=== PATIENT | male | born 1995 | race Caucasian/White ===

== ENCOUNTER 2017-07-15 09:49 | Emergency (ER) | payer SELFPAY ==
[~2017-07-15 09:49] MED LIST: CEPH500C3 PO; LORTA5 PO
[2017-07-15 09:50] VITALS: BP 166/80; PULSE 74; RESP 12; TEMP 98.6; O2SAT 100
== END 2017-07-15 11:48 | disposition left against medical advice (07) ==
LOC: NED 09:49
DX: Z00.8 Encounter for other general examination (principal); Z53.21 Procedure and treatment not carried out due to patient leaving prior to being seen by health care provider
CPT/HCPCS: 99281

== ENCOUNTER 2017-08-05 13:22 | Emergency (ER) | payer BC ==
[~2017-08-05] VITALS: Ht 177.8 cm; Wt 62.0 kg
[2017-08-05 13:24] VITALS: BP 132/89; PULSE 108; RESP 24; TEMP 98.4; O2SAT 97
[2017-08-05] MEDS ORDERED: ARIP2 PO (13:31)
[2017-08-05] MEDS ORDERED: SODIUM CHLORIDE 0.9% FLUSH 10 ML FLUSH IV FLUSH PRN (14:00)
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
--- NOTE | 2017-08-05 14:31 | RADRPT ---
EXAM DATE/TIME: 08/05/2017 14:09 [place] COMPARISON: No previous studies available for comparison. INDICATIONS : Shaking since yesterday. RADIATION DOSE: 34.88 CTDIvol (mGy) MEDICAL HISTORY : None SURGICAL HISTORY : None. ENCOUNTER: Initial ACUITY: 2 days PAIN SCALE: 0/10 LOCATION: Bilateral cranial TECHNIQUE: Multiple contiguous axial images were obtained of the head. Using automated exposure control and adj ustment of the mA and/or kV according to patient size, radiation dose was kept as low as reasonably a chievable to obtain optimal diagnostic quality images. DICOM format image data is available electro nically for review and comparison. FINDINGS: CEREBRUM: The ventricles are normal for age. No evidence of midline shift, mass lesion, hemorrhage or acute in farction. No extra-axial fluid collections are seen. POSTERIOR FOSSA: The cerebellum and brainstem are intact. The 4th ventricle is midline. The cerebellopontine angle i s unremarkable. EXTRACRANIAL: The visualized portion of the orbits is intact. SKULL: The calvaria is intact. No evidence of skull fracture. CONCLUSION: 1. No acute intracranial abnormality identified. Jah Centeno MD on August 05, 2017 at 14:29 Board Certified Radiologist. This report was verified electronically.
[2017-08-05 14:49] LABS: ALBUMIN 4.6 GM/DL (3.4-5.0); ALT (GPT) 30 U/L (9-52); AST (GOT) 22 U/L (15-39); AUTOMATED NEUTROPHIL # 10.1 TH/MM3 (1.8-7.7); BASOPHIL # 0.1 TH/MM3 (0-0.2); BASOPHIL % 0.5 % (0.0-2.0); BICARBONATE 28.6 MEQ/L (21.0-32.0); BLOOD UREA NITROGEN 14 MG/DL (7-18); CALCIUM 8.8 MG/DL (8.5-10.1); CHLORIDE 105 MEQ/L (98-107); CREATININE 1.11 MG/DL (0.60-1.30); EOSINOPHIL % 0.3 % (0.0-4.0); GLOMERULAR FILTRATION RATE 84 ML/MIN (>89); GLUCOSE,RANDOM 84 MG/DL (74-106); HEMATOCRIT 47.4 % (39.0-51.0); HEMOGLOBIN 16.3 GM/DL (13.0-17.0); LYMPH % 13.4 % (9.0-44.0); LYMPHOCYTE # 1.7 TH/MM3 (1.0-4.8); MEAN CORPUSCULAR HEMOGLOBIN 31.6 PG (27.0-34.0); MEAN CORPUSCULAR HGB CONC 34.4 % (32.0-36.0); MONO % 4.6 % (0.0-8.0); MONOCYTE # 0.6 TH/MM3 (0-0.9); NEUT % 81.2 % (16.0-70.0); PLATELET COUNT 205 TH/MM3 (150-450); RED BLOOD COUNT 5.16 MIL/MM3 (4.50-5.90); RED CELL DISTRIBUTION WIDTH 13.2 % (11.6-17.2); SODIUM (NA) 139 MEQ/L (136-145); WHITE BLOOD COUNT 12.4 TH/MM3 (4.0-11.0)
[2017-08-05 14:57] LABS: ALKALINE PHOSPHATASE 95 U/L (45-117); TOTAL BILIRUBIN ADULT 0.3 MG/DL (0.2-1.0); TOTAL PROTEIN 8.1 GM/DL (6.4-8.2)
[2017-08-05 15:53] LABS: BILIRUBIN, URINE NEG (NEG); BLOOD, URINE NEG (NEG); GLUCOSE,URINE NEG (NEG); KETONE, URINE NEG (NEG); MUCUS URINE FEW /lpf (OCC); NITRITE,URINE NEG (NEG); PH, URINE 6.5 (5.0-8.5); URINE COLOR YELLOW (YELLW/STRAW); URINE LEUKOCYTE ESTERASE NEG (NEG)
== END 2017-08-05 16:27 | disposition home or self-care (01) ==
LOC: NEPE 13:22
DX: R25.1 Tremor, unspecified (principal); R46.89 Other symptoms and signs involving appearance and behavior; F20.9 Schizophrenia, unspecified; F31.9 Bipolar disorder, unspecified; F90.9 Attention-deficit hyperactivity disorder, unspecified type; M41.9 Scoliosis, unspecified; Z72.0 Tobacco use; Z79.899 Other long term (current) drug therapy
CPT/HCPCS: 70450; 80053; 80307; 81001; 82550; 84443; 85025

== ENCOUNTER 2017-08-07 22:59 | Inpatient (IN) | payer BC, OTHER ==
[~2017-08-07] VITALS: Ht 172.7 cm; Wt 65.3 kg
[~2017-08-07 22:59] MED LIST changes: +ARIP2 PO; -CEPH500C3 PO; -LORTA5 PO
[2017-08-07 23:15] VITALS: BP 128/83; PULSE 83; RESP 18; TEMP 98.1; O2SAT 98
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
[2017-08-07 23:50] LABS: AUTOMATED NEUTROPHIL # 7.5 TH/MM3 (1.8-7.7); BASOPHIL # 0.1 TH/MM3 (0-0.2); BASOPHIL % 0.6 % (0.0-2.0); EOSINOPHIL # 0.1 TH/MM3 (0-0.4); EOSINOPHIL % 0.6 % (0.0-4.0); HEMATOCRIT 43.1 % (39.0-51.0); HEMOGLOBIN 14.7 GM/DL (13.0-17.0); LYMPH % 19.1 % (9.0-44.0); MEAN CELL VOLUME 90.3 FL (80.0-100.0); MEAN CORPUSCULAR HEMOGLOBIN 30.9 PG (27.0-34.0); MEAN CORPUSCULAR HGB CONC 34.2 % (32.0-36.0); MEAN PLATELET VOLUME 8.3 FL (7.0-11.0); MONO % 6.4 % (0.0-8.0); MONOCYTE # 0.7 TH/MM3 (0-0.9); NEUT % 73.3 % (16.0-70.0); PLATELET COUNT 186 TH/MM3 (150-450); RED BLOOD COUNT 4.77 MIL/MM3 (4.50-5.90); RED CELL DISTRIBUTION WIDTH 13.4 % (11.6-17.2); WHITE BLOOD COUNT 10.2 TH/MM3 (4.0-11.0)
[2017-08-08 00:01] LABS: BILIRUBIN, URINE NEG (NEG); BLOOD, URINE NEG (NEG); GLUCOSE,URINE NEG (NEG); HYALINE CAST, URINE 4 /lpf (RARE); KETONE, URINE NEG (NEG); MUCUS URINE FEW /lpf (OCC); NITRITE,URINE NEG (NEG); SQUAMOUS EPITHELIAL CELL URINE <1 /hpf (0-5); URINE COLOR YELLOW (YELLW/STRAW); URINE LEUKOCYTE ESTERASE NEG (NEG)
[2017-08-08 00:08] LABS: ALBUMIN 4.3 GM/DL (3.4-5.0); ALT (GPT) 23 U/L (9-52); AST (GOT) 21 U/L (15-39); BICARBONATE 26.8 MEQ/L (21.0-32.0); BLOOD UREA NITROGEN 12 MG/DL (7-18); CALCIUM 8.7 MG/DL (8.5-10.1); CHLORIDE 108 MEQ/L (98-107); CREATININE 0.99 MG/DL (0.60-1.30); GLOMERULAR FILTRATION RATE 96 ML/MIN (>89); GLUCOSE,RANDOM 91 MG/DL (74-106); SODIUM (NA) 142 MEQ/L (136-145)
[2017-08-08 00:10] LABS: ALKALINE PHOSPHATASE 91 U/L (45-117); TOTAL BILIRUBIN ADULT 0.2 MG/DL (0.2-1.0); TOTAL PROTEIN 7.3 GM/DL (6.4-8.2)
[2017-08-08 00:20] VITALS: BP 139/87; PULSE 75; RESP 18; TEMP 98; O2SAT 98
[2017-08-08 06:34] VITALS: BP 143/86; PULSE 69; RESP 18; TEMP 98.1; O2SAT 99
[2017-08-08] MEDS ORDERED: diphenhydrAMINE HCL 50 MG/ML VIAL IM PRN (09:30)
[2017-08-08] MEDS ORDERED: MAGNESIUM HYDROXIDE SUSP 30 ML CUP PO PRN (09:30)
[2017-08-08] MEDS ORDERED: diphenhydrAMINE HCL 50 MG CAP PO PRN (09:30)
[2017-08-08] MEDS ORDERED: ALUMINUM/MAGNESIUM/SIMETH 30 ML CUP PO PRN (09:30)
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
[2017-08-08 11:06] VITALS: BP 132/75; PULSE 75; RESP 18; O2SAT 98
[2017-08-08] MEDS ORDERED: diphenhydrAMINE HCL 50 MG/ML VIAL IM ONE (12:15)
[2017-08-08] MEDS ORDERED: LORazepam 2 MG/ML VIAL IM ONE (12:15)
[2017-08-08] MEDS ORDERED: HALOPERIDOL LACTATE 5 MG/ML AMP IM ONE (12:15)
[2017-08-08 13:08] VITALS: BP 100/62; PULSE 62; RESP 16; TEMP 98.4; O2SAT 98
[2017-08-08 15:50] VITALS: BP 121/61; PULSE 71; RESP 20; TEMP 99
[2017-08-08 17:22] VITALS: BP 121/61; PULSE 71; RESP 18; TEMP 98.2; O2SAT 99
[2017-08-09 05:39] VITALS: BP 111/54; PULSE 78; RESP 16; TEMP 97.7; O2SAT 98
[2017-08-09 08:58] LABS: AUTOMATED NEUTROPHIL # 7.1 TH/MM3 (1.8-7.7); BASOPHIL # 0.1 TH/MM3 (0-0.2); BASOPHIL % 0.7 % (0.0-2.0); EOSINOPHIL # 0.1 TH/MM3 (0-0.4); EOSINOPHIL % 0.8 % (0.0-4.0); HEMATOCRIT 46.5 % (39.0-51.0); HEMOGLOBIN 16.3 GM/DL (13.0-17.0); LYMPH % 18.7 % (9.0-44.0); LYMPHOCYTE # 1.8 TH/MM3 (1.0-4.8); MEAN CELL VOLUME 90.1 FL (80.0-100.0); MEAN CORPUSCULAR HEMOGLOBIN 31.7 PG (27.0-34.0); MEAN CORPUSCULAR HGB CONC 35.1 % (32.0-36.0); MEAN PLATELET VOLUME 8.1 FL (7.0-11.0); MONO % 5.3 % (0.0-8.0); MONOCYTE # 0.5 TH/MM3 (0-0.9); NEUT % 74.5 % (16.0-70.0); PLATELET COUNT 213 TH/MM3 (150-450); RED BLOOD COUNT 5.16 MIL/MM3 (4.50-5.90); RED CELL DISTRIBUTION WIDTH 13.6 % (11.6-17.2); WHITE BLOOD COUNT 9.5 TH/MM3 (4.0-11.0)
--- NOTE | 2017-08-09 09:12 | PD.TTN ---
Patient Problems 1. Discharge planning 2. Medication compliance 3. Knowledge deficit 4. Lack of coping skills Progress Toward Goals Provider Present: Dr. Carlin Caldwell Provider Input: 08/09/2017; Patient is being assess for medical needs and medication adjustment will be made Nurse(s) Present: JOSE Nunezradial router operator Counselors Present: DAINA Anthony Psych Therapist Input: 08/09/2017: patient will be assess for discharge needs, placement, services and treatment Group Spec/RT/OT/FELIZ Present: Praneeth Jasmine OT, TRAY Lafleur Group Spec/RT/OT/FELIZ Input: 08/09/2017; patient will be given inpatient treatment information Documentation Scribe: DAINA Anthony Sandra LMHC Aug 09, 2017 09:12
[2017-08-09 09:31] LABS: ALBUMIN 4.6 GM/DL (3.4-5.0); AST (GOT) 59 U/L (15-39); BICARBONATE 27.4 MEQ/L (21.0-32.0); BLOOD UREA NITROGEN 16 MG/DL (7-18); CALCIUM 9.2 MG/DL (8.5-10.1); CHLORIDE 109 MEQ/L (98-107); CHOLESTEROL 128 MG/DL (120-200); CREATININE 1.07 MG/DL (0.60-1.30); GLOMERULAR FILTRATION RATE 88 ML/MIN (>89); GLUCOSE,RANDOM 79 MG/DL (74-106); SODIUM (NA) 143 MEQ/L (136-145)
[2017-08-09 09:59] LABS: ALKALINE PHOSPHATASE 90 U/L (45-117); ALT (GPT) 28 U/L (9-52); CHOLESTEROL/ HDL RATIO 2.89 RATIO; HDL CHOLESTEROL 44.2 MG/DL (40.0-60.0); LDL CHOLESTEROL 66 MG/DL (0-99); TOTAL BILIRUBIN ADULT 0.7 MG/DL (0.2-1.0); TOTAL PROTEIN 7.8 GM/DL (6.4-8.2); TRIGLYCERIDES 89 MG/DL (42-150)
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
[2017-08-09] MEDS ORDERED: BENZTROPINE MESYLATE 2 MG/2 ML VIAL IM PRN (10:45)
[2017-08-09] MEDS: LORazepam 1 MG TAB PO PRN (12:17)
[2017-08-09 17:17] LABS: HEMOGLOBIN A1C 5.4 % (4.3-6.0)
[2017-08-09 17:47] VITALS: BP 117/71; PULSE 76; RESP 17; TEMP 99.1; O2SAT 99
[2017-08-09] MEDS ORDERED: HALOPERIDOL LACTATE 5 MG/ML AMP ONE (18:46)
[2017-08-09] MEDS ORDERED: diphenhydrAMINE HCL 50 MG/ML VIAL ONE (18:48)
[2017-08-09] MEDS ORDERED: HALOPERIDOL LACTATE 5 MG/ML AMP IM ONE (19:15)
[2017-08-09] MEDS ORDERED: diphenhydrAMINE HCL 50 MG/ML VIAL IM ONE (19:15)
[2017-08-09] MEDS ORDERED: LORazepam 2 MG/ML VIAL IM ONE (19:15)
[2017-08-09] MEDS ORDERED: OLANZapine ODT 10 MG TAB PO SCH (21:00)
[2017-08-10] MEDS: CHOLECALCIFEROL (VIT D3) 1000 UNIT TAB PO SCH (08:22)
[2017-08-10] MEDS: BENZTROPINE MESYLATE 1 MG TAB PO PRN (08:23)
--- NOTE | 2017-08-10 08:48 | HHI.PYPN ---
Subjective Chief Complaint: Psychosis Remarks Patient seen and examined with nurse. Chart reviewed. No records from [facility] on paper chart but these have been requested. Case discussed with nursing staff. Patient continues to respond to internal stimuli per nursing staff. On my examination today, the patient is quite intrusive and anxious. He was agitated overnight and required Haldol, Ativan and Benadryl ETO. Patient is quite distractible and somewhat disorganized. He remains delusional on themes as detailed yesterday. He is quite intrusive and follows me around the unit as I am rounding on other patients. He is somewhat tremulous with cog-wheeling, but it is unclear if this is from the Haldol or the Zyprexa. I have instructed the nurse to provide patient with his Cogentin p.r.n.. No other medication side effects. No physical complaints. Lengthy telephone conversation with patient's parents. We discuss patient's progress on the unit and treatment plan going forward. We discuss differential diagnosis and possible prognoses. We discuss discharge and aftercare planning. I have referred them to the APA and IVAN websites for more information. All of parent's questions answered. I spent about 18 minutes in telephone consultation. Review of Systems ROS Limitations: Psychotic, Poor Historian Except as stated in HPI: all other systems reviewed are Neg Mental Status Examination Appearance: Disheveled Consciousness: Alert Orientation: Person, Place Motor Activity: Normal gait, Other (mild resting hand tremor and cogwheeling. No other signs of EPS. No dystonias or dyskinesias noted.) Speech: Rapid Language: Other (rambling) Fund of Knowledge: Adequate Attention and Concentration: Easily Distracted Memory: Impaired (psychosis interferes) Mood: Anxious Affect: Anxious Thought Process & Associations: Tangential (disorganized at times) Thought Content: Bizarre thinking, Delusional Hallucination Type: Other (remains internally stimulated) Delusion Type: Bizarre, Paranoid, Other (grandiose) Suicidal Ideation: No (unreliable to contract for safety) Suicidal Plan: No Suicidal Intention: No Homicidal Ideation: No (unreliable to contract for safety) Homicidal Plan: No Homicidal Intention: No Insight: Poor Judgment: Poor Results Labs Labs reviewed. EKG normal sinus rhythm with a QTC of 384 ms, not prolonged. 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 I will titrate the patient's Zyprexa to 15 mg at bedtime to target psychotic symptoms but will hold off on adding a scheduled anticholinergic as I am unsure if the patient's EPS this morning is due to Zyprexa or to the Haldol he received ETO overnight. I will continue to monitor the patient on the inpatient psychiatric unit. Continue other medications and care as ordered. Justification for Cont. Inpt. Impairment in reality construction. Medication changes. High risk for decompensation in less restrictive environment. Discharge Planning Pending psychiatric stabilization. Request HC Surrog/Guard Advoc?: Yes Walt Caldwell MD Aug 10, 2017 08:48
[2017-08-10] MEDS: LORazepam 1 MG TAB PO PRN (12:25)
[2017-08-10 15:16] VITALS: BP 128/72; PULSE 72; RESP 18; TEMP 99.3; O2SAT 99
--- NOTE | 2017-08-10 16:04 | EKG ---
Date Performed: 08/09/2017 Time Performed: 11:52:49 PTAGE: 22 years EKG: Sinus rhythm NORMAL ECG NO PREVIOUS TRACING DOCTOR: Dennis Enriquez Interpretating Date/Time 08/10/2017 16:02:26
[2017-08-10] MEDS: NICOTINE 7 MG/24 HR PATCH T-DERMAL PRN (18:27)
[2017-08-10] MEDS ORDERED: OLANZapine ODT 15 MG TAB PO SCH (21:00)
[2017-08-11 06:09] VITALS: BP 115/72; PULSE 62; RESP 16; TEMP 97.8
[2017-08-11] MEDS: ACETAMINOPHEN 325 MG TAB PO PRN (06:20)
[2017-08-11] MEDS: CHOLECALCIFEROL (VIT D3) 1000 UNIT TAB PO SCH (08:11)
[2017-08-11] MEDS ORDERED: diphenhydrAMINE HCL 50 MG/ML VIAL IM STA (10:06)
[2017-08-11] MEDS ORDERED: ZIPRASIDONE MESYLATE 20 MG VIAL IM STA (10:06)
--- NOTE | 2017-08-11 10:13 | HHI.PYPN ---
Subjective Chief Complaint: Psychosis Remarks Patient seen and examined with nurse. Chart reviewed. Case discussed with nursing staff. On my examination today, patient is exceedingly intrusive. He remains disorganized, and nursing staff notes that he was bouncing up and down in the hallway and pounding on the door. He remains delusional. He is irritable. His case was presented to [place] [facility]; mother was in attendance. After he was returned to the unit, patient became increasingly agitated. He was placed in the short wade where he began pounding on the nursing station glass and kicking at the door. His level of agitation increased , and it was feared that he might seriously damage himself. I ordered the patient placed in restraints for safety and have ordered him medicated with Geodon and Benadryl ETO. I was present for agro-xi-qxti assessment at the initiation of restraints. I also returned a short time later to assess for pain complaints related to his striking/kicking. He denied pain to me but later reported L ankle and R hand pain to RN. I have ordered x-rays of these areas. Spoke with patient's mother and GA this afternoon. We discuss patient's progress on the unit. Mother notes that patient is perhaps slightly clearer with Zyprexa, although he remains severely decompensated in general in her estimation. We discuss need for restraints this morning. Mother notes that patient's maternal grandmother has a diagnosis of bipolar disorder, and she will endeavor to identify what medication grandmother has been stabilized on. She thanks me for the call. Review of Systems ROS Limitations: Psychotic, Poor Historian Except as stated in HPI: all other systems reviewed are Neg Mental Status Examination Appearance: Disheveled Consciousness: Alert, Vigilant Orientation: Person, Place (at least) Motor Activity: Normal gait, Other (no motor abnormalities noted. In particular no signs of EPS.) Speech: Rapid Language: Other (remains rambling) Fund of Knowledge: Adequate Attention and Concentration: Easily Distracted Memory: Impaired (psychosis interferes) Mood: Anxious, Irritable Affect: Irritable, Anxious Thought Process & Associations: Tangential (perhaps a little bit more organized today but considerably thought disordered overall) Thought Content: Bizarre thinking, Delusional Hallucination Type: Other (remains internally stimulated) Delusion Type: Bizarre, Paranoid Suicidal Ideation: No (unreliable to contract for safety) Suicidal Plan: No Suicidal Intention: No Homicidal Ideation: No (unreliable to contract for safety) Homicidal Plan: No Homicidal Intention: No Insight: Poor Judgment: Poor Results Labs Labs reviewed. 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 Follow-up x-rays of ankle and hand. Discontinue restraints when safe to do so. I will request an occupational therapy consultation. Continue to monitor on the high acuity unit. Continue other medications and care as ordered. Justification for Cont. Inpt. Medication changes. Impairment in reality construction. High risk for decompensation in less restrictive environment. Discharge Planning Pending psychiatric stabilization. Request HC Surrog/Guard Advoc?: Yes Walt Caldwell MD Aug 11, 2017 10:13
--- NOTE | 2017-08-11 14:29 | RADRPT ---
EXAM DATE/TIME: 08/11/2017 13:30 [facility] COMPARISON: No previous studies available for comparison. INDICATIONS : Right hand pain at 3rd-4th MCPJ after punching wall. MEDICAL HISTORY : None. SURGICAL HISTORY : None. ENCOUNTER: Initial ACUITY: 1 day PAIN SCORE: 4/10 LOCATION: Right hand FINDINGS: Two view examination of the right hand demonstrates no soft tissue swelling, dislocation, or fracture . The joint spaces are maintained. Bony mineralization is normal. CONCLUSION: Negative examination. No fracture seen. Feng Del Castillo MD on August 11, 2017 at 14:27 Board Certified Radiologist. This report was verified electronically.
--- NOTE | 2017-08-11 14:30 | RADRPT ---
EXAM DATE/TIME: 08/11/2017 13:37 [facility] COMPARISON: No previous studies available for comparison. INDICATIONS : Left ankle pain. Patient poor historian. MEDICAL HISTORY : None. SURGICAL HISTORY : None. ENCOUNTER: Initial ACUITY: 1 day PAIN SCORE: 3/10 LOCATION: Left ankle FINDINGS: Two view exam was performed of the left ankle. The bony structures are in normal alignment. No evid ence of fracture, dislocation, or soft tissue swelling. No radiopaque foreign bodies are seen. Bony mineralization is normal. CONCLUSION: Negative examination. Feng Del Castillo MD on August 11, 2017 at 14:28 Board Certified Radiologist. This report was verified electronically.
--- NOTE | 2017-08-11 14:43 | RADRPT ---
EXAM DATE/TIME: 08/11/2017 13:40 [facility] COMPARISON: No previous studies available for comparison. INDICATIONS : Right ankle pain. Patient poor historian. MEDICAL HISTORY : None. SURGICAL HISTORY : None. ENCOUNTER: Initial ACUITY: 1 day PAIN SCORE: 3/10 LOCATION: Right ankle FINDINGS: Two view examination was performed of the right ankle. The bony structures are in normal alignment. No evidence of fracture, dislocation, or soft tissue swelling. Unfused tip of the ulnar styloid pro cess. No radiopaque foreign bodies are seen. Bony mineralization is normal. CONCLUSION: No evidence of recent bony injury. Feng Del Castillo MD on August 11, 2017 at 14:40 Board Certified Radiologist. This report was verified electronically.
[2017-08-11] MEDS: NICOTINE 7 MG/24 HR PATCH T-DERMAL PRN (14:47)
[2017-08-11 16:38] VITALS: BP 133/56; PULSE 80; RESP 17; TEMP 98.5; O2SAT 99
[2017-08-11] MEDS: LORazepam 1 MG TAB PO PRN (20:30)
[2017-08-11] MEDS ORDERED: OLANZapine ODT 20 MG TAB PO SCH (21:00)
[2017-08-12 06:12] VITALS: BP 120/66; PULSE 58; RESP 16; TEMP 96.5; O2SAT 99
[2017-08-12] MEDS: CHOLECALCIFEROL (VIT D3) 1000 UNIT TAB PO SCH (08:14)
--- NOTE | 2017-08-12 08:54 | HHI.PYPN ---
Subjective Chief Complaint: Psychosis Remarks Patient seen and examined with nurse. Chart reviewed. No outside hospital records have been received on paper chart. Case discussed with nursing staff. On my examination today, the patient is oppositional. He is trying to bargain regarding length of stay. He has disinhibited, impulsive and intrusive. He remains internally preoccupied. He is easily irritated and has poor frustration tolerance. Denies side effects from medications. Review of Systems ROS Limitations: Psychotic, Poor Historian Except as stated in HPI: all other systems reviewed are Neg Mental Status Examination Appearance: Disheveled Consciousness: Alert, Vigilant Orientation: Person, Place Motor Activity: Normal gait, Other (no abnormal motor movements noted) Speech: Unremarkable Language: Other (remains rambling) Fund of Knowledge: Adequate Attention and Concentration: Easily Distracted Memory: Impaired (psychosis interferes) Mood: Oppositional, Anxious, Irritable Affect: Irritable, Anxious Thought Process & Associations: Other (perhaps a little bit more organized today) Thought Content: Bizarre thinking, Delusional Hallucination Type: Other (internally preoccupied) Delusion Type: Bizarre, Paranoid Suicidal Ideation: No (unreliable to contract for safety) Suicidal Plan: No Suicidal Intention: No Homicidal Ideation: No (unreliable to contract for safety) Homicidal Plan: No Homicidal Intention: No Insight: Poor Judgment: Poor Results Labs Labs reviewed Vitals/IOs Vital Signs Date Time Temp Pulse Resp B/P (MAP) Pulse Ox O2 Delivery O2 Flow Rate FiO2 08/12/17 06:12 96.5 58 16 120/66 (84) 99 Assessment & Plan Problem List: (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 To consider addition of a mood stabilizer as there does seem to be somewhat of an affective component. Continue to monitor on the high acuity unit, although I would like to transfer the patient to the lower acuity unit once his behavior allows. Continue other medications and care as ordered. Justification for Cont. Inpt. Med changes. Impairment in reality construction. High risk for decompensation in less restrictive environment. Discharge Planning Pending psychiatric stabilization Request HC Surrog/Guard Advoc?: Yes Walt Caldwell MD Aug 12, 2017 08:54
--- NOTE | 2017-08-12 10:48 | PD.TTN ---
Patient Problems 1. Discharge planning 2. Medication compliance 3. Knowledge deficit 4. Lack of coping skills Progress Toward Goals Provider Present: Dr. Carlin Caldwell Provider Input: 08/12/17 - Patient continues to meet criteria. Dr. Caldwell is titrating patient's Zyprexa. 08/09/2017; Patient is being assess for medical needs and medication adjustment will be made Nurse(s) Present: JOSE Nunezseamless tube drawer Counselors Present: Tan Chun Jr., [facility], Damaris Resendez, [facility] , Savita Falcon [facility] Psych Therapist Input: 08/12/17 - Patient required an ETO and restraints yesterday. He remains internally stimulated and impulsive. 08/09/2017: patient will be assess for discharge needs, placement, services and treatment Group Spec/RT/OT/FELIZ Present: Susana Lino, GPS, Praneeth Jasmine, OT, Antoni Osman, FELIZ Group Spec/RT/OT/FELIZ Input: 08/12/17 - Patient required frequent redirection. 08/09/2017; patient will be given inpatient treatment information Discharge Plan [facility] 08/12/17 - Patient will be discharged home when deemed appropriate by Dr. Caldwell. Documentation Scribe: DAVID Lagos Date Resolved: Aug 12, 2017 Savita Falcon Aug 12, 2017 10:48
[2017-08-12] MEDS ORDERED: diphenhydrAMINE HCL 50 MG/ML VIAL ONE (16:23)
[2017-08-12] MEDS ORDERED: ZIPRASIDONE MESYLATE 20 MG VIAL IM ONE ×2 (16:23→16:30)
[2017-08-12] MEDS ORDERED: diphenhydrAMINE HCL 50 MG/ML VIAL IM ONE (16:30)
[2017-08-12 18:10] VITALS: BP 130/62; PULSE 91; RESP 18; TEMP 99; O2SAT 98
[2017-08-12] MEDS ORDERED: OLANZapine ODT 5 MG TAB PO ONE (21:00)
[2017-08-12] MEDS ORDERED: OLANZapine ODT 20 MG TAB PO SCH (21:00)
--- NOTE | 2017-08-12 23:06 | EKG ---
Date Performed: 08/12/2017 Time Performed: 18:10:49 PTAGE: 22 years EKG: Sinus rhythm BORDERLINE RIGHT AXIS DEVIATION POSSIBLE RIGHT VENTRICULAR CONDUCTION DELAY ST ELEVATION, PROBABLY E KAYLEY REPOLARIZATION BORDERLINE ECG PREVIOUS TRACING : 08/09/2017 11.52 No significant change from previous tracing noted. DOCTOR: Phong Weller Interpretating Date/Time 08/12/2017 23:04:43
[2017-08-13 06:03] VITALS: BP 125/61; PULSE 66; RESP 18; TEMP 97.3; O2SAT 98
[2017-08-13] MEDS: CHOLECALCIFEROL (VIT D3) 1000 UNIT TAB PO SCH (07:58)
--- NOTE | 2017-08-13 14:12 | HHI.PYPN ---
Subjective Chief Complaint: Psychosis Remarks Pt seen and discussed with staff. Yesterday he was agitated and received thorazine 50mg IM X 1 and later Geodon 20 IM and Benadryl 50 IM due to extreme agitation. today he has been calm and cooperative. He has been participating in unit activities. thought process remains loose and disorganized. Mental Status Examination Appearance: Disheveled Consciousness: Alert, Vigilant Orientation: Person, Place Motor Activity: Normal gait, Other (no abnormal motor movements) Speech: Rapid Language: Other (remains rambling) Fund of Knowledge: Adequate Attention and Concentration: Easily Distracted Memory: Impaired (fair) Mood: Manic Affect: Labile Thought Process & Associations: Loose associations, Disorganized Thought Content: Bizarre thinking, Delusional Hallucination Type: Other (internally preoccupied) Delusion Type: Bizarre, Paranoid Suicidal Ideation: No (unreliable to contract for safety) Suicidal Plan: No Suicidal Intention: No Homicidal Ideation: No (unreliable to contract for safety) Homicidal Plan: No Homicidal Intention: No Insight: Poor Judgment: Poor Results Vitals/IOs Vital Signs Date Time Temp Pulse Resp B/P (MAP) Pulse Ox O2 Delivery O2 Flow Rate FiO2 08/13/17 06:03 97.3 66 18 125/61 (82) 98 Assessment & Plan Problem List: (1) 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 Estimated LOS: days Justification for Cont. Inpt. psychosis Request HC Surrog/Guard Advoc?: Yes Mabel Hayes MD Aug 13, 2017 14:12
[2017-08-13 18:00] VITALS: BP 132/82; PULSE 92; RESP 18; TEMP 99.3
[2017-08-13] MEDS: OLANZapine ODT 15 MG TAB PO SCH (20:45)
[2017-08-13] MEDS: ACETAMINOPHEN 325 MG TAB PO PRN (22:08)
[2017-08-13] MEDS: LORazepam 1 MG TAB PO PRN (22:08)
[2017-08-14 06:12] VITALS: BP 132/90; PULSE 63; RESP 19; TEMP 97.3; O2SAT 98
[2017-08-14] MEDS: CHOLECALCIFEROL (VIT D3) 1000 UNIT TAB PO SCH (08:23)
[2017-08-14] MEDS: NICOTINE 7 MG/24 HR PATCH T-DERMAL PRN (08:25)
--- NOTE | 2017-08-14 10:46 | HHI.PYPN ---
Subjective Chief Complaint: Psychosis Remarks Pt seen and discussed with staff. He has been childlike with poor insight into illness, but has been cooperative with care and medications. He remains delusional and intrusive with poor social boundaries.No SI/HI Mental Status Examination Appearance: Disheveled Consciousness: Alert, Vigilant Orientation: Person, Place Motor Activity: Normal gait, Other (no abnormal motor movements) Speech: Rapid Language: Other (remains rambling) Fund of Knowledge: Adequate Attention and Concentration: Easily Distracted Memory: Impaired (fair) Mood: Manic Affect: Labile Thought Process & Associations: Loose associations, Disorganized Thought Content: Bizarre thinking, Delusional Hallucination Type: Other (internally preoccupied) Delusion Type: Bizarre, Paranoid Suicidal Ideation: No (unreliable to contract for safety) Suicidal Plan: No Suicidal Intention: No Homicidal Ideation: No (unreliable to contract for safety) Homicidal Plan: No Homicidal Intention: No Insight: Poor Judgment: Poor Results Vitals/IOs Vital Signs Date Time Temp Pulse Resp B/P (MAP) Pulse Ox O2 Delivery O2 Flow Rate FiO2 08/14/17 06:12 97.3 63 19 132/90 (104) 98 Assessment & Plan Problem List: (1) 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 Estimated LOS: days Justification for Cont. Inpt. impairments in social functioning and reality testing Request HC Surrog/Guard Advoc?: Yes Mabel Hayes MD Aug 14, 2017 10:46
[2017-08-14 16:30] VITALS: BP 126/56; PULSE 67; RESP 18; TEMP 97.9; O2SAT 98
[2017-08-14] MEDS: OLANZapine ODT 15 MG TAB PO SCH (20:27)
[2017-08-14] MEDS: LORazepam 1 MG TAB PO PRN (20:27)
[2017-08-15 06:18] VITALS: BP 103/57; PULSE 76; RESP 18; TEMP 97.2; O2SAT 98
[2017-08-15] MEDS: LORazepam 1 MG TAB PO PRN (10:29)
[2017-08-15] MEDS: CHOLECALCIFEROL (VIT D3) 1000 UNIT TAB PO SCH (10:29)
--- NOTE | 2017-08-15 13:45 | HHI.PYPN ---
Subjective Chief Complaint: Psychosis Remarks Patient seen and examined with nurse. Chart reviewed. Case discussed with nursing staff who notes that the patient has begun mimicking the behaviors of a disruptive manic patient on the unit. He remains fairly psychotic. He told the nurse that he wanted to be called Zach because this is his favorite brand of candelaria. On my examination today, the patient is quite discharge focused. He remains internally stimulated, and when I ask him about hallucinations he says that he is experiencing "just my imagination." He gives irrelevant responses to questions at times. He denies any SI or HI but seems unreliable to contract for safety. He says that his visit with his parents went "wonderful" and that the medication "works great" and in general the patient seems to be trying to ' play good' to facilitate rapid discharge. No physical complaints besides some mild back pain. Spoke with the patient's mother over the phone. She has seen modest improvement with the Zyprexa but believes the patient remains fairly psychotic. We discuss possibly switching the patient's antipsychotic since he is receiving a maximal dose of Zyprexa and in particular discuss other options including Risperdal, Geodon, Invega, Haldol or Prolixin. We will continue the Zyprexa 1 or 2 more nights to see if additional benefit can be derived, but if there is not an them we will plan to make a switch. I spent about 15 minutes and telephone consultation with patient's mother. Review of Systems ROS Limitations: Psychotic, Poor Historian Except as stated in HPI: all other systems reviewed are Neg Mental Status Examination Appearance: Other (grooming is improving) Consciousness: Alert Orientation: Person, Place (at least) Motor Activity: Normal gait, Other (no motor abnormalities noted) Speech: Unremarkable Language: Other (less rambling) Fund of Knowledge: Adequate Attention and Concentration: Easily Distracted Memory: Impaired (fair) Mood: Anxious Affect: Blunt Thought Process & Associations: Tangential Thought Content: Bizarre thinking, Hallucinations Hallucination Type: Other (internally preoccupied) Delusion Type: None Suicidal Ideation: No (unreliable to contract for safety) Suicidal Plan: No Suicidal Intention: No Homicidal Ideation: No (unreliable to contract for safety) Homicidal Plan: No Homicidal Intention: No Insight: Poor Judgment: Poor Results Labs Labs reviewed. No new labs. 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 To consider changing to a different antipsychotic. Continue to monitor on the high acuity unit. Continue other medications and care as ordered. Justification for Cont. Inpt. Impairment in reality construction. High risk for decompensation in less restrictive environment. Discharge Planning Pending psychiatric stabilization. Request HC Surrog/Guard Advoc?: Yes Walt Caldwell MD Aug 15, 2017 13:45
[2017-08-15 17:45] VITALS: BP 119/62; PULSE 62; RESP 18; TEMP 99.8; O2SAT 98
[2017-08-15] MEDS: OLANZapine ODT 15 MG TAB PO SCH (20:42)
[2017-08-16 06:10] VITALS: BP 107/56; PULSE 64; RESP 18; TEMP 97.9; O2SAT 99
--- NOTE | 2017-08-16 09:34 | HHI.PYPN ---
Subjective Chief Complaint: Psychosis Remarks Patient seen and examined with nurse. Chart reviewed. Case discussed with nursing staff. Case discussed in treatment team. On my examination today, the patient remains a little bit internally preoccupied. Some bizarre ideation noted. No SI or HI. He denies side effects from medications. No physical complaints. Discussed case with patient's GA/mother over the phone. She notes patient has had some improvement in cognition on Zyprexa but remains fairly delusional. He reportedly blames mother for hospitalization and told her "you're doomed" which mother interpreted as somewhat threatening. We discuss adjusting pharmacotherapy for patient's psychosis. After a discussion of R/B/A, we settle on cross-taper from Zyprexa to Risperdal. Side effects of Risperdal reviewed with mother including metabolic side effects, movement disorder side effects, and potential risk for gynecomastia from hyperprolactinemia. Review of Systems ROS Limitations: Psychotic, Poor Historian Except as stated in HPI: all other systems reviewed are Neg Mental Status Examination Appearance: Other (fair grooming) Consciousness: Alert Orientation: Person, Place (at least) Motor Activity: Normal gait, Other (no hand tremor, no cogwheeling, no dystonia , no dyskinesia.) Speech: Unremarkable Language: Other (a little more organized today) Fund of Knowledge: Adequate Attention and Concentration: Easily Distracted Memory: Impaired (fair) Mood: Other (calm) Affect: Blunt Thought Process & Associations: Tangential Thought Content: Bizarre thinking, Hallucinations Hallucination Type: Other (remains a little internally stimulated) Delusion Type: None Suicidal Ideation: No Suicidal Plan: No Suicidal Intention: No Homicidal Ideation: No Homicidal Plan: No Homicidal Intention: No Insight: Poor Judgment: Poor Results Labs Labs reviewed. 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 Zyprexa Zydis 20mg starting tonight and Risperdal M-Tabs 1mg BID starting this evening as well. Plan to continue cross taper throughout the rest of the week. To consider long-acting injectable Risperdal or Invega Sustenna if Risperdal seems more efficacious than the Zyprexa. Transfer to lower acuity unit as patient has not been aggressive or assaultive on the high acuity unit and seems generally more appropriate for the lower acuity unit at this point. Continue other medications and care as ordered. Justification for Cont. Inpt. Medication changes. Impairment in reality construction. High risk for decompensation in less restrictive environment. Discharge Planning Pending psychiatric stabilization Request HC Surrog/Guard Advoc?: Yes Walt Caldwell MD Aug 16, 2017 09:34
[2017-08-16] MEDS: CHOLECALCIFEROL (VIT D3) 1000 UNIT TAB PO SCH (10:23)
[2017-08-16] MEDS ORDERED: ZIPRASIDONE MESYLATE 20 MG VIAL IM STA (14:09)
[2017-08-16] MEDS: LORazepam 2 MG/ML VIAL IM PRN (14:15)
--- NOTE | 2017-08-16 14:50 | PD.TTN ---
Patient Problems 1. Discharge planning 2. Medication compliance 3. Knowledge deficit 4. Lack of coping skills Progress Toward Goals Provider Present: Dr. Carlin Caldwell Provider Input: 08/16/2018; patient is responding slowing with medication, requires ongoing treatment 08/12/17 - Patient continues to meet criteria. Dr. Caldwell is titrating patient's Zyprexa. 08/09/2017; Patient is being assess for medical needs and medication adjustment will be made Nurse(s) Present: JOSE Richey Nurse(s) Input: 08/16/2017; patient required a recent ETO, noncompliant with treatment requires redirection; verbally aggressive and violient behavior Psychiatric Counselors Present: Tan Chun Jr., [facility], Damaris Resendez [facility] , Savita Falcon [facility] Psych Therapist Input: 08/16/2017; Encourage with meals, medication and behavior 08/12/17 - Patient required an ETO and restraints yesterday. He remains internally stimulated and impulsive. 08/09/2017: patient will be assess for discharge needs, placement, services and treatment Group Spec/RT/OT/FELIZ Present: Susana Lino, GPS, Praneeth Jasmine, OT, Antoni Osman, FELIZ Group Spec/RT/OT/FELIZ Input: 08/16/2017; patient is discharged focus, unable to attend groups due to his behavior 08/12/17 - Patient required frequent redirection. 08/09/2017; patient will be given inpatient treatment information Discharge Plan [facility] 08/12/17 - Patient will be discharged home when deemed appropriate by Dr. Caldwell. Documentation Scribe: DAINA Anthony Date Resolved: Aug 12, 2017 Damaris Resendez Aug 16, 2017 14:50
--- NOTE | 2017-08-16 16:11 | RADRPT ---
EXAM DATE/TIME: 08/16/2017 15:28 [facility] COMPARISON: No previous studies available for comparison. INDICATIONS : Pain in right hand, swelling to posterior hand. MEDICAL HISTORY : None. SURGICAL HISTORY : None. ENCOUNTER: Subsequent ACUITY: 4 - 6 days PAIN SCORE: 5/10 LOCATION: Right hand FINDINGS: Three view examination of the right hand demonstrates no acute fracture or malalignment. There is mil d soft tissue swelling over the dorsum of the hand. The carpal bones appear intact. The interphalang eal and metacarpophalangeal joints are intact. Bony mineralization is normal. CONCLUSION: Mild soft tissue swelling with no acute fracture or malalignment. Eddy Faustin MD on August 16, 2017 at 16:09 Board Certified Radiologist. This report was verified electronically.
[2017-08-16 18:48] VITALS: BP 148/93; PULSE 100; RESP 17; TEMP 98.6; O2SAT 97
[2017-08-16] MEDS: NICOTINE 7 MG/24 HR PATCH T-DERMAL PRN (20:01)
[2017-08-16] MEDS: risperiDONE ODT 1 MG TAB PO SCH (21:00)
[2017-08-16] MEDS: OLANZapine ODT 20 MG TAB PO SCH (21:00)
[2017-08-17 06:05] VITALS: BP 114/62; PULSE 18; RESP 18; TEMP 97.6; O2SAT 97
[2017-08-17] MEDS: risperiDONE ODT 1 MG TAB PO SCH ×2 (09:00→20:24)
[2017-08-17] MEDS: CHOLECALCIFEROL (VIT D3) 1000 UNIT TAB PO SCH (09:00)
--- NOTE | 2017-08-17 09:15 | HHI.PYPN ---
Subjective Chief Complaint: Psychosis Remarks Patient seen and examined. Chart reviewed. Case discussed with nursing staff. On my examination today, we process patient's agitated outburst yesterday. Patient tells me "everyone has a breaking point. Everybody wants to go home, be normal, take vitamins." Thought process circumstantial, but perseveration on discharge remains. He makes bizarre statements at times. Slept better overnight by his report. Denies SI/HI. Denies AVH but remains internally stimulated. Denies side effects from medications. No physical complaints. Received a call from the nurse in the afternoon that the patient was growing agitated again, pushing chairs, pounding on the table. I have ordered him medicated with Geodon 10 mg IM ETO and his available Ativan p.r.n.. Review of Systems ROS Limitations: Psychotic, Poor Historian Except as stated in HPI: all other systems reviewed are Neg Mental Status Examination Appearance: Other (fair grooming) Consciousness: Alert Orientation: Person, Place (at least) Motor Activity: Normal gait, Other (no hand tremor, no cogwheeling, no hypomimia noted.) Speech: Unremarkable Language: Other (a little more organized today) Fund of Knowledge: Adequate Attention and Concentration: Easily Distracted Memory: Impaired (fair) Mood: Other (calm) Affect: Blunt Thought Process & Associations: Circumstantial Thought Content: Bizarre thinking, Hallucinations Hallucination Type: Other (internally preoccupied) Delusion Type: None Suicidal Ideation: No Suicidal Plan: No Suicidal Intention: No Homicidal Ideation: No Homicidal Plan: No Homicidal Intention: No Insight: Poor Judgment: Poor Results Labs Labs reviewed. No new labs. Vitals/IOs Vital Signs Date Time Temp Pulse Resp B/P (MAP) Pulse Ox O2 Delivery O2 Flow Rate FiO2 08/17/17 06:05 97.6 18 -1-8-In error. Actually 75/min. 114/62 (07) 97 Assessment & Plan Problem List: (1) Schizophreniform disorder ICD Codes: F20.81 - Schizophreniform disorder Assessment & Plan Continue cross taper from Zyprexa to Risperdal. In light of agitation today, I will go ahead and titrate the Risperdal to 2 mg twice daily while leaving the Zyprexa 20 mg as ordered. In subsequent days we will plan to taper the Zyprexa and continue to titrate the Risperdal to effect. I would like to transfer the patient to the lower acuity unit for some increased socialization, but ongoing behavioral disturbance makes this impossible presently. Continue to monitor on the high acuity unit. Continue other medications and care as ordered. Justification for Cont. Inpt. Impairment in reality construction. Medication changes. High risk for decompensation and less restrictive environment. Discharge Planning Pending psychiatric stabilization Request HC Surrog/Guard Advoc?: Yes Walt Caldwell MD Aug 17, 2017 09:15
[2017-08-17] MEDS: LORazepam 2 MG/ML VIAL IM PRN ×2 (09:27→15:46)
[2017-08-17] MEDS ORDERED: ZIPRASIDONE MESYLATE 20 MG VIAL IM ONE (15:23)
[2017-08-17] MEDS: OLANZapine ODT 20 MG TAB PO SCH (20:24)
[2017-08-17] MEDS: ACETAMINOPHEN 325 MG TAB PO PRN (21:15)
[2017-08-17] MEDS: LORazepam 1 MG TAB PO PRN (21:15)
[2017-08-18] MEDS: CHOLECALCIFEROL (VIT D3) 1000 UNIT TAB PO SCH (09:01)
[2017-08-18] MEDS: risperiDONE ODT 1 MG TAB PO SCH ×2 (09:02→20:36)
--- NOTE | 2017-08-18 10:39 | HHI.PYPN ---
Subjective Chief Complaint: Psychosis Remarks Patient seen and examined. Chart reviewed. Case discussed with nursing staff. No further behavioral outbursts since yesterday afternoon. On my examination today, patient is superficial and making a concerted effort to 'play good.' He remains internally preoccupied, but his thought process is perhaps a little more linear today and he is somewhat more relevant in conversation. He remains quite discharge focused and tries to pin me down on a discharge date. He denies side effects from medications and says that the Risperdal "makes me feel younger." No physical complaints. I did try to reach patient's mother/HCS. Left generic voicemail requesting call back. Review of Systems ROS Limitations: Psychotic, Poor Historian Except as stated in HPI: all other systems reviewed are Neg Mental Status Examination Appearance: Other (fair grooming) Consciousness: Alert Orientation: Person, Place Motor Activity: Normal gait, Other (No motor abnormalities noted.) Speech: Unremarkable Language: Other (perhaps a little more organized today) Fund of Knowledge: Adequate Attention and Concentration: Easily Distracted Memory: Impaired (fair) Mood: Other (calm) Affect: Other (a little more reactive. Oddly related.) Thought Process & Associations: Circumstantial Thought Content: Bizarre thinking Hallucination Type: Other (remains internally stimulated) Delusion Type: None Suicidal Ideation: No Suicidal Plan: No Suicidal Intention: No Homicidal Ideation: No Homicidal Plan: No Homicidal Intention: No Insight: Poor Judgment: Poor Results Labs Labs reviewed. No new labs. Vitals/IOs Vital Signs Date Time Temp Pulse Resp B/P (MAP) Pulse Ox O2 Delivery O2 Flow Rate FiO2 08/17/17 06:05 97.6 18 114/62 (79) 97 Assessment & Plan Problem List: (1) Schizophreniform disorder ICD Codes: F20.81 - Schizophreniform disorder Assessment & Plan Continue cross-taper from Zyprexa to Risperdal. Target dose of Risperdal is 3mg BID but could consider 4mg BID if needed. To consider long-acting injectable Sustenna or Consta if oral Risperdal proves efficacious for patient' s psychosis. Continue to monitor on the high acuity unit for now, although if the patient can remain in good behavioral control for an extended period, I would like to try to transfer him to the lower acuity unit. Continue other medications and care as ordered. Justification for Cont. Inpt. Medication changes. Impairment in reality construction. High risk for decompensation in less restrictive environment. Discharge Planning Pending psychiatric stabilization. Request HC Surrog/Guard Advoc?: Yes Walt Caldwell MD Aug 18, 2017 10:39
[2017-08-18 18:17] VITALS: BP 138/75; PULSE 106; RESP 18; TEMP 99.8; O2SAT 98
[2017-08-18] MEDS: OLANZapine ODT 5 MG TAB PO SCH (20:35)
[2017-08-18] MEDS: LORazepam 2 MG/ML VIAL IM PRN (20:36)
[2017-08-19 06:24] VITALS: BP 127/63; PULSE 62; RESP 16; TEMP 98.5; O2SAT 98
[2017-08-19] MEDS: CHOLECALCIFEROL (VIT D3) 1000 UNIT TAB PO SCH (09:00)
[2017-08-19] MEDS: risperiDONE ODT 1 MG TAB PO SCH ×2 (09:00→20:55)
[2017-08-19] MEDS ORDERED: HALOPERIDOL LACTATE 5 MG/ML AMP ONE (14:05)
[2017-08-19] MEDS ORDERED: diphenhydrAMINE HCL 50 MG/ML VIAL ONE (14:06)
[2017-08-19] MEDS ORDERED: HALOPERIDOL LACTATE 5 MG/ML AMP IM STA (14:21)
[2017-08-19] MEDS ORDERED: diphenhydrAMINE HCL 50 MG/ML VIAL IM STA (14:22)
[2017-08-19] MEDS ORDERED: LORazepam 2 MG/ML VIAL IM STA (14:22)
--- NOTE | 2017-08-19 16:06 | HHI.PYPN ---
Subjective Chief Complaint: Psychosis Remarks Reviewed electronic medical record, labs, and discussed case with staff. Follow -up conducted in patient's room with nurse present. Nursing staff reports yesterday while on visitation, patient got outside and climbed the back of the basketball net and refused to come down for a period of time. Patient denied visitation today due to his behaviors of yesterday. At this point he claims that he had "amnesia probably from my medicine". His amnesia appears to be selective as he has not forgotten that he is not allowed to have visitation today, and remembers that an incident did occur yesterday. Patient continues to appear internally stimulated. Mental Status Examination Appearance: Appropriate, Other (fair grooming) Consciousness: Alert Orientation: Person, Place Motor Activity: Normal gait, Other (No motor abnormalities noted.) Speech: Unremarkable Language: Other (perhaps a little more organized today) Fund of Knowledge: Adequate Attention and Concentration: Easily Distracted Memory: Impaired (fair) Mood: Anxious Affect: Anxious (Relative to his loss of visitation) Thought Process & Associations: Circumstantial Thought Content: Bizarre thinking Hallucination Type: Other (remains internally stimulated) Delusion Type: None Suicidal Ideation: No Suicidal Plan: No Suicidal Intention: No Homicidal Ideation: No Homicidal Plan: No Homicidal Intention: No Insight: Poor Judgment: Poor Results Vitals/IOs Vital Signs Date Time Temp Pulse Resp B/P (MAP) Pulse Ox O2 Delivery O2 Flow Rate FiO2 08/19/17 06:24 98.5 62 16 127/63 (84) 98 Assessment & Plan Problem List: (1) Schizophreniform disorder ICD Codes: F20.81 - Schizophreniform disorder Assessment & Plan Estimated LOS: Continue with treatment plan until psychiatrically stabilized. Justification for Cont. Inpt. Removing this patient to a lower level of care at this time would likely result in decompensation. Request HC Surrog/Guard Advoc?: Yes Talisha Baum Aug 19, 2017 16:06
[2017-08-19 17:07] VITALS: BP 138/70; PULSE 94; RESP 18; TEMP 97.8; O2SAT 98
[2017-08-19] MEDS: OLANZapine ODT 5 MG TAB PO SCH (20:53)
[2017-08-20 06:00] VITALS: BP 108/52; PULSE 89; RESP 16; TEMP 98.1; O2SAT 99
[2017-08-20] MEDS: CHOLECALCIFEROL (VIT D3) 1000 UNIT TAB PO SCH (08:02)
[2017-08-20] MEDS: risperiDONE ODT 1 MG TAB PO SCH ×2 (08:03→20:26)
[2017-08-20] MEDS: LORazepam 1 MG TAB PO PRN ×2 (08:03→20:26)
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
--- NOTE | 2017-08-20 16:09 | HHI.PYPN ---
Subjective Chief Complaint: Psychosis Remarks Patient was seen and case discussed with nursing. Patient had an aggressive episode yesterday where he threw a chair and hurt his hand. X-rays negative. Today he has not had any aggressive or agitated behavior. Had a productive with his his mom. There appears to be some thought blocking and has word finding difficulty. Denies auditory visual hallucinations. Denies suicidal or homicidal ideation intent or plan. Mental Status Examination Appearance: Appropriate, Other (fair grooming) Consciousness: Alert Orientation: Person, Place Motor Activity: Normal gait, Other (No motor abnormalities noted.) Speech: Unremarkable Language: Other (perhaps a little more organized today) Fund of Knowledge: Adequate Attention and Concentration: Easily Distracted Memory: Impaired (fair) Mood: Anxious Affect: Anxious (Relative to his loss of visitation) Thought Process & Associations: Circumstantial Thought Content: Bizarre thinking Hallucination Type: Other (remains internally stimulated) Delusion Type: None Suicidal Ideation: No Suicidal Plan: No Suicidal Intention: No Homicidal Ideation: No Homicidal Plan: No Homicidal Intention: No Insight: Poor Judgment: Poor Results Vitals/IOs Vital Signs Date Time Temp Pulse Resp B/P (MAP) Pulse Ox O2 Delivery O2 Flow Rate FiO2 08/20/17 06:00 98.1 89 16 108/52 (70) 99 Assessment & Plan Problem List: (1) Schizophreniform disorder ICD Codes: F20.81 - Schizophreniform disorder Assessment & Plan Continue current treatment plan Justification for Cont. Inpt. Patient will decompensate in a less restrictive setting Request HC Surrog/Guard Advoc?: Yes Bunny Bellamy DO Aug 20, 2017 16:09
[2017-08-20 18:42] VITALS: BP 144/78; PULSE 104; RESP 18; TEMP 98.2; O2SAT 98
[2017-08-20] MEDS: OLANZapine ODT 5 MG TAB PO SCH (20:26)
[2017-08-20 22:40] VITALS: BP 123/55; PULSE 92; RESP 17; TEMP 100; O2SAT 96
[2017-08-21 06:21] VITALS: BP 109/61; PULSE 75; RESP 17; TEMP 98.1; O2SAT 97
[2017-08-21] MEDS: risperiDONE ODT 1 MG TAB PO SCH ×2 (08:56→20:07)
[2017-08-21] MEDS: CHOLECALCIFEROL (VIT D3) 1000 UNIT TAB PO SCH (08:56)
[2017-08-21] MEDS: LORazepam 1 MG TAB PO PRN ×2 (08:59→15:32)
--- NOTE | 2017-08-21 13:26 | HHI.PYPN ---
Subjective Chief Complaint: Psychosis Remarks Patient was seen and case discussed with nursing. Patient tried to hide a cigarette earlier today. Remains fixated on discharge. Thought process is logical and organized. No delusions were elicited. His compliant with his medications and tolerating it well. Social with others on the unit Mental Status Examination Appearance: Appropriate, Other (fair grooming) Consciousness: Alert Orientation: Person, Place Motor Activity: Normal gait, Other (No motor abnormalities noted.) Speech: Unremarkable Language: Other (perhaps a little more organized today) Fund of Knowledge: Adequate Attention and Concentration: Easily Distracted Memory: Impaired (fair) Mood: Anxious Affect: Anxious (Relative to his loss of visitation) Thought Process & Associations: Circumstantial Thought Content: Appropriate Hallucination Type: Other (remains internally stimulated) Delusion Type: None Suicidal Ideation: No Suicidal Plan: No Suicidal Intention: No Homicidal Ideation: No Homicidal Plan: No Homicidal Intention: No Insight: Poor Judgment: Poor Results Vitals/IOs Vital Signs Date Time Temp Pulse Resp B/P (MAP) Pulse Ox O2 Delivery O2 Flow Rate FiO2 08/21/17 06:21 98.1 75 17 109/61 (77) 97 Assessment & Plan Problem List: (1) Schizophreniform disorder ICD Codes: F20.81 - Schizophreniform disorder Assessment & Plan Continue current treatment plan Justification for Cont. Inpt. Patient would decompensate in a less restrictive setting Request HC Surrog/Guard Advoc?: Yes Bunny Bellamy DO Aug 21, 2017 13:26
[2017-08-21] MEDS: NICOTINE 7 MG/24 HR PATCH T-DERMAL PRN (17:17)
[2017-08-21 18:27] VITALS: BP 147/68; PULSE 107; RESP 17; TEMP 98.7; O2SAT 97
[2017-08-22 06:36] VITALS: BP 101/56; PULSE 79; RESP 18; TEMP 99.1; O2SAT 98
[2017-08-22] MEDS: risperiDONE ODT 1 MG TAB PO SCH ×2 (09:00→21:00)
[2017-08-22] MEDS: CHOLECALCIFEROL (VIT D3) 1000 UNIT TAB PO SCH (09:22)
--- NOTE | 2017-08-22 11:58 | HHI.PYPN ---
Subjective Chief Complaint: Psychosis Remarks Patient seen and examined with nurse. Chart reviewed. Case discussed with nursing staff. Case discussed with counselor. On my examination today, the patient is more relevant in conversation versus before the weekend although he does make odd statements at times. He says that he is only "taking vitamins" in the hospital and needs to be on psychiatric medications as prescribed to him by his psychiatrist on an outpatient basis. He has been accepting his Risperdal. Patient remains quite discharge focused and says "I discharged myself on Tuesday at 2 PM, it should go through today." Denies any SI or HI. Denies AVH. Denies side effects from medications besides feeling "antsy." No physical complaints. Spoke with patient's mother over the phone. She feels that the patient is a lot clearer with the Risperdal. She notes that he has been making some suicidal statements to her over the phone, but she suspects these are manipulative in an attempt to get her to insist upon his discharge. She does not verbalize any concern that the patient is genuinely suicidal. We discussed treatment plan going forward. She remains in agreement with the plan. Review of Systems ROS Limitations: Psychotic, Poor Historian Except as stated in HPI: all other systems reviewed are Neg Mental Status Examination Appearance: Appropriate, Other (fair grooming) Consciousness: Alert Orientation: Person, Place (at least) Motor Activity: Normal gait, Other (some mild cogwheeling more prominent in the left. No other motor abnormalities noted. No objective restlessness or akathisia.) Speech: Unremarkable Language: Adequate Fund of Knowledge: Adequate Attention and Concentration: Easily Distracted Memory: Unremarkable Mood: Anxious Affect: Anxious Thought Process & Associations: Circumstantial Thought Content: Other (discharge focused) Hallucination Type: None (denies AVH) Delusion Type: None Suicidal Ideation: No Suicidal Plan: No Suicidal Intention: No Homicidal Ideation: No Homicidal Plan: No Homicidal Intention: No Insight: Poor Judgment: Poor Results Labs Labs reviewed. Vitals/IOs Vital Signs Date Time Temp Pulse Resp B/P (MAP) Pulse Ox O2 Delivery O2 Flow Rate FiO2 08/22/17 06:36 99.1 79 18 101/56 (72) 98 Assessment & Plan Problem List: (1) Schizophreniform disorder ICD Codes: F20.81 - Schizophreniform disorder Assessment & Plan Continue Risperdal as ordered. We might consider titrating to 4 mg twice a day or augmenting with a different antipsychotic or replacing the Risperdal with a different antipsychotic depending on response to current dose. I will add Cogentin for management of possible EPS. Continue to monitor on the inpatient unit. Continue other medications include care as ordered. Justification for Cont. Inpt. Med changes. Impairment in reality construction. Risk for decompensation and less restrictive environment. Discharge Planning Pending psychiatric stabilization. Request HC Surrog/Guard Advoc?: Yes Walt Caldwell MD Aug 22, 2017 11:58
[2017-08-22] MEDS: BENZTROPINE MESYLATE 1 MG TAB PO SCH ×2 (13:13→21:00)
[2017-08-22 17:03] VITALS: BP 143/70; PULSE 91; RESP 18; TEMP 97.3; O2SAT 100
[2017-08-23 06:28] VITALS: BP 116/56; PULSE 64; RESP 18; TEMP 97.7; O2SAT 99
[2017-08-23] MEDS: CHOLECALCIFEROL (VIT D3) 1000 UNIT TAB PO SCH ×2 (08:21→09:00)
[2017-08-23] MEDS: LORazepam 2 MG/ML VIAL IM PRN ×2 (08:23→09:00)
[2017-08-23] MEDS: ACETAMINOPHEN 325 MG TAB PO PRN (08:31)
[2017-08-23] MEDS: BENZTROPINE MESYLATE 1 MG TAB PO SCH ×2 (09:00→20:33)
[2017-08-23] MEDS: risperiDONE ODT 1 MG TAB PO SCH (09:00)
[2017-08-23] MEDS ORDERED: diphenhydrAMINE HCL 50 MG/ML VIAL IM STA (09:57)
[2017-08-23] MEDS ORDERED: ZIPRASIDONE MESYLATE 20 MG VIAL IM STA (09:57)
--- NOTE | 2017-08-23 10:30 | HHI.PYPN ---
Subjective Chief Complaint: Psychosis Remarks Patient seen and examined with nurse. Chart reviewed. Case discussed with nursing staff. Case discussed in treatment team. On my examination today, the patient remains delusional. He is responding to internal stimuli. He is perseverative today on his chronic back pain. He insists that he "faked schizophrenia to get my back pain treated." When I inquire about the patient's reported suicidal statements to mother, he says "I just want to pass away because of the back pain." Multiple lines of inquiry lead back to the patient' s complaints of back pain, and this does seem to have a psychotic basis, although he does have underlying chronic back pain issues. No side effects from medications. No physical complaints. Following examination, the patient is noted to be on the telephone when he begins banging his head hard on the wall over the phone. Staff redirect him, although he remains quite agitated. I ordered patient medicated with Geodon and Benadryl ETO. I have ordered Head CT once calm although there is no overt evidence of trauma. Discussed case with mother/GA over the phone. Given ongoing psychotic symptoms despite multiple atypical antipsychotic trials, we discuss trial of a typical versus clozapine. We settle on a trial of Prolixin. Review of Systems ROS Limitations: Psychotic, Poor Historian Except as stated in HPI: all other systems reviewed are Neg Mental Status Examination Appearance: Appropriate Consciousness: Alert Orientation: Person, Place (at least) Motor Activity: Normal gait, Other (no motor abnormalities noted.) Speech: Unremarkable Language: Adequate Fund of Knowledge: Adequate Attention and Concentration: Easily Distracted Memory: Unremarkable Mood: Anxious Affect: Anxious Thought Process & Associations: Circumstantial (at times tangential) Thought Content: Other (remains perseverative on discharge) Hallucination Type: Other (internally stimulated) Delusion Type: Bizarre Suicidal Ideation: No Suicidal Plan: No Suicidal Intention: No Homicidal Ideation: No Homicidal Plan: No Homicidal Intention: No Insight: Poor Judgment: Poor Results Labs Labs reviewed. Vitals/IOs Vital Signs Date Time Temp Pulse Resp B/P (MAP) Pulse Ox O2 Delivery O2 Flow Rate FiO2 08/23/17 06:28 97.7 64 18 116/56 (11) 99 Assessment & Plan Problem List: (1) Schizophreniform disorder ICD Codes: F20.81 - Schizophreniform disorder Assessment & Plan Discontinue Risperdal and initiate Prolixin 5 mg twice daily with plans to titrate to effect. To consider Prolixin Decanoate. Follow-up head CT results. Lidoderm patch for back pain. Consult hospitalist for back pain. Continue to monitor on high acuity unit. A low threshold for one-to-one if behavioral disturbance persists. Continue other medications and care as ordered. Justification for Cont. Inpt. Impairment and safety. Impairment in reality construction. High risk for decompensation in less restrictive environment. Discharge Planning Pending psychiatric stabilization. Request HC Surrog/Guard Advoc?: Yes Walt Caldwell MD Aug 23, 2017 10:30
[2017-08-23] MEDS: LIDOCAINE HCL 5% PATCH T-DERMAL SCH (13:45)
--- NOTE | 2017-08-23 14:20 | PD.CONS ---
HPI Service [facility] Hospitalists Consult Requested By Psychiatry Reason for Consult No back pain Primary Care Physician Unknown Diagnoses: History of Present Illness Mr. Keys is a 22-year-old male with no significant medical history who was admitted to the psychiatric unit under a Guerrier act from [facility]. He was brought to [facility] apparently after he was found wandering in traffic. Patient has a history of schizophrenia and apparently he is noncompliant with medications. Hospitalist service was consulted on 08/23/2017 due to patient's complaints of back pain. At the time of this interview, patient is ambulating well without any difficulty. He has significant disorganized thoughts. He reports that he came to the hospital to use the hospital bed which helps him with his back pain. When asked to be specific, he reports back pain from neck to waist all over. He also reports a generalized feeling of irritation all over his body. He compares this feeling to wearing a back shard that irritates his skin. He has no chest pain, shortness of breath, cough, abdominal pain, fever or chills. Review of Systems ROS Limitations: Clinical Condition, Altered Mental Status, Psychotic Except as stated in HPI: all other systems reviewed are Neg Past Family Social History Allergies: Coded Allergies: No Known Allergies (Unverified Adverse Reaction, Unknown, 08/07/17) Past Medical History No medical history Past Surgical History No surgeries in the past Reported Medications Current Medications Medications (Trade) Dose Ordered Sig/Areli Route Start Time Stop Time Status Last Admin (Ativan) 1 mg Q6H PRN PO 08/08/17 09:30 08/23/17 16:20 (Ativan Inj) 1 mg Q6H PRN IM 08/08/17 09:30 08/23/17 09:00 (Tylenol) 650 mg Q4H PRN PO 08/08/17 09:30 08/23/17 08:31 (Milk Of Magnesia Liq) 30 ml DAILY PRN PO 08/08/17 09:30 (Mag-Al Plus Susp Liq) 30 ml Q6H PRN PO 08/08/17 09:30 (Cogentin) 1 mg Q12HR PRN PO 08/09/17 10:45 08/10/17 08:23 (Cogentin Inj) 1 mg Q12HR PRN IM 08/09/17 10:45 (Vitamin D3) 1,000 units DAILY PO 08/10/17 09:00 08/23/17 09:00 (Habitrol 7 Mg Patch.24 Hr) 1 patch DAILY PRN T-DERMAL 08/10/17 16:00 08/21/17 17:17 (Cogentin) 1 mg Q12HR PO 08/22/17 12:00 08/23/17 09:00 (Lidoderm 5% Patch.12 Hr) 1 patch DAILY T-DERMAL 08/23/17 13:45 08/23/17 13:45 Miscellaneous Information 1 Q24H T-DERMAL 08/23/17 21:00 (Prolixin) 5 mg Q12HR PO 08/23/17 21:00 Family History No family history of any medical conditions. Social History Patient smokes about 1 pack a day. Denies using alcohol or illicit drugs. Physical Exam Vital Signs Vital Signs Date Time Temp Pulse Resp B/P (MAP) Pulse Ox O2 Delivery O2 Flow Rate FiO2 08/23/17 06:28 97.7 64 18 116/56 (76) 99 08/22/17 17:03 97.3 91 18 143/70 (94) 100 Physical Exam GENERAL: This is a well-nourished, well-developed patient, in no apparent distress. SKIN: No rashes, ecchymoses or lesions. Warm and dry. HEAD: Atraumatic. Normocephalic. No temporal or scalp tenderness. EYES: Pupils equal round and reactive. No injection or drainage. ENT: Nose without bleeding, purulent drainage or septal hematoma. Airway patent. NECK: Trachea midline. No lymphadenopathy. Supple, nontender, no meningeal signs. CARDIOVASCULAR: Regular rate and rhythm without murmurs, gallops, or rubs. No JVD. RESPIRATORY: Clear to auscultation. Breath sounds equal bilaterally. No wheezes , rales, or rhonchi. GASTROINTESTINAL: Abdomen soft, non-tender, nondistended. No guarding. MUSCULOSKELETAL: Extremities without clubbing, cyanosis, or edema. Good range of motion. No tenderness on palpation over his lower back. NEUROLOGICAL: Awake and alert. Cranial nerves II through XII intact. No focal neurological deficits. Normal speech. Imaging Last Impressions Head CT 08/23/17 0000 Signed Impressions: Service Date/Time: Wednesday, August 23, 2017 14:31 - CONCLUSION: Normal examination for a patient of this age. No significant change has occurred. Tay Salcido MD Hand X-Ray 08/19/17 0000 Signed Impressions: Service Date/Time: Sunday, August 20, 2017 09:19 - CONCLUSION: Unremarkable limited examination of the right hand. Dennis Alva MD Ankle X-Ray 08/11/17 0000 Signed Impressions: Service Date/Time: July 13:40 - CONCLUSION: No evidence of recent bony injury. Feng Del Castillo MD Assessment and Plan Problem List: (1) Schizophreniform disorder ICD Code: F20.81 - Schizophreniform disorder Assessment and Plan Mr. Keys is a 22-year-old male with no significant medical history and with a history of schizophrenia who was admitted to the hospital under Guerrier act after he was found wandering around in traffic. Hospitalist service was consulted for low back pain. -Schizophrenia -management per psychiatry. -Back pain -Patient is ambulating normally. No limitation on range of motion. -His complaints are very nonspecific. He mentions back pain from neck to waist. Then he also emphasizes on whole-body irritation. -At this point, I would not recommend any imaging studies to evaluate back pain. -As needed naproxen 375 mg every 8 hours for back pain would be reasonable. -Reviewed CT head. Unremarkable findings. Full code. Ambulation. Thank you for the consult. We will sign off. Please contact us with any questions. Belia Clemente DO Aug 23, 2017 14:20
--- NOTE | 2017-08-23 14:45 | RADRPT ---
EXAM DATE/TIME: 08/23/2017 14:31 [place] COMPARISON: CT BRAIN W/O CONTRAST, August 05, 2017, 14:09. INDICATIONS : Trauma to head RADIATION DOSE: 35.71 CTDIvol (mGy) MEDICAL HISTORY : None SURGICAL HISTORY : None. ENCOUNTER: Initial ACUITY: 1 day PAIN SCALE: 3/10 LOCATION: cranial TECHNIQUE: Multiple contiguous axial images were obtained of the head. Using automated exposure control and adj ustment of the mA and/or kV according to patient size, radiation dose was kept as low as reasonably a chievable to obtain optimal diagnostic quality images. DICOM format image data is available electro nically for review and comparison. FINDINGS: CEREBRUM: The ventricles are normal for age. No evidence of midline shift, mass lesion, hemorrhage or acute in farction. No extra-axial fluid collections are seen. POSTERIOR FOSSA: The cerebellum and brainstem are intact. The 4th ventricle is midline. The cerebellopontine angle i s unremarkable. EXTRACRANIAL: The visualized portion of the orbits is intact. SKULL: The calvaria is intact. No evidence of skull fracture. CONCLUSION: Normal examination for a patient of this age. No significant change has occurred. Tay Salcido MD on August 23, 2017 at 14:42 Board Certified Radiologist. This report was verified electronically.
[2017-08-23] MEDS: LORazepam 1 MG TAB PO PRN (16:20)
[2017-08-23 18:13] VITALS: BP 110/60; PULSE 72; RESP 19; TEMP 97.9; O2SAT 98
[2017-08-23] MEDS: REMOVE OLD LIDOCAINE PATCH T-DERMAL SCH (21:00)
[2017-08-24 05:41] VITALS: BP 101/46; PULSE 62; RESP 18; TEMP 97.8
[2017-08-24] MEDS: LORazepam 1 MG TAB PO PRN ×2 (08:10→14:12)
[2017-08-24] MEDS: CHOLECALCIFEROL (VIT D3) 1000 UNIT TAB PO SCH (08:11)
[2017-08-24] MEDS: BENZTROPINE MESYLATE 1 MG TAB PO PRN (08:11)
[2017-08-24] MEDS: LIDOCAINE HCL 5% PATCH T-DERMAL SCH ×2 (09:00→14:36)
[2017-08-24] MEDS: BENZTROPINE MESYLATE 1 MG TAB PO SCH ×2 (09:00→21:21)
--- NOTE | 2017-08-24 10:18 | HHI.PYPN ---
Subjective Chief Complaint: Psychosis Remarks Patient seen and examined with nurse. Chart reviewed. Case discussed with nursing staff. Patient reportedly slept overnight and has been no behavioral problem. He is reportedly cooperative this morning. On my examination today, the patient tells me "I'm feeling perfect. This is the first day I'm feeling perfect." He says that the Prolixin is making him feel "clear minded, my thoughts aren't scrumped up (sic)." He continues in a somewhat dramatic fashion to endorse suicidal ideation noting "I feel like I should if I have to stay here." He remains quite discharge focused. I have reminded the patient of his right to file a writ of Simple[employer] corpus, should he feel this is warranted. He is internally stimulated. No side effects from medications. No physical complaints. Review of Systems ROS Limitations: Psychotic, Poor Historian Except as stated in HPI: all other systems reviewed are Neg Mental Status Examination Appearance: Appropriate Consciousness: Alert Orientation: Person, Place (at least) Motor Activity: Normal gait, Other (no hand tremor, no cogwheeling, no dystonia , no dyskinesia) Speech: Unremarkable Language: Adequate Fund of Knowledge: Adequate Attention and Concentration: Easily Distracted Memory: Unremarkable Mood: Other (calm) Affect: Blunt Thought Process & Associations: Circumstantial Thought Content: Other (perseverative on discharge) Hallucination Type: Other (internally preoccupied) Delusion Type: Bizarre Suicidal Ideation: Yes Suicidal Plan: No Suicidal Intention: No (no reported urge to hurt himself on the inpatient unit) Homicidal Ideation: No Homicidal Plan: No Homicidal Intention: No Insight: Poor Judgment: Poor Results Labs Labs reviewed. No new labs. 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 To consider long-acting injectable Prolixin Decanoate. Continue to monitor on high acuity unit. Hospitalist input noted and appreciated. Continue other medications and care as ordered. Justification for Cont. Inpt. Med changes. Impairment in reality construction. High risk for decompensation and less restrictive environment. Discharge Planning Pending psychiatric stabilization Request HC Surrog/Guard Advoc?: Yes Walt Caldwell MD Aug 24, 2017 10:18
[2017-08-24] MEDS: ACETAMINOPHEN 325 MG TAB PO PRN ×2 (10:39→15:06)
[2017-08-24 17:10] VITALS: BP 130/60; PULSE 71; RESP 18; TEMP 97.8; O2SAT 100
[2017-08-24] MEDS: REMOVE OLD LIDOCAINE PATCH T-DERMAL SCH (21:00)
[2017-08-25] MEDS: NAPROXEN 375 MG TAB PO PRN (03:08)
[2017-08-25 06:09] VITALS: BP 102/58; PULSE 68; RESP 17; TEMP 97.8; O2SAT 98
[2017-08-25] MEDS: LORazepam 1 MG TAB PO PRN ×2 (08:35→15:16)
[2017-08-25] MEDS: BENZTROPINE MESYLATE 1 MG TAB PO SCH ×2 (08:35→20:54)
[2017-08-25] MEDS: CHOLECALCIFEROL (VIT D3) 1000 UNIT TAB PO SCH (08:35)
[2017-08-25] MEDS: LIDOCAINE HCL 5% PATCH T-DERMAL SCH (09:00)
[2017-08-25] MEDS: ACETAMINOPHEN 325 MG TAB PO PRN ×3 (10:30→17:14)
--- NOTE | 2017-08-25 11:32 | HHI.PYPN ---
Subjective Chief Complaint: Psychosis Remarks Patient seen and examined. Chart reviewed. Case discussed with nurse. Case discussed with counselor. No behavioral issues noted overnight. On my examination today, the patient is calm and cooperative. He is tolerating the free rec period well and interacting with peers and nursing students in a fairly appropriate fashion. Thought process more linear today. He continues to insist that he was discharged from the hospital last , but in context this seems more kaylee to wishful thinking than delusion. He remains a little internally preoccupied. Remains a little intrusive. We discuss transfer to lower acuity unit, and he is in agreement. No side effects from medications besides some subjective cognitive dulling that I cannot objectively appreciate in our interaction. If anything, he seems clearer thinking today. No physical complaints. Review of Systems ROS Limitations: Psychotic, Poor Historian Except as stated in HPI: all other systems reviewed are Neg Mental Status Examination Appearance: Appropriate Consciousness: Alert Orientation: Person, Place, Date/Time (approximate) Motor Activity: Normal gait, Other (no abnormal motor movements noted) Speech: Unremarkable Language: Adequate Fund of Knowledge: Adequate Attention and Concentration: Easily Distracted (attention seems to be improving ) Memory: Unremarkable Mood: Appropriate Affect: Blunt Thought Process & Associations: Circumstantial Thought Content: Other (more linear today) Hallucination Type: Other (less internally preoccupied) Delusion Type: None Suicidal Ideation: No Suicidal Plan: No Suicidal Intention: No (no reported urge to hurt himself on the inpatient unit) Homicidal Ideation: No Homicidal Plan: No Homicidal Intention: No Insight: Poor Judgment: Poor Results Labs Labs reviewed. 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 To consider further titration of this agent. To consider Prolixin Dec. Patient is now in better behavioral control; transfer to lower acuity unit. Continue other medications and care as ordered. Justification for Cont. Inpt. Resolving impairments in reality construction. High risk for decompensation in less restrictive environment. Discharge Planning Pending psychiatric stabilization Request HC Surrog/Guard Advoc?: Yes Walt Caldwell MD Aug 25, 2017 11:32
[2017-08-25 17:46] VITALS: BP 123/65; PULSE 70; RESP 16; TEMP 97.8; O2SAT 99
[2017-08-25] MEDS: REMOVE OLD LIDOCAINE PATCH T-DERMAL SCH (20:54)
[2017-08-26 05:17] VITALS: BP 105/56; PULSE 72; RESP 16; TEMP 97.7; O2SAT 96
[2017-08-26] MEDS: LORazepam 1 MG TAB PO PRN ×3 (05:52→21:10)
[2017-08-26] MEDS: ACETAMINOPHEN 325 MG TAB PO PRN ×3 (05:56→16:38)
[2017-08-26] MEDS: BENZTROPINE MESYLATE 1 MG TAB PO SCH (09:00)
[2017-08-26] MEDS: CHOLECALCIFEROL (VIT D3) 1000 UNIT TAB PO SCH (09:14)
[2017-08-26] MEDS: LIDOCAINE HCL 5% PATCH T-DERMAL SCH (09:15)
--- NOTE | 2017-08-26 09:59 | PD.TTN ---
Patient Problems 1. Discharge planning 2. Medication compliance 3. Knowledge deficit 4. Lack of coping skills Progress Toward Goals Provider Present: Dr. Carlin Caldwell Provider Input: 08/16/2018; patient is responding slowing with medication, requires ongoing treatment 08/12/17 - Patient continues to meet criteria. Dr. Caldwell is titrating patient's Zyprexa. 08/09/2017; Patient is being assess for medical needs and medication adjustment will be made Nurse(s) Present: JOSE Richey Nurse(s) Input: 08/16/2017; patient required a recent ETO, noncompliant with treatment requires redirection; verbally aggressive and violient behavior Psychiatric Counselors Present: Tan Chun Jr., [facility], Damaris Resendez, [facility] , Savita Falcon, [facility] Psych Therapist Input: 08/16/2017; Encourage with meals, medication and behavior 08/12/17 - Patient required an ETO and restraints yesterday. He remains internally stimulated and impulsive. 08/09/2017: patient will be assess for discharge needs, placement, services and treatment Group Spec/RT/OT/FELIZ Present: MILENA Wyman, Praneeth Jasmine, OT, Antoni Osman, FELIZ Group Spec/RT/OT/FELIZ Input: 08/26/2017: Patient has been attending the sheduled group activities. Pt's mood appears calmer. Social with select peers. 08/16/2017; patient is discharged focus, unable to attend groups due to his behavior 08/12/17 - Patient required frequent redirection. 08/09/2017; patient will be given inpatient treatment information Discharge Plan [facility], Other 08/26/2017: Discharge in planning stages by Patients Counselor. 08/12/17 - Patient will be discharged home when deemed appropriate by Dr. Caldwell. Documentation Scribe: Susana Lino [facility] Date Resolved: Aug 12, 2017 Susana Lino Aug 26, 2017 09:59
--- NOTE | 2017-08-26 10:21 | HHI.PYPN ---
Subjective Chief Complaint: Psychosis Remarks Patient seen and examined. Chart reviewed. Case discussed with nursing staff. Patient has been able to maintain behavioral control on the lower acuity unit. Case discussed in treatment team. Recreation therapist notes that the patient is calmer and more redirectable in groups. On my examination today, the patient says that he is feeling "perfect" and says that the medications are "wonderful." He continues to insist that he "faked schizophrenia" to get help with his chronic back pain. His insight into his illness and need for treatment remain quite poor. I do attempt to provide psychoeducation in this regard, but patient remains insistent that he is "faking" his symptoms. He remains internally stimulated. No SI/HI. No side effects from medications. The patient has no physical complaints at the time of my evaluation, but shortly thereafter he complains to RN of sharp chest pain. It is worth noting that the patient does not appear to be in any physical distress and seems to forget about this complaint a short time later. I have nonetheless ordered EKG and CE x 1. Review of Systems ROS Limitations: Psychotic, Poor Historian Except as stated in HPI: all other systems reviewed are Neg Mental Status Examination Appearance: Appropriate Consciousness: Alert Orientation: Person, Place (at least) Motor Activity: Normal gait, Other (mild cogwheeling. No other motor abnormalities noted.) Speech: Unremarkable Language: Adequate Fund of Knowledge: Adequate Attention and Concentration: Easily Distracted (attention seems to be improving ) Memory: Unremarkable Mood: Appropriate Affect: Blunt Thought Process & Associations: Circumstantial Thought Content: Other (fairly linear) Hallucination Type: Other (somewhat int stim) Delusion Type: None Suicidal Ideation: No Suicidal Plan: No Suicidal Intention: No Homicidal Ideation: No Homicidal Plan: No Homicidal Intention: No Insight: Poor Judgment: Poor Results Labs Labs reviewed. CE negative. EKG reveals sinus rhythm. ST elevation likely direct customer service representative of early repolarization. QTc 382ms, not prolonged. 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 Plan remains for Prolixin Dec. Titrate Cogentin to 2mg BID for EPS. Consult the hospitalist for patient's complaints of chest pain. Continue to monitor on inpatient unit. Continue other meds and care as ordered. Justification for Cont. Inpt. Medication changes. Risk for decompensation in less restrictive environment. Discharge Planning Patient is improving overall. Possible discharge sometime next week. Request HC Surrog/Guard Advoc?: Yes Walt Caldwell MD Aug 26, 2017 10:21
[2017-08-26 12:14] LABS: TROPONIN I LESS THAN 0.02 NG/ML (0.02-0.05)
--- NOTE | 2017-08-26 17:28 | HHI.PR ---
Subjective Remarks We were re-consulted because patient complains of chest pain. He appears to be more alert and coherent today. He reports sharp point tenderness on his left chest. It feels as if a straw is pressing or knife is pressing but piercing through. No radiation of the pain. No nausea, vomiting, diaphoresis. No cough, fever, chills. Objective Vitals Vital Signs Date Time Temp Pulse Resp B/P (MAP) Pulse Ox O2 Delivery O2 Flow Rate FiO2 08/26/17 05:17 97.7 72 16 105/56 (72) 96 08/25/17 17:46 97.8 70 16 123/65 (84) 99 I/O 08/25/17 08/25/17 08/25/17 08/26/17 08/26/17 08/26/17 07:00 15:00 23:00 07:00 15:00 23:00 Intake Total 840 ml Balance 840 ml Intake Oral 840 ml Imaging Last Impressions Head CT 08/23/17 0000 Signed Impressions: Service Date/Time: Wednesday, August 23, 2017 14:31 - CONCLUSION: Normal examination for a patient of this age. No significant change has occurred. Tay Salcido MD Hand X-Ray 08/19/17 0000 Signed Impressions: Service Date/Time: Sunday, August 20, 2017 09:19 - CONCLUSION: Unremarkable limited examination of the right hand. Dennis Alva MD Ankle X-Ray 08/11/17 0000 Signed Impressions: Service Date/Time: July 13:40 - CONCLUSION: No evidence of recent bony injury. Feng Del Castillo MD Objective Remarks GENERAL: Alert, NAD. SKIN: Warm and dry. HEAD: Normocephalic. EYES: No scleral icterus. No injection or drainage. NECK: Supple, trachea midline. No JVD or lymphadenopathy. CARDIOVASCULAR: Regular rate and rhythm without murmurs, gallops, or rubs. RESPIRATORY: Breath sounds equal bilaterally. No accessory muscle use. GASTROINTESTINAL: Abdomen soft, non-tender, nondistended. MUSCULOSKELETAL: No cyanosis, or edema. Complains of point tenderness on palpation over his left upper chest. BACK: Nontender without obvious deformity. No CVA tenderness. A/P Problem List: (1) Schizophreniform disorder ICD Code: F20.81 - Schizophreniform disorder Assessment and Plan Mr. Keys is a 22-year-old male with no significant medical history and with a history of schizophrenia who was admitted to the hospital under [place] act after he was found wandering around in traffic. Hospitalist service was consulted for low back pain. -Schizophrenia -management per psychiatry. -Back pain -Patient is ambulating normally. No limitation on range of motion. -His complaints are very nonspecific. He mentions back pain from neck to waist. Then he also emphasizes on whole-body irritation. -At this point, I would not recommend any imaging studies to evaluate back pain. -As needed naproxen 375 mg every 8 hours. -Chest pain - Troponin is negative. Clinically very atypical. Likely musculoskeletal. I would recommend continue to use Naproxen PRN. -Reviewed CT head. Unremarkable findings. Full code. Ambulation. We will sign off. Patient can be discharged from medical standpoint. Thank you. Belia Clemente DO Aug 26, 2017 17:28
[2017-08-26 18:47] VITALS: BP 114/57; PULSE 72; RESP 18; TEMP 98.1; O2SAT 98
[2017-08-26] MEDS: REMOVE OLD LIDOCAINE PATCH T-DERMAL SCH (21:00)
[2017-08-26] MEDS: BENZTROPINE MESYLATE 2 MG TAB PO SCH (21:09)
[2017-08-27 06:00] VITALS: BP 106/53; PULSE 58; RESP 17; TEMP 97.9; O2SAT 99
[2017-08-27] MEDS: LIDOCAINE HCL 5% PATCH T-DERMAL SCH (07:53)
[2017-08-27] MEDS: CHOLECALCIFEROL (VIT D3) 1000 UNIT TAB PO SCH (07:54)
[2017-08-27] MEDS: LORazepam 1 MG TAB PO PRN ×3 (07:54→21:02)
[2017-08-27] MEDS: BENZTROPINE MESYLATE 2 MG TAB PO SCH ×2 (07:54→21:02)
[2017-08-27] MEDS: ACETAMINOPHEN 325 MG TAB PO PRN ×2 (07:55→14:50)
[2017-08-27] MEDS: NAPROXEN 375 MG TAB PO PRN (11:16)
--- NOTE | 2017-08-27 16:10 | HHI.PYPN ---
Subjective Chief Complaint: Psychosis Remarks Pt seen and discussed with staff. He remains disorganized and engages in odd behaviors but has improved per staff. He denies SI/HI. NO medication side effects. Mental Status Examination Appearance: Appropriate Consciousness: Alert Orientation: Person, Place Motor Activity: Normal gait, Other Speech: Unremarkable Language: Adequate Fund of Knowledge: Adequate Attention and Concentration: Easily Distracted (attention seems to be improving ) Memory: Unremarkable Mood: Other (elevated) Affect: Other (expansive) Thought Process & Associations: Circumstantial Thought Content: Bizarre thinking Hallucination Type: None, Other Delusion Type: Bizarre Suicidal Ideation: No Suicidal Plan: No Suicidal Intention: No Homicidal Ideation: No Homicidal Plan: No Homicidal Intention: No Insight: Poor Judgment: Poor Results Vitals/IOs Vital Signs Date Time Temp Pulse Resp B/P (MAP) Pulse Ox O2 Delivery O2 Flow Rate FiO2 08/27/17 06:00 97.9 58 17 106/53 (70) 99 Assessment & Plan Problem List: (1) 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 Estimated LOS: days Justification for Cont. Inpt. impairments in reality testing Request HC Surrog/Guard Advoc?: Yes Mabel Hayes MD Aug 27, 2017 16:10
[2017-08-27 18:08] VITALS: BP 113/66; PULSE 57; RESP 18; TEMP 97.5; O2SAT 100
[2017-08-27] MEDS: REMOVE OLD LIDOCAINE PATCH T-DERMAL SCH (21:00)
--- NOTE | 2017-08-27 23:26 | EKG ---
Date Performed: 08/26/2017 Time Performed: 10:38:45 PTAGE: 22 years EKG: Sinus rhythm ST ELEVATION, PROBABLY EARLY REPOLARIZATION TALL T-WAVES, SUGGESTS HYPERKALEMIA ABNORMAL ECG INTERPR ETATION BASED ON A DEFAULT AGE OF 40 YEARS PREVIOUS TRACING : 08/12/2017 18.10 Since the prior tracing, there has been no significan t change DOCTOR: Ricardo Lucero Interpretating Date/Time 08/27/2017 23:24:59
[2017-08-28 08:15] VITALS: BP 126/57; PULSE 74; RESP 16; TEMP 98; O2SAT 99
[2017-08-28] MEDS: CHOLECALCIFEROL (VIT D3) 1000 UNIT TAB PO SCH (08:17)
[2017-08-28] MEDS: BENZTROPINE MESYLATE 2 MG TAB PO SCH ×2 (08:17→21:05)
[2017-08-28] MEDS: NICOTINE 7 MG/24 HR PATCH T-DERMAL PRN (08:18)
[2017-08-28] MEDS: LIDOCAINE HCL 5% PATCH T-DERMAL SCH (08:19)
[2017-08-28] MEDS: ACETAMINOPHEN 325 MG TAB PO PRN ×2 (08:40→16:49)
[2017-08-28] MEDS: NAPROXEN 375 MG TAB PO PRN ×2 (11:50→21:05)
--- NOTE | 2017-08-28 15:28 | HHI.PYPN ---
Subjective Chief Complaint: Psychosis Remarks Pt seen and discussed with staff. He continues to engage in odd and disorganized behaviors. He has been showering compulsively per staff. He is compliant with medications. No SI/HI. Mental Status Examination Appearance: Appropriate Consciousness: Alert Orientation: Person, Place Motor Activity: Normal gait, Other Speech: Unremarkable Language: Adequate Fund of Knowledge: Adequate Attention and Concentration: Easily Distracted (attention seems to be improving ) Memory: Unremarkable Mood: Other (elevated) Affect: Other (expansive) Thought Process & Associations: Circumstantial Thought Content: Bizarre thinking Hallucination Type: None, Other Delusion Type: Bizarre Suicidal Ideation: No Suicidal Plan: No Suicidal Intention: No Homicidal Ideation: No Homicidal Plan: No Homicidal Intention: No Insight: Poor Judgment: Poor Results Vitals/IOs Vital Signs Date Time Temp Pulse Resp B/P (MAP) Pulse Ox O2 Delivery O2 Flow Rate FiO2 08/28/17 08:15 98.0 74 16 126/57 (80) 99 Assessment & Plan Problem List: (1) 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 Estimated LOS: days Justification for Cont. Inpt. impairments in reality testing Request HC Surrog/Guard Advoc?: Yes Mabel Hayes MD Aug 28, 2017 15:28
[2017-08-28] MEDS: LORazepam 1 MG TAB PO PRN ×2 (16:00→21:05)
[2017-08-28 17:03] VITALS: BP 126/61; PULSE 75; RESP 18; TEMP 98.2; O2SAT 99
[2017-08-28] MEDS: REMOVE OLD LIDOCAINE PATCH T-DERMAL SCH (21:00)
[2017-08-29 05:53] VITALS: BP 101/55; PULSE 53; RESP 18; TEMP 96.3; O2SAT 97
[2017-08-29] MEDS: LIDOCAINE HCL 5% PATCH T-DERMAL SCH (09:04)
[2017-08-29] MEDS: NICOTINE 7 MG/24 HR PATCH T-DERMAL PRN (09:04)
[2017-08-29] MEDS: CHOLECALCIFEROL (VIT D3) 1000 UNIT TAB PO SCH (09:04)
[2017-08-29] MEDS: BENZTROPINE MESYLATE 2 MG TAB PO SCH ×2 (09:04→20:40)
[2017-08-29] MEDS: LORazepam 1 MG TAB PO PRN ×2 (09:04→15:14)
[2017-08-29] MEDS: NAPROXEN 375 MG TAB PO PRN (09:05)
[2017-08-29] MEDS: ACETAMINOPHEN 325 MG TAB PO PRN (10:20)
--- NOTE | 2017-08-29 11:51 | HHI.PYPN ---
Subjective Chief Complaint: Psychosis Remarks Patient seen and examined with nurse. Chart reviewed. Case discussed with nursing staff. No behavioral issues overnight. Case discussed with recreation therapist who reports patient is more appropriate in their interactions. Case discussed with counselor. On my exam, patient is more lucid and relevant in conversation. He denies any SI/HI or AVH. He continues to exhibit poor insight regarding his psychotic illness that is resistant to my efforts at psychoeducation. He flat out insists at one point "I am not schizophrenic." He does accept that he needs medications, however, and feels that these are helping him, although he struggles to say how. Denies side effects from medications besides some mild dry mouth; we discuss need for ample hydration, use of Biotene p.r.n. and use of sugar-free hard candies. No physical complaints otherwise. Spoke with patient's mother/GA. She notes patient is improved with Prolixin and provides consent for Prolixin Dec. We discuss ongoing difficulties with lack of insight. We discuss discharge planning, and mother is agreeable to a discharge home within the next few days. Review of Systems Except as stated in HPI: all other systems reviewed are Neg Mental Status Examination Appearance: Appropriate Consciousness: Alert Orientation: Person, Place, Date/Time Motor Activity: Normal gait, Other (No hand tremor, no dystonia, no dyskinesia. ) Speech: Unremarkable Language: Adequate Fund of Knowledge: Adequate Attention and Concentration: Adequate Memory: Unremarkable Mood: Appropriate Affect: Appropriate Thought Process & Associations: Circumstantial Thought Content: Bizarre thinking (at times) Hallucination Type: None, Other Delusion Type: None Suicidal Ideation: No Suicidal Plan: No Suicidal Intention: No Homicidal Ideation: No Homicidal Plan: No Homicidal Intention: No Insight: Poor Judgment: Poor Results Labs Labs reviewed. 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 Continue oral Prolixin supplementation. Continue Cogentin. Continue to monitor on an inpatient unit. Continue other medications and care as ordered. Justification for Cont. Inpt. Medication changes. Discharge Planning Patient's overall course is improving, and I suspect we are approaching maximal benefit from the hospital stay. Anticipate discharge by the middle of the week. Request HC Surrog/Guard Advoc?: Yes Walt Caldwell MD Aug 29, 2017 11:51
[2017-08-29 15:30] VITALS: BP 141/65; PULSE 75; RESP 18; TEMP 98.3; O2SAT 75
[2017-08-29] MEDS: REMOVE OLD LIDOCAINE PATCH T-DERMAL SCH (21:00)
[2017-08-30 06:29] VITALS: BP 108/67; PULSE 70; RESP 16; TEMP 98.4; O2SAT 99
[2017-08-30] MEDS: CHOLECALCIFEROL (VIT D3) 1000 UNIT TAB PO SCH (08:25)
[2017-08-30] MEDS: BENZTROPINE MESYLATE 2 MG TAB PO SCH ×2 (08:25→21:07)
[2017-08-30] MEDS: LORazepam 1 MG TAB PO PRN ×2 (08:25→14:37)
[2017-08-30] MEDS: LIDOCAINE HCL 5% PATCH T-DERMAL SCH (08:26)
[2017-08-30] MEDS: NICOTINE 7 MG/24 HR PATCH T-DERMAL PRN (08:59)
--- NOTE | 2017-08-30 09:55 | PD.TTN ---
Patient Problems 1. Discharge planning 2. Medication compliance 3. Knowledge deficit 4. Lack of coping skills Progress Toward Goals Provider Present: Dr. Carlin Caldwell Provider Input: 08/30/17 - Patient has been started on Prolixin Dec. and appears to be improving. Possible discharge home tomorrow. 08/16/2018; patient is responding slowing with medication, requires ongoing treatment 08/12/17 - Patient continues to meet criteria. Dr. Caldwell is titrating patient's Zyprexa. 08/09/2017; Patient is being assess for medical needs and medication adjustment will be made Nurse(s) Present: JOSE Richey Nurse(s) Input: 08/16/2017; patient required a recent ETO, noncompliant with treatment requires redirection; verbally aggressive and violient behavior Psychiatric Counselors Present: Tan Chun Jr., [facility], Damaris Resendez, [facility] , [facility] Psych Therapist Input: 08/30/17 - Patient has been transferred to the 2600 unit and is adjusting well. He is discharge focused and continues to lack insight into his mental illness. Patient remains compliant with medications and without behavioral disturbance. 08/16/2017; Encourage with meals, medication and behavior 08/12/17 - Patient required an ETO and restraints yesterday. He remains internally stimulated and impulsive. 08/09/2017: patient will be assess for discharge needs, placement, services and treatment Group Spec/RT/OT/FELIZ Present: Susana Lino, [employer], Praneeth Jasmine, OT, Antoni Osman, FELIZ Group Spec/RT/OT/FELIZ Input: 08/30/17 - Patient attends groups and is easily redirected. 08/26/2017: Patient has been attending the sheduled group activities. Pt's mood appears calmer. Social with select peers. 08/16/2017; patient is discharged focus, unable to attend groups due to his behavior 08/12/17 - Patient required frequent redirection. 08/09/2017; patient will be given inpatient treatment information Discharge Plan [facility], Other 08/26/2017: Discharge in planning stages by Patients Counselor. 08/12/17 - Patient will be discharged home when deemed appropriate by Dr. Caldwell. Documentation Scribe: Savita Falcon [facility] Date Resolved: Aug 30, 2017 Savita Falcon [facility] Aug 30, 2017 09:55
[2017-08-30] MEDS: NAPROXEN 375 MG TAB PO PRN (10:17)
--- NOTE | 2017-08-30 10:35 | HHI.PYPN ---
Subjective Chief Complaint: Psychosis Remarks Patient seen and examined. Chart reviewed. Case discussed with nursing staff. No behavioral issues noted overnight. Case discussed in treatment team. Counselor notes that following my interview with the patient yesterday he did articulate some improved insight to the counselor. Recreation therapist notes that the patient is much improved versus admission. On my examination today, the patient is fairly relevant in conversation. Thought process organized. No SI or HI. No AVH. Denies side effects from medications. Reports back pain is improved and has no other physical complaints. Review of Systems Except as stated in HPI: all other systems reviewed are Neg Mental Status Examination Appearance: Appropriate Consciousness: Alert Orientation: Person, Place (at least) Motor Activity: Normal gait, Other (no motor abnormalities noted) Speech: Unremarkable Language: Adequate Fund of Knowledge: Adequate Attention and Concentration: Adequate Memory: Unremarkable Mood: Appropriate Affect: Appropriate Thought Process & Associations: Intact Thought Content: Other (remains a little perseverative on discharge) Hallucination Type: None Delusion Type: None Suicidal Ideation: No Suicidal Plan: No Suicidal Intention: No Homicidal Ideation: No Homicidal Plan: No Homicidal Intention: No Insight: Poor (perhaps improving somewhat) Judgment: Poor Results Labs Labs reviewed. Vitals/IOs Vital Signs Date Time Temp Pulse Resp B/P (MAP) Pulse Ox O2 Delivery O2 Flow Rate FiO2 08/30/17 06:29 98.4 70 16 108/67 (81) 99 Assessment & Plan Problem List: (1) Schizophreniform disorder ICD Codes: F20.81 - Schizophreniform disorder Assessment & Plan Continue oral Prolixin supplementing Prolixin Decanoate. Continue to monitor on the inpatient unit. Continue other medications and care as ordered. Justification for Cont. Inpt. Risk for decompensation Discharge Planning Possible discharge home tomorrow. Request HC Surrog/Guard Advoc?: Yes Walt Caldwell MD Aug 30, 2017 10:35
[2017-08-30] MEDS: ACETAMINOPHEN 325 MG TAB PO PRN (16:47)
[2017-08-30 18:27] VITALS: BP 110/57; PULSE 79; RESP 18; TEMP 98.8; O2SAT 98
[2017-08-30] MEDS: REMOVE OLD LIDOCAINE PATCH T-DERMAL SCH (21:00)
[2017-08-31 05:56] VITALS: BP 93/47; PULSE 57; RESP 20; TEMP 98.5; O2SAT 98
[2017-08-31] MEDS: LIDOCAINE HCL 5% PATCH T-DERMAL SCH (08:33)
[2017-08-31] MEDS: BENZTROPINE MESYLATE 2 MG TAB PO SCH (08:33)
[2017-08-31] MEDS: CHOLECALCIFEROL (VIT D3) 1000 UNIT TAB PO SCH (08:33)
[2017-08-31] MEDS: LORazepam 1 MG TAB PO PRN (09:41)
[2017-08-31] MEDS ORDERED: FLUP5TAB PO (11:25)
[2017-08-31] MEDS ORDERED: CHOL1000 PO (11:25)
[2017-08-31] MEDS ORDERED: Benztropine PO (11:25)
[2017-08-31] MEDS ORDERED: FLUP1INJ IM (11:26)
[2017-08-31] MEDS ORDERED: LORA-392 PO (11:26)
--- NOTE | 2017-08-31 11:27 | HHI.DS ---
Psychiatry Discharge Summary Inpatient Psychiatric care?: Yes Advance Directive: Yes Mental Health AdvanceDirective: No Health Care Proxy: No Admission Admission Date Aug 08, 2017 at 09:26 Admission Diagnosis: (1) Schizophrenia, paranoid type ICD Code: F20.0 - Paranoid schizophrenia Brief History 22-year-old male with reported history of schizophrenia, admitted under a Guerrier act after he was found walking in traffic. Patient is a poor historian with marked looseness of association, confusion, disjointed and irrelevant comments, etc. Apparently he was also violent in the emergency department, with law- enforcement and emergency ophthalmic medical assistant. He required being tased according to nurse Ursula. The Guerrier act indicates he was found in the street , walking in traffic. The patient is unable to explain this but made the comment that he was "doing great" and fixing his back by his actions. He was also reporting a history of shaking, which he attributes to his Abilify, which he acknowledges he stopped on his own. Additionally, when he was brought to this emergency department, he attempted to "race" out of here. He does admit to paranoid delusions but states he fixed this somehow using "the nursing beds" . Finally, he reports living in [place] with his parents, but does not consider them family. Tobacco Use In Past 30 Days: Refused To Answer Alcohol Use: Never Hospital Course Patient was admitted to a locked, inpatient unit. A general medical consultation was obtained. Appropriate precautions were in place throughout patient's hospital stay. Patient was seen and examined on the unit by psychiatry and also visited by counselor. Psychotropic medications were adjusted. Patient had inadequate response to Zyprexa and Risperdal but had a robust, positive response to Prolixin and was started on Prolixin Decanoate. Patient's behavior improved with the benefit of pharmacologic treatment, and he was able to be transferred from the higher acuity unit to the lower acuity unit and tolerated the milieu on the lower acuity unit well. Although he engaged in some self-injurious behavior early in the hospital stay, there was no evidence of any self-injurious behavior or violent behavior in the several days prior to discharge when he was on the lower acuity unit. Collateral information was obtained from the patient's mother. On the day of discharge: Patient seen and examined with nurse. Chart reviewed. Case discussed with nursing staff. No behavioral issues noted overnight. On my examination today, the patient is requesting discharge from the inpatient psychiatric unit today. He denies any suicidal or homicidal ideation, intent or plan on direct questioning and contracts for safety. Mood is presently stable and I can elicit no depressive or hypomanic/manic symptoms in this patient at this time. He denies any audiovisual hallucinations. I can elicit no delusional material. He says that he feels that his thoughts are "clear." He denies any side effects from medications. He is able to say that he needs to take medications on an outpatient basis and follow up with outpatient provider. Education provided regarding the patient's discharge medication regimen. He has no acute physical complaints. Collateral information obtained from the patient's mother on the day of discharge. She is comfortable with having the patient discharged home today, and I have reviewed the patient's discharge medication regimen with her as well. Suicide and violence risk assessment on day of discharge both suggest lower imminent risk, and the patient's level of function is adequate for outpatient care. The patient no longer meets criteria for involuntary psychiatric hospitalization. He has maximized benefit from this inpatient psychiatric hospital stay and will be discharged today with psychiatric follow- up as arranged by counselor. Patient is also to follow-up with primary care. I have counseled the patient to abstain from substances of abuse. I have counseled the patient regarding warning signs for need to return to the psychiatric emergency room as part of a general safety plan. Results Blood Pressure 93 / 47 Vital Signs Date Time Temp Pulse Resp B/P (MAP) Pulse Ox O2 Delivery O2 Flow Rate FiO2 08/31/17 05:56 98.5 57 20 93/47 (62) 98 Laboratory Results Test 08/09/17 07:00 Cholesterol Level 128 MG/DL (120-200) HDL Cholesterol 44.2 MG/DL (40.0-60.0) Hemoglobin A1c 5.4 % (4.3-6.0) LDL Cholesterol 66 MG/DL (0-99) Triglycerides Level 89 MG/DL (42-150) Summary of Procedures None done Imaging Last Impressions Head CT 08/23/17 0000 Signed Impressions: Service Date/Time: Wednesday, August 23, 2017 14:31 - CONCLUSION: Normal examination for a patient of this age. No significant change has occurred. Tay Salcido MD Hand X-Ray 08/19/17 0000 Signed Impressions: Service Date/Time: Sunday, August 20, 2017 09:19 - CONCLUSION: Unremarkable limited examination of the right hand. Dennis Alva MD Ankle X-Ray 08/11/17 0000 Signed Impressions: Service Date/Time: July 13:40 - CONCLUSION: No evidence of recent bony injury. Feng Del Castillo MD Pending results at discharge: No Medications # of Antipsychotic meds at D/C: 1 Approp Antipsych med options 1 - Minimum of three failed multiple trials of monotherapy. 2 - Documented plan to taper to monotherapy due to previous use of multiple meds OR cross-taper in progress at D/C. 3 - Documentation of augmentation of Clozapine. 4 - Justification other than those listed in allowable values 1-3, document here : Discharge Discharge Date: Aug 31, 2017 Discharge Diagnosis: (1) Schizophreniform disorder Diagnosis: Principal (stabilized) ICD Code: F20.81 - Schizophreniform disorder Pt Condition on Discharge: Stable Discharge Disposition: Discharge Home Discharge Instructions Diet Instructions: As Tolerated, No Restrictions Activities you can perform: Weight Bearing as Jordan Scheduled Appointment: as per counselor's notes New Orders: VITAMIN D,25-HYDROXY - 2 Months New Medications: Fluphenazine Decanoate Inj (Fluphenazine Decanoate Inj) 125 Mg/5 Ml Inj 25 MG IM Q21D for Mental Health, #1 VIAL 0 Refills This dose of Prolixin Decanoate is due on 09/19/2017. Lorazepam (Ativan) 0.5 Mg Tab 0.5 MG PO Q6H PRN for ANXIETY AND/OR AGITATION, #15 TAB 1 Refill Cholecalciferol (Gnp Vitamin D3 Extra Stre) 1,000 Unit Tab 1000 UNITS PO DAILY for Nutritional Supplement for 15 Days, TAB 1 Refill Fluphenazine (Fluphenazine) 5 Mg Tab 5 MG PO QID for Mental Health for 15 Days, TAB 1 Refill Continue taking oral Prolixin at least until your next Prolixin Decanoate injection or as instructed by your outpatient provider. [Benztropine] () 2 MG TAB 2 MG PO Q12HR for Side effect management for 15 Days, 1 Refill Discontinued Medications: Aripiprazole (Abilify) Unknown Strength Tab Unknown Dose PO DAILY, #30 TAB 0 Refills Discharge Time > 30 minutes Mental Status Examination Appearance: Appropriate Consciousness: Alert Orientation: x4 Motor Activity: Normal gait, Other (no hand tremor, no cogwheeling, no dystonias, no dyskinesias, no other motor abnormalities noted.) Speech: Unremarkable Language: Adequate Fund of Knowledge: Adequate Attention and Concentration: Adequate Memory: Unremarkable Mood: Appropriate Affect: Appropriate Thought Process & Associations: Intact, Logical, Linear Thought Content: Appropriate Hallucination Type: None Delusion Type: None Suicidal Ideation: No Suicidal Plan: No Suicidal Intention: No Homicidal Ideation: No Homicidal Plan: No Homicidal Intention: No Mental Status Exam Remarks Insight and judgment are fair to poor Discharge/Advance Care Plan Health Problems: (1) Schizophreniform disorder Goals to promote your health * To prevent worsening of your condition and complications * To maintain your health at the optimal level Directions to meet your goals Take your medications as prescribed Follow your dietary instruction Follow activity as directed Keep your appointments as scheduled Take your immunizations and boosters as scheduled If your symptoms worsen call your PCP, if no PCP go to Urgent Care Center or Emergency Room For 10/01 questions related to your inpatient stay or results of tests pending at discharge, please contact Dr. Walt Caldwell at Smoking is Dangerous to Your Health. Avoid second hand smoking Walt Caldwell MD Aug 31, 2017 11:27
== END 2017-08-31 15:50 | disposition home or self-care (01) | DRG 885 ==
LOC: NEPE 22:59 → NEDA 08-08 09:26 → H270 08-08 15:39 → H260 08-25 13:00
PROVIDERS: ADMIT Psychiatry & Neurology Psychiatry; ATTEND Psychiatry & Neurology Psychiatry
DX: F20.81 Schizophreniform disorder (principal); Z78.1 Physical restraint status; Z91.14 Patient's other noncompliance with medication regimen; F31.9 Bipolar disorder, unspecified; F90.9 Attention-deficit hyperactivity disorder, unspecified type; F17.210 Nicotine dependence, cigarettes, uncomplicated; G89.29 Other chronic pain; M54.5 Low back pain; M79.641 Pain in right hand; M25.572 Pain in left ankle and joints of left foot; R68.2 Dry mouth, unspecified; R07.9 Chest pain, unspecified
CPT/HCPCS: 70450; 73120; 73130; 73600; 80053; 80061; 80307; 81001; 82306; 82550; 82552; 82607; 83036; 84443; 84484; 85025; 93005; 99285; J1200; J1630; J2060; J2680; J3230; J3486

== ENCOUNTER 2018-02-12 02:00 | Inpatient (IN) ==
--- NOTE | 2018-02-12 02:46 | ED ---
HPI General Chief complaint: Psychiatric Symptoms Stated complaint: Psych Eval Time Seen by Provider: 02/12/18 02:36 History of Present Illness HPI narrative: This is a 23-year-old male with reported history of schizophrenia who is a transfer from [facility] where he was medically cleared. He was sent here for psychiatric evaluation. He is under a Guerrier act initiated by [place] police. According to his paperwork he refused medical treatment after cutting his right wrist with glass and a broken window. He was also physically resisting police officers because he has a history of mental illness was felt that he should be placed under Guerrier act. The patient reports that he punched a window at his house in order to get in. He sustained a laceration to his right wrist. He allowed the physician at [facility] to repaired with Steri-Strips but declined sutures or Dermabond. He was then medically cleared and transferred here. He has no medical complaints at this time. He denies any numbness or tingling or weakness in the right hand. He denies any suicidal or homicidal ideation, auditory or visual hallucination, drug or alcohol use. Related Data Home Medications Medication Instructions Recorded Confirmed fluphenazine HCl 30 mg PO DAILY 02/12/18 02/12/18 Allergies Allergy/AdvReac Type Severity Reaction Status Date / Time No Known Allergies Allergy Unverified 02/12/18 02:20 Review of Systems ROS: all other systems reviewed are negative [facility] Medical History Medical History Schizophrenia (Acute) Surgical History Surgical History No history of previous surgery (Acute) Social History Social History Substance History: No History of Abuse Smoking Status: Current every day smoker Tobacco Type: Cigarettes How Often Do You Have a Drink Containing Alcohol: Never Recent Travel in [facility] within the Last 8 Weeks: No Recent Out of Country Travel within the Last 8 Weeks: No Immunization History Tetanus Immunization: <5 Years Hx Influenza Vaccine This Season: Yes Exam Narrative Exam Narrative: GENERAL: Well-developed well-nourished male in no acute distress SKIN: Warm and dry. Bandages are noted to the right wrist. HEAD: Atraumatic. Normocephalic. EYES: Pupils equal and round. No scleral icterus. No injection or drainage. ENT: No nasal bleeding or discharge. Mucous membranes pink and moist. NECK: Trachea midline. No JVD. CARDIOVASCULAR: Regular rate and rhythm. No murmur appreciated. RESPIRATORY: No accessory muscle use. Clear to auscultation. Breath sounds equal bilaterally. GASTROINTESTINAL: Abdomen soft, non-tender, nondistended. Hepatic and splenic margins not palpable. MUSCULOSKELETAL: No obvious deformities. Patient maintains full range of motion of the right hand and wrist. Distal sensation is preserved in the median radial and ulnar nerve distributions. Distal strength is intact in the median radial and ulnar nerve distributions. Capillary refill less than 2 seconds in all digits of the right hand. NEUROLOGICAL: Awake and alert. No obvious cranial nerve deficits. Motor grossly within normal limits. Normal speech. PSYCHIATRIC: Appropriate mood and affect; insight and judgment normal. Course Initial Documented Vital Signs Temperature 98.0 F 02/12/18 02:23 Pulse Rate 76 02/12/18 02:23 Respiratory Rate 18 02/12/18 02:23 Blood Pressure 128/68 02/12/18 02:23 Pulse Oximetry 99 02/12/18 02:23 Last Documented Vital Signs Temperature 98.0 F 02/12/18 02:23 Pulse Rate 76 02/12/18 02:23 Respiratory Rate 18 02/12/18 02:23 Blood Pressure 128/68 02/12/18 02:23 Pulse Oximetry 99 02/12/18 02:23 Medical Decision Making MDM Narrative Medical decision making narrative: Mental health screening discussed with the patient. Psychiatric screen ordered. The patient remains medically cleared. Medical Screen Exam Complete: Yes Emergency Medical Condition: Yes Differential Diagnosis Differential Diagnosis: Adjustment reaction, acute psychosis, major depressive disorder, substance-induced mood disorder Discharge Plan Discharge Disposition Patient Disposition: 30 Still Patient Discharge Condition Condition: Stable Discharge Details Diagnosis: Encounter for medical clearance for patient hold Physicians Team ED Provider: Dennis Martínez ED Midlevel Provider: Ilan Antony Rxs /Orders / Referrals /Forms Prescriptions: No Action fluphenazine HCl 5 mg Tablet 30 mg PO DAILY RF: 0 Status ED Status: With Doctor
--- NOTE | 2018-02-12 12:27 | ED ---
HPI - Psych - General Source: patient Mode of arrival: EMS Limitations: no limitations - History of Present Illness MD complaint: other (internally stimulated, auditory hallucinations) Duration: constant Relieving factors: none Exacerbating factors: none - General Chief Complaint: Psychiatric Symptoms Stated Complaint: Psych Eval Time Seen by Provider: 02/12/18 02:36 - History of Present Illness HPI Narrative: Patient is a 23-year-old male, single, no children, unemployed, who was transferred from [facility]. He was placed under a Guerrier act by the [employer] police. Guerrier act states," brain he refused medical treatment after cutting his right wrist with glass and a broken window. Jose could not give offices or medical staff a reason for the broken window. Enrique refuses all help from doctors and police. Jose also physically resisted officers. Jose has a history of mental illness and being aggressive. Father states brain has been sad and crying a lot lately." Patient was last admitted to [facility] on August 08, 2017 and was discharged on August 31, 2017. At the time of this admission he was walking into traffic and that officers had to taze him to stop him. He was at that time admitting to paranoid delusions and he was diagnosed by the psychiatrist with schizophrenia. He was placed on Zyprexa and Risperdal with an adequate response. He was then changed to Prolixin p.o. and started on Prolixin decanoate. Collateral: Father [place] , . Father states that patient has been talking to himself on a regular basis. He believes that his son has been using marijuana to get rid of the voices but all this is done is escalate his anger frustration and irritability. He has a girlfriend but she has not been coming over for the past week so the father called the girlfriend. Girlfriend states that he has been crying and will not tell her what is wrong and talking to himself. Father states that during his last admission that the Risperdal caused him to have elevated prolactin levels so this medication was discontinued. Father feels that he was having efficacy with the Prolixin but his son refuses to take it. Patient states that he is taking Prolixin 30 mg daily. It appears that he did not get to the point where he transition to the Prolixin deconate a regular basis. Patient states that he broke the window to get in the house. Father states that the broken glass was found in the bathroom behind the toilet. Father states it would be no reason to break the window because they were at home. Father has removed the knives from the home in fear that his son would do farther heart harm to himself. Chart reviewed and discussed with nursing staff. Patient is in room D 42 of the emergency department. [facility] is in [facility]. He is clean but is disheveled. He avoids eye contact. He is alert to self, date of the week, and place. Motor and gait is normal. Speech is normal rate and rhythm. Affect is blunted and flat with a depressed mood. Patient is a poor historian and will not engage in lengthy conversation. He appears to be internally stimulated with auditory hallucinations. His attention concentration is mildly impaired. Insight is fair judgment is mildly impaired. He denies any suicidal homicidal ideations, but will not acknowledge that the cut to his risk is anything but accidental. Patient is at moderate risk for decompensation. I have discussed admission with his father he agrees with this plan is in the best interest of his son. Will admit patient to inpatient psychiatric unit for further assessment and treatment. I have been unable to review current labs as they were completed at [facility]. Will order basic labs with this admission. (Kandi Avery) - Related Data Home Medications Medication Instructions Recorded Confirmed fluphenazine HCl 30 mg PO DAILY 02/12/18 02/12/18 Allergies Allergy/AdvReac Type Severity Reaction Status Date / Time No Known Allergies Allergy Unverified 02/12/18 02:20 Review of Systems All other systems reviewed negative except as stated in HPI PMFSH - History History Provided By: Patient - Medical History Medical History: Medical History (Last Updated 02/12/18 @ 02:25 by Elvin Rosales) Schizophrenia - Surgical History Surgical History: Surgical History (Last Updated 02/12/18 @ 02:25 by Elvin Rosales) No history of previous surgery - Tobacco History Tobacco Use In Past 30 Days: Yes Smoking Status: Current every day smoker Tobacco Type: Cigarettes - Alcohol History How Often Do You Have a Drink Containing Alcohol: Never - Substance Use History Substance History: No History of Abuse - Travel History Recent Travel in the [facility] Within the Last 8 Weeks: No Recent Travel Out of the Country Within the Last 8 Weeks: No - Immunization History Tetanus Immunization: <5 Years Hx Influenza Vaccine This Season: Yes Psychiatric History - Psychiatric History Patient was diagnosed with schizophrenia in July 2017. He is currently prescribed Prolixin p.o. 30 mg daily. (Kandi Avery) Physical Exam - General Limitations: no limitations General appearance: alert - Head Head exam: atraumatic - Eye Eye exam: Present: normal appearance - ENT ENT exam: Present: normal exam - Neck Neck exam: Present: normal inspection Mental Status Examination Appearance: Appropriate, Disheveled, Other (clean) Consciousness: Alert Orientation: Person, Place, Situation Motor Activity: Normal gait Speech: Unremarkable Language: Adequate Fund of Knowledge: Adequate Attention and Concentration: Easily distracted Memory: Immediate (intact) Mood: Sad Affect: Flat, Blunt Thought Process & Associations: Disorganized Thought Content: Hallucinations Hallucination Type: Auditory Delusion Type: Paranoid Suicidal Ideation: No Suicidal Plan: No Suicidal Intention: No Homicidal Ideation: No Homicidal Plan: No Homicidal Intention: No Insight: Fair Judgment: Poor Initial Documented Vital Signs Temperature 98.0 F 02/12/18 02:23 Pulse Rate 76 02/12/18 02:23 Respiratory Rate 18 02/12/18 02:23 Blood Pressure 128/68 02/12/18 02:23 Pulse Oximetry 99 02/12/18 02:23 Last Documented Vital Signs Temperature 98.0 F 02/12/18 02:23 Pulse Rate 63 02/12/18 06:10 Respiratory Rate 14 02/12/18 06:10 Blood Pressure 109/58 L 02/12/18 06:10 Pulse Oximetry 100 02/12/18 06:10 [facility] - Psych - Diagnosis (1) Schizophrenia Status: Acute - Medical Records Attestation: I reviewed the patient's medical records. - [facility] Narrative Medical decision making narrative: Patient is a 23-year-old male who has recently been diagnosed with schizophrenia. He failed Zyprexa and Risperdal. He was started on Prolixin 30 mg daily. He has been noncompliant with his medications. He took a piece of broken glass and tried to cut his wrist. According to his father he has been increasingly feeling irritable, agitated, and talking to himself. He has been withdrawn and has not seen his girlfriend for 1 week. Patient refuses to have his resutured and so his cut was closed with Steri-Strips. Patient is at moderate risk for decompensation. Will admit patient for further assessment and treatment. (Kandi Avery)
[2018-02-12] MEDS ORDERED: Aluminum/Magnesium/Simethacone Susp 30 ML UDC PO PRN (12:33)
[2018-02-12 13:21] LABS: Amphetamine Screen,Urine Neg (Neg); Barbiturate Screen,Urine Neg (Neg); Cannabinoid Screen,Urine Pos (Neg); Cocaine Screen,Urine Neg (Neg); Opiate Screen,Urine Neg (Neg)
[2018-02-12] MEDS: Senna/Docusate Sodium 8.6/50 MG Tablet PO SCH (21:11)
[2018-02-13] MEDS: Senna/Docusate Sodium 8.6/50 MG Tablet PO SCH ×2 (08:54→23:42)
--- NOTE | 2018-02-13 11:19 | P.HPPSY ---
Provisional Diagnosis Admission Date: February 12, 2018 12:32 [place] I.: 1. Schizophrenia, undifferentiated type Rule out schizoaffective disorder 2. Cannabis abuse [place] II.: Deferred Competence Certification of Person's Competence To Provide Express and Informed Consent I have personally examined Jose Keys, a person being served at [facility] on, February 13, 2018 1119. Express and informed consent means consent voluntarily given in writing, by a competent person, after sufficient explanation and disclosure of the subject matter involved to enable the person to make a knowing and willful decision without any element of force, fraud, deceit, duress, or other form of constraint or coercion. This person is 18 years of age or older, is not now known to be incompetent to consent to treatment with a guardian advocate, and does not have a health care surrogate or proxy currently making medical treatment decisions. I have found this person to be one of the following: [] Competent to provide express and informed consent, as defined above, for voluntary admission to this facility and is competent to provide express and informed consent for treatment. He/she has the consistent capacity to make well reasoned, willful, and knowing decisions concerning his or her medical or mental health treatment. The person fully and consistently understands the purpose of the admission for examination/placement and is fully capable of personally exercising all rights assured [place] [X] Incompetent to provide express and informed consent to voluntary admission, and this is incompetent to provide express and informed consent to treatment. The person must be transferred to involuntary status and a petition for a guardian advocate filed with the Circuit Court. [] Refusing to provide express and informed consent to voluntary admission but is competent to provide express and informed consent for treatment. The person must be discharged or transferred to involuntary status. Form shall be completed within 24 hours of a person's arrival at the receiving facility and filed in the clinical record of each person: 1. Admitted on a voluntary basis 2. Permitted to provide express and informed consent to his/her own treatment 3. Allowed to transfer from involuntary to voluntary status 4. Prior to permitting a person to consent to his or her own treatment after having been previously found incompetent to consent to treatment. History of Present Illness Capacity: Lacks capacity Chief Complaint: Guerrier act History of Present Illness: Mr. Keys is a 23-year-old male with a history of schizophreniform disorder who presents in transfer from [facility] under a Guerrier act by law enforcement. Documentation from outside hospital reviewed. Patient was brought into the hospital with cut to right forearm. According to collateral obtained by ED provider from patient's father, patient seemed depressed. When the parents went out for dinner, patient reportedly came to the restaurant with his arms covered, found to have laceration. Patient refused suture repair of laceration in the ED. reviewing our electronic medical record, I note that the patient was admitted under my care in July of this year. Patient seen and examined with counselor. Chart reviewed. Case discussed with nursing staff. On my examination today, the patient presents as disheveled. He insists that the laceration to the right hand was sustained trying to get inside his house, saying that he tripped into a window. He denies any suicidal or homicidal ideation, intent or plan saying "of course not." He denies audiovisual hallucinations, but only after a pause. He does appears somewhat internally preoccupied. I can elicit no paranoia or ideas of reference. He is evasive when I ask about feelings of thought manipulation. Mood is described as "tired, anxious to go home." Affect is dysphoric, and the patient does become tearful at points in the interview. Remainder of the psychiatric ROS is negative. No acute physical complaints. Past psychiatric history: The patient has a history of schizophreniform disorder. He reports that he follows with an outpatient provider name My in [place] but takes no psychotropic medications. Patient says "I do not need medications." He cannot say when he last took any psychotropic medications. He is somewhat evasive when I ask about interval psychiatric admissions between current admission and most recent admission at [place]. He denies a history of suicide attempts. Family history: The patient denies any family history of mental illness. Chemical dependency history: The patient reports use of cannabis saying it helps him sleep. Social history: The patient lives with his parents. He does not work. He is not presently in school. He has a girlfriend. He has no children. He denies any access to guns or firearms. Given the patient's degree of psychiatric impairment, I did endeavor to obtain collateral from the patient's mother Karen at [phone] as well as stepfather Ac Keys at [phone]. I have left generic voicemails for both requesting a call back. - Inpatient Certification I certify that the inpatient services were ordered in accordance with Medicare regulations governing the order. This includes certification that hospital inpatient services are reasonable and necessary and in the case of services not specified as inpatient-only under 42 CFR 419.22(n), that they are appropriately provided as inpatient services in accordance to with the 2-midnight benchmark under 43 CFR 412.3(e) I certify that inpatient psychiatric hospital services are medically necessary. Evaluation and treatment and/or diagnostic testing are expected to improve the patient's condition. The patient needs on a daily basis, active treatment furnished directly by or requiring the supervision of inpatient psychiatric facility personnel. Estimated Total Length of Stay (Days): 9 (7-9) Plans for Post Hospital Care: Not yet determined Review of Systems All other systems reviewed negative except as stated in [facility] - History History Provided By: Patient - Medical History Medical History: Medical History (Last Updated 02/12/18 @ 02:25 by Elvin Rosales) Schizophrenia - Surgical History Surgical History: Surgical History (Last Updated 02/12/18 @ 02:25 by Elvin Rosales) No history of previous surgery - Tobacco History Second Hand Smoke Exposure: Yes Tobacco Use In Past 30 Days: Yes Smoking Status: Heavy tobacco smoker Tobacco Type: Cigarettes - Alcohol History How Often Do You Have a Drink Containing Alcohol: Never - Substance Use History Substance History: Active Abuse - Travel History Recent Travel in the [place] Within the Last 8 Weeks: No Recent Travel Out of the Country Within the Last 8 Weeks: No - Immunization History Tetanus Immunization: <5 Years Hx Influenza Vaccine This Season: Yes Quality Measures - Psychiatric History Psychological trauma history: No reported trauma history to me - Patient Strengths Patient's strengths (minimum of 2): In a monitored setting. Verbally fluent. Medications and Allergies Active Medications: Active Medications Al Hydrox/Mg Hydrox/Simethicone (Mag-Al Plus Susp Liq) 30 ml PO Q6H PRN PRN Reason: DYSPEPSIA Senna/Docusate Sodium (Symone-Colace) 1 tab PO BID FRANKLIN Last Admin: 02/13/18 08:54 Dose: Not Given Allergies Allergy/AdvReac Type Severity Reaction Status Date / Time No Known Allergies Allergy Unverified 02/12/18 02:20 Home Medications Medication Instructions Recorded Confirmed Type fluphenazine HCl 30 mg PO DAILY 02/12/18 02/12/18 History Results - Labs Labs: Laboratory Results - last 24 hr 02/12/18 13:00 Urine Opiates Screen Neg Ur Barbiturates Screen Neg Ur Amphetamines Screen Neg U Benzodiazepines Scrn Neg Urine Cocaine Screen Neg U Cannabinoids Screen Pos H Labs from outside hospital reviewed: CBC reveals leukocytosis with WBC 18.3 CMP reveals elevated anion gap at 18 and mild hyperglycemia in a nonfasting sample at 124. Tylenol and salicylate level undetectable. Alcohol level undetectable. Urine toxicology positive for cannabinoids. Urinalysis reveals 2 + ketones and trace blood and protein as well as 1+ urobilinogen but no leukocyte esterase or nitrites or pyuria. Exam Vital signs: Vital Signs 02/12/18 12:42 02/12/18 14:10 02/13/18 06:32 Temperature 98.3 F Pulse Rate 70 72 75 Respiratory Rate 18 18 Blood Pressure 117/67 137/77 114/57 L Pulse Oximetry 100 98 Intake & Output 02/12/18 02/13/18 02/13/18 18:59 06:59 18:59 Weight 68.9 kg 68.9 kg Other: Weight On Admission 68.9 kg Narrative: Physical exam completed by ED provider at outside hospital. On my examination today, the patient appears to be in no acute physical distress. No motor abnormalities noted. He does have a transverse laceration ~4cm in length on the anterior aspect of the wrist and a series of superficial scratches more proximal to this. (i.e. in the form: \\ /// with thumb at the top). Labs and vital signs reviewed. Mental Status Examination Appearance: Disheveled Consciousness: Alert Orientation: Person, Place (At least) Motor Activity: Normal gait Speech: Unremarkable Language: Adequate Fund of Knowledge: Adequate Attention and Concentration: Easily distracted Memory: Unremarkable Mood: Other (Dysphoric) Affect: Other (Restricted, tearful at times) Thought Process & Associations: Circumstantial Thought Content: Hallucinations Hallucination Type: Other (Appears internally stimulated) Delusion Type: Other (Possible feelings of thought manipulation) Suicidal Ideation: No (Unreliable to contract for safety) Suicidal Plan: No Suicidal Intention: No Homicidal Ideation: No Homicidal Plan: No Homicidal Intention: No Insight: Poor Judgment: Poor Assessment and Plan - Assessment (1) Schizophrenia Code(s): F20.9 - Schizophrenia, unspecified Status: Acute (2) Cannabis abuse Code(s): F12.10 - Cannabis abuse, uncomplicated Status: Acute - Plan Plan: 23-year-old male with psychiatric history as detailed above who presents in transfer from outside hospital under a Guerrier act. On my examination today, the patient insists that laceration to forearm was accidental and the result of tripping into a window, although this seems unlikely. I am concerned that the patient made a suicide attempt by cutting and may be experiencing psychotic symptoms as part of his underlying primary psychotic illness. Patient has reportedly been nonadherent with psychotropic medications. He has several risk factors for ongoing self-harm and requires psychiatric hospitalization at this time for safety, observation and stabilization. Admit inpatient. Involuntary status. I have completed first opinion. Consult for second opinion. Request healthcare surrogate and guardian advocate. Psychotropic medications remain on hold pending consent from healthcare surrogate. Patient was previously stabilized on Prolixin at this facility. Check CBC to follow up leukocytosis. Follow-up BMP, hemoglobin A1c and lipid panel ordered by the nurse practitioner. Hospitalist consultation and wound care consultation for forearm laceration. Vitals every shift. Counselor to see. Collateral information. Disposition planning. Estimated length of stay: 7-9 .days Justification for Continued Inpatient Stay: Monitoring for impairment in safety. Concern for impairment in reality construction. High risk for decompensation in less restrictive environment. Discharge Planning: Pending psychiatric stabilization. Request Healthcare Surrogate/Guardian Advocate?: Yes (1) Schizophrenia Qualifiers: Schizophrenia type: undifferentiated schizophrenia Qualified Code(s): F20.3 - Undifferentiated schizophrenia
[2018-02-13] MEDS ORDERED: Acetaminophen 325 MG Tablet PO PRN (11:25)
--- NOTE | 2018-02-13 17:16 | P.CON ---
History of Present Illness Service: [facility] Consult date: 02/13/18 Requesting Physician: Walt Caldwell Reason for Consult: right FA laceration Primary Care Provider: No Primary Care Physician Review of Systems unobtainable due to mental condition (limited, pt. crying, distressed ) PMF - History History Provided By: Patient - Medical History Medical History: Medical History (Last Reviewed 02/13/18 @ 17:16 by DINA Patel) Schizophrenia - Surgical History Surgical History: Surgical History (Last Reviewed 02/13/18 @ 17:16 by DINA Patel) No history of previous surgery - Tobacco History Second Hand Smoke Exposure: Yes Tobacco Use In Past 30 Days: Yes Smoking Status: Heavy tobacco smoker Tobacco Type: Cigarettes - Alcohol History How Often Do You Have a Drink Containing Alcohol: Never - Substance Use History Substance History: Active Abuse - Travel History Recent Travel in the [facility] Within the Last 8 Weeks: No Recent Travel Out of the Country Within the Last 8 Weeks: No - Immunization History Tetanus Immunization: <5 Years Hx Influenza Vaccine This Season: Yes Medications and Allergies Active Medications: Active Medications Acetaminophen (Tylenol) 650 mg PO Q4H PRN PRN Reason: PAIN 1-10 AND/OR FEVER >101F Al Hydrox/Mg Hydrox/Simethicone (Mag-Al Plus Susp Liq) 30 ml PO Q6H PRN PRN Reason: DYSPEPSIA Senna/Docusate Sodium (Symone-Colace) 1 tab PO BID FRANKLIN Last Admin: 02/13/18 08:54 Dose: Not Given Allergies Allergy/AdvReac Type Severity Reaction Status Date / Time No Known Allergies Allergy Unverified 02/12/18 02:20 Home Medications Medication Instructions Recorded Confirmed Type fluphenazine HCl 30 mg PO DAILY 02/12/18 02/12/18 History Physical Exam Vital signs: Vital Signs 02/13/18 06:32 Pulse Rate 75 Blood Pressure 114/57 L Pulse Oximetry 98 Intake & Output 02/12/18 02/13/18 02/13/18 18:59 06:59 18:59 Weight 68.9 kg 68.9 kg Other: Weight On Admission 68.9 kg
--- NOTE | 2018-02-13 17:27 | P.PNWCN ---
Wound Care Nurse Consult Description: Received wound management consult for R forearm from Doctor Paulette Communicated with: JOSE Higginbotham [facility] [address] psych. Recommendation: Please leave Versatel one dressing in place to R wrist laceration for 7 days and change or change as needed for dislodgement or saturation as follows: Please cleanse wound with wound cleanser or normal saline and pat dry. Apply versatel one covering wound. Wound/Pressure Injury - Wound Right Wrist Wound Type: Laceration Is This a Chronic Wound: No Requested from Provider a Wound Care Consult: Yes (Wound care saw patient today) Length: 1.5 (~1.5cm) Width: 2.5 (~2.5cm) Depth: 0.3 (~0.3cm) Wound Bed Appearance: Red Wound Bed Appearance: dark red and dried blood Surrounding Tissue Appearance: [place] Surrounding Tissue Temperature: Cool Drainage Amount: None Drainage Odor: No Odor Dressing Status: Changed Cleansing Solution: wound cleanser Primary Dressing: Versatel one Wound Dressing Change Date: 02/13/18 - Additional Information Patient seen on [facility] psych for wound management to R forearm. Patient has a laceration of the R wrist.Steri strips were applied in ER. Patient has since removed them and per nurse has picked at the wound. Patient has trouble keeping dressings on with showering. Wound is open to air.Wound measurements and descriptions are noted above. Wound was cleansed with wound cleanser and patted dry. Applied Versatel one contact layer silicon adhesive dressing in place. Laura ARROYO in room during assessment. Patient is very upset at this time and is crying. Patient states, "I want to go home."
--- NOTE | 2018-02-13 17:58 | P.CON ---
History of Present Illness Service: [facility] Consult date: 02/13/18 Requesting Physician: Walt Caldwell Reason for Consult: Right FA laceration Primary Care Provider: No Primary Care Physician History of Present Illness: This is a 23-year-old male with history of schizophrenia who was transferred from [facility] under Guerrier act. Apparently the patient has been depressed, he cut the right forearm. He refused suture repair laceration in the ED. He was recently admitted to this facility in July 2017 to the psych unit. Review of psych notes, patient indicated that he was trying to get inside his house that he tripped into a window. He denied suicidal ideation. He tells me that he cut himself with a piece of glass. He is crying. booth usher is present and applying a dressing over the laceration. There is no drainage. There is no reported fever. He has some scratches to his chest but they are not deep. [facility] requested for medical management. Review of Systems unobtainable due to mental condition (Tearful, doesn't want to answer questions ) REPLACED BY [facility] - History History Provided By: Patient - Medical History Medical History: Medical History (Last Reviewed 02/13/18 @ 17:50 by DINA Patel) Schizophrenia - Surgical History Surgical History: Surgical History (Last Reviewed 02/13/18 @ 17:50 by DINA Patel) No history of previous surgery - Tobacco History Second Hand Smoke Exposure: Yes Tobacco Use In Past 30 Days: Yes Smoking Status: Heavy tobacco smoker Tobacco Type: Cigarettes - Alcohol History How Often Do You Have a Drink Containing Alcohol: Never - Substance Use History Substance History: Active Abuse - Travel History Recent Travel in the [facility] Within the Last 8 Weeks: No Recent Travel Out of the Country Within the Last 8 Weeks: No - Immunization History Tetanus Immunization: <5 Years Hx Influenza Vaccine This Season: Yes Medications and Allergies Active Medications: Active Medications Acetaminophen (Tylenol) 650 mg PO Q4H PRN PRN Reason: PAIN 1-10 AND/OR FEVER >101F Al Hydrox/Mg Hydrox/Simethicone (Mag-Al Plus Susp Liq) 30 ml PO Q6H PRN PRN Reason: DYSPEPSIA Senna/Docusate Sodium (Symone-Colace) 1 tab PO BID FRANKLIN Last Admin: 02/13/18 08:54 Dose: Not Given Allergies Allergy/AdvReac Type Severity Reaction Status Date / Time No Known Allergies Allergy Unverified 02/12/18 02:20 Home Medications Medication Instructions Recorded Confirmed Type fluphenazine HCl 30 mg PO DAILY 02/12/18 02/12/18 History Physical Exam Vital signs: Vital Signs 02/13/18 06:32 Pulse Rate 75 Blood Pressure 114/57 L Pulse Oximetry 98 Intake & Output 02/12/18 02/13/18 02/13/18 18:59 06:59 18:59 Weight 68.9 kg 68.9 kg Other: Weight On Admission 68.9 kg Narrative: GENERAL: 23-year-old male, appears disheveled, crying inconsolably. SKIN: Right FA with laceration approx. 1.5 cm long, by 2.5 cm width, no drainage. There are scratches to mid chest, superficial. HEAD: Atraumatic. Normocephalic. EYES: Pupils equal and round. No scleral icterus. No injection or drainage. ENT: No nasal bleeding or discharge. Mucous membranes pink and moist. NECK: Trachea midline. No JVD. CARDIOVASCULAR: Regular rate and rhythm. RESPIRATORY: No accessory muscle use. Clear to auscultation. Breath sounds equal bilaterally. GASTROINTESTINAL: Abdomen soft, non-tender, nondistended. Hepatic and splenic margins not palpable. MUSCULOSKELETAL: Extremities without clubbing, cyanosis, or edema. No obvious deformities. NEUROLOGICAL: awake, oriented x 3. Non focal PSYCHIATRIC: Tearful, evasive Assessment and Plan - Assessment (1) Laceration of right forearm Code(s): S51.811A - Laceration without foreign body of right forearm, initial encounter Status: Acute (2) Schizophrenia Code(s): F20.9 - Schizophrenia, unspecified Status: Acute (3) Cannabis abuse Code(s): F12.10 - Cannabis abuse, uncomplicated Status: Acute - Plan 23-year-old male admitted to psych unit under Guerrier act, history of schizophrenia. Apparently cut right forearm on a window, possibly self- inflicted. Right forearm laceration, patient refused sutures, removed Steri-Strips. Does not appear infected. No neurovascular involvement noted. Has intact sensation and movement of right hand, right radial pulses 2+. -Wound care consultation, recommendations noted. Continue with Versatel one dressing in place to R wrist laceration for 7 days and change or change as needed for dislodgement or saturation -Monitor for signs and symptoms of infection such as increased drainage, fever, increased erythema. -We will find out if patient received tetanus at [facility] if not we will give here Schizophrenia Continue with psychiatric care Cannabis abuse -Patient has been counseled Plan of care was discussed with patient and RN. He is counseled not to remove dressing. Further management of the patient will be dependent on the hospital course (2) Schizophrenia Qualifiers: Schizophrenia type: undifferentiated schizophrenia Qualified Code(s): F20.3 - Undifferentiated schizophrenia
[2018-02-13] MEDS ORDERED: Tetanus/Diphtheria Toxoid Adult Vaccine Inj 0.5 ML Vial IM ONE (18:22)
--- NOTE | 2018-02-14 08:49 | P.CONPSY ---
Provisional Diagnosis Admission Date: February 12, 2018 12:32 Cucumber I.: 1. Schizophrenia, undifferentiated type Rule out schizoaffective disorder 2. Cannabis abuse Cucumber II.: Deferred History of Present Illness Service: Psychiatry Consult date: 02/14/18 Requesting Physician: Walt Caldwell Reason for Consult: Second opinion petition supporting Iterable Primary Care Provider: No Primary Care Physician History of Present Illness: Patient is a 23-year-old white male admitted to Dr. Caldwell service under the [employer] act. Dr. Caldwell H&P reviewed. Dr. Caldwell assigned first opinion petition supporting Iterable. Patient seen by me in his room with nurse Anahy. Patient patient went paranoid with marked thought blocking and responses no eye contact laceration right wrist noted.. Patient vigilant irritable essentially refusing to speak with me. At the stomach feel patient does meet criteria for involuntary psychiatric hospitalization of the [employer] act thus I will cosign second opinion petition supporting Iterable Review of Systems All other systems reviewed negative except as stated in HPI PMFSH - History History Provided By: Patient - Medical History Medical History: Medical History (Last Reviewed 02/13/18 @ 17:50 by DINA Patel) Schizophrenia - Surgical History Surgical History: Surgical History (Last Reviewed 02/13/18 @ 17:50 by DINA Patel) No history of previous surgery - Tobacco History Second Hand Smoke Exposure: Yes Tobacco Use In Past 30 Days: Yes Smoking Status: Heavy tobacco smoker Tobacco Type: Cigarettes - Alcohol History How Often Do You Have a Drink Containing Alcohol: Never - Substance Use History Substance History: Active Abuse - Travel History Recent Travel in the [facility] [place] Within the Last 8 Weeks: No Recent Travel Out of the Country Within the Last 8 Weeks: No - Immunization History Tetanus Immunization: <5 Years Hx Influenza Vaccine This Season: Yes Medications and Allergies Active Medications: Active Medications Acetaminophen (Tylenol) 650 mg PO Q4H PRN PRN Reason: PAIN 1-10 AND/OR FEVER >101F Al Hydrox/Mg Hydrox/Simethicone (Mag-Al Plus Susp Liq) 30 ml PO Q6H PRN PRN Reason: DYSPEPSIA Senna/Docusate Sodium (Symone-Colace) 1 tab PO BID FRANKLIN Last Admin: 02/13/18 23:42 Dose: Not Given Allergies Allergy/AdvReac Type Severity Reaction Status Date / Time No Known Allergies Allergy Unverified 02/12/18 02:20 Home Medications Medication Instructions Recorded Confirmed Type fluphenazine HCl 30 mg PO DAILY 02/12/18 02/12/18 History Exam Vital signs: Vital Signs 02/13/18 20:00 Respiratory Rate 16 Narrative: Patient seen quietly on his bed on 2700 in no acute distress he is in no respiratory distress. Does not appear to be suffering any chest pain or abdominal pain. Patient with all 4 extremities without difficulty Mental Status Examination Appearance: Disheveled Consciousness: Alert Orientation: Person, Place (At least) Motor Activity: Normal gait Speech: Unremarkable, Other (Marked thought blocking Ivana and her responses as if responding to internal stimuli) Language: Other Fund of Knowledge: Adequate Attention and Concentration: Easily distracted Memory: Unremarkable Mood: Irritable, Other (Dysphoric) Affect: Other (Restricted, tearful at times) Thought Process & Associations: Circumstantial Thought Content: Hallucinations Hallucination Type: Other (Appears internally stimulated) Delusion Type: Other (Possible feelings of thought manipulation) Suicidal Ideation: No (Unreliable to contract for safety) Suicidal Plan: No Suicidal Intention: No Homicidal Ideation: No Homicidal Plan: No Homicidal Intention: No Insight: Poor Judgment: Poor Assessment and Plan - Assessment (1) Schizophrenia Code(s): F20.9 - Schizophrenia, unspecified Status: Acute (2) Cannabis abuse Code(s): F12.10 - Cannabis abuse, uncomplicated Status: Acute - Plan Plan: At this time patient does meet criteria for involuntary psychiatric hospitalization thus I will cosign second opinion petition supporting [employer] act Justification for Continued Inpatient Stay: At this time patient would decompensate if placed in a lower level of care Discharge Planning: To be determined Request Healthcare Surrogate/Guardian Advocate?: Yes (1) Schizophrenia Qualifiers: Schizophrenia type: undifferentiated schizophrenia Qualified Code(s): F20.3 - Undifferentiated schizophrenia
[2018-02-14] MEDS: Senna/Docusate Sodium 8.6/50 MG Tablet PO SCH (09:21)
--- NOTE | 2018-02-14 10:17 | P.PNPSY ---
Subjective Chief Complaint: [place] act Remarks: Patient seen and examined with counselor. Chart reviewed. Case discussed with nursing staff. Per nursing, patient refuses to keep dressing on his forearm wound. He has showered repeatedly, which is reportedly a coping mechanism for him. He has been intermittently tearful and confrontational/intrusive. Patient was found with cigarettes yesterday and there is some concern from nursing staff that these were provided to him during visitation. The patient will consequently be searched for contraband after visitation. Case discussed in treatment team. On my examination today, the patient remains tearful and dysphoric. He is evasive when asked questions about psychotic symptoms but denies any suicidal or homicidal ideation. Thought blocking is noted. Insight into mental illness remains poor. He continues to insist that his presenting injury was accidental and not suicidal in nature. No acute physical complaints. Obtained collateral information from patient's mother by telephone. She reports that the patient had been doing well and was taken off of antipsychotic medications a few months ago. He apparently became more symptomatic and was taken to a new provider who started patient on a new medication, although this was reportedly not efficacious. Mother believes that patient's presenting injury was suicidal in nature but does not believe that patient has a psychotic illness. She believes he is primarily depressed and does not want patient restarted on Prolixin as she feels that he does not need such a 'strong' medication. She is willing to serve as HCS. We discuss a trial of Seroquel with review of metabolic and movement disorder side effects, and she is agreeable to this agent. We discuss [address]. I spent ~10min in telephone patient with patient's mother. Patient refused vital signs this morning. Patient refused laboratories this morning. I have instructed the nurse to have the bill collector come around again to try to draw these labs. Review of Systems unobtainable due to mental condition Mental Status Examination Appearance: Disheveled Consciousness: Alert Orientation: Person, Place (At least) Motor Activity: Normal gait, Other (No motor abnormalities noted) Speech: Slow Language: Adequate Fund of Knowledge: Adequate Attention and Concentration: Easily distracted Memory: Unremarkable Mood: Irritable, Other (Dysphoric) Affect: Other (Restricted. Tearful.) Thought Process & Associations: Circumstantial Thought Content: Hallucinations, Thought blocking Hallucination Type: Other (Remains internally stimulated) Delusion Type: None Suicidal Ideation: No (Remains unreliable to contract for safety) Suicidal Plan: No Suicidal Intention: No Homicidal Ideation: No Homicidal Plan: No Homicidal Intention: No Insight: Poor Judgment: Poor Assessment and Plan - Assessment (1) Schizophrenia Code(s): F20.9 - Schizophrenia, unspecified Status: Acute (2) Cannabis abuse Code(s): F12.10 - Cannabis abuse, uncomplicated Status: Acute - Plan Plan: Start Seroquel 50 mg twice daily to target psychotic symptoms, although this agent may also be helpful for patient's dysphoria. Plan to titrate this agent to effect and as tolerated. Atarax as needed for anxiety. Melatonin as needed for sleep. Hospitalist and wound care input noted and appreciated. Continue to monitor on the inpatient unit. Continue other medications and care as ordered. Justification for Continued Inpatient Stay: Medication changes. Concern for impairment in safety. Risk for decompensation in less restrictive setting. Discharge Planning: Pending psychiatric stabilization. Request Healthcare Surrogate/Guardian Advocate?: Yes (1) Schizophrenia Qualifiers: Schizophrenia type: undifferentiated schizophrenia Qualified Code(s): F20.3 - Undifferentiated schizophrenia
--- NOTE | 2018-02-14 10:29 | P.TTN ---
- Patient Problems Problems: 1. Discharge planning 2. Medication compliance 3. Knowledge deficit 4. Lack of coping skills - Progress Toward Goals Provider Present: Dr. Carlin Caldwell Provider Input: Patient presents as psychotic, there is no one to consent for medications, patient needs to remain for further stabilization. Dr. Caldwell advise Tan to contact patient's mother to obtain collateral and more importantly to obtain consent for medications. Psychiatric Counselors Present: Tan Chun Jr., [facility] Psychiatric Therapist Input: Tan attempted to contact the patient's mother yesterday, without success, left a voicemail. Patient presents as unstable, no insight, with thought blocking, appearing internally stimulated. Group Spec/RT/OT/FELIZ Present: TRAY Lafleur - Documentation Teaching Recipient: Patient
[2018-02-14 13:15] LABS: Baso # (Auto) 0.1 th/mm3 (0.0-0.2); Baso % (Auto) 0.6 % (0.0-2.0); Eos % (Auto) 0.2 % (0.0-4.0); Hematocrit 45.8 % (39.0-51.0); Hemoglobin 15.9 gm/dL (13.0-17.0); Lymph # (Auto) 1.2 th/mm3 (1.0-4.8); Lymph % (Auto) 11.5 % (9.0-44.0); Mean Corpuscular HGB Conc 34.8 % (32.0-36.0); Mean Corpuscular Hemoglobin 31.6 pg (27.0-34.0); Mean Corpuscular Volume 90.6 fL (80.0-100.0); Mono # (Auto) 0.6 th/mm3 (0.0-0.9); Mono % (Auto) 5.9 % (0.0-8.0); Neut # (Auto) 8.2 th/mm3 (1.8-7.7); Neut % (Auto) 81.8 % (16.0-70.0); Platelet Count 218 th/mm3 (150-450); Red Blood Count 5.05 mil/mm3 (4.50-5.90); Red Cell Distribution Width 12.9 % (11.6-17.2); White Blood Count 10.1 th/mm3 (4.0-11.0)
--- NOTE | 2018-02-14 13:24 | P.PN ---
Subjective Interval history: Follow-up on patient with right wrist laceration. Patient seen and examined. Patient is been refusing to keep the wound care dressing on the right wrist. He also refused a tetanus shot yesterday. Attempted to discuss importance of both with the patient however he stated "I just want to go home" and turned away. Patient did allow me to look at the right wrist wound which does not appear infected. Discussed with nursing staff, no acute events noted. He is refusing lab draws. Physical Exam Vital signs: Vital Signs 02/13/18 20:00 Respiratory Rate 16 Narrative: GENERAL: This is a thin young well-developed well-nourished male patient in no acute distress. Awake and alert. Appears comfortable sitting in day room. SKIN: Right wrist laceration over volar aspect approx. 1.5 cm long by 2.5 cm width, no drainage. No evidence of infection. HEENT: Atraumatic. Normocephalic. Pupils equal and round. No scleral icterus. No injection or drainage. No nasal bleeding or discharge. Mucous membranes pink and moist. NECK: Trachea midline. CARDIOVASCULAR: Regular rate and rhythm. RESPIRATORY: No accessory muscle use. Clear to auscultation. Breath sounds equal bilaterally. GASTROINTESTINAL: Abdomen soft, non-tender, nondistended. MUSCULOSKELETAL: Extremities without clubbing, cyanosis, or edema. No obvious deformities. NEUROLOGICAL: Awake and alert. CN II-XII grossly intact. Able to move all extremities spontaneously. Minimal speech. PSYCHIATRIC: Calm. Depressed affect. Judgment and insight poor. Assessment and Plan - Assessment (1) Laceration of right forearm Code(s): S51.811A - Laceration without foreign body of right forearm, initial encounter Status: Acute (2) Schizophrenia Code(s): F20.9 - Schizophrenia, unspecified Status: Acute (3) Cannabis abuse Code(s): F12.10 - Cannabis abuse, uncomplicated Status: Acute - Plan 23-year-old male admitted to psych unit under [place] act, history of schizophrenia. Apparently cut right forearm on a window, possibly self- inflicted. Schizophrenia Depression Suspected suicide attempt -Management per psychiatric team Right wrist laceration, patient refused sutures, removed Steri-Strips. No neurovascular involvement noted. Has intact sensation and movement of right hand, right radial pulses 2+. -Wound care consultation, recommendations noted. Continue with Versatel one dressing in place to R wrist laceration for 7 days and change or change as needed for dislodgement or saturation. Patient has been refusing to keep the dressing on. Also refused tetanus injection. Refusing lab draws. -Attempted to discuss with patient importance of treatment but patient not willing to listen. Advised patient to inform the nursing staff if he changes his mind and is agreeable to wound dressing and/or tetanus injection. -Right wrist lac with no e/o infection at this time. Continue to monitor wound for proper healing Cannabis abuse -Patient has been counseled DVT prophylaxis -Patient is ambulatory Patient appears stable from hospitalist standpoint. [facility] will sign off. Please reconsult if needed. Code Status: FULL Discussed Condition With: patient, nursing staff (2) Schizophrenia Qualifiers: Schizophrenia type: undifferentiated schizophrenia Qualified Code(s): F20.3 - Undifferentiated schizophrenia
[2018-02-14 13:44] LABS: Calcium 8.9 mg/dL (8.5-10.1); Carbon Dioxide 21.7 meq/L (21.0-32.0); Potassium 4.2 meq/L (3.5-5.1)
[2018-02-14 13:50] LABS: Chol/HDL Ratio 3.13 Ratio; HDL Cholesterol 36.1 mg/dL (40.0-60.0)
[2018-02-14 18:55] LABS: Hemoglobin A1c 5.2 % (4.3-6.0)
[2018-02-14] MEDS ORDERED: QUEtiapine 25 MG Tablet PO SCH (21:00)
[2018-02-15] MEDS: Senna/Docusate Sodium 8.6/50 MG Tablet PO SCH ×3 (04:29→21:26)
--- NOTE | 2018-02-15 08:20 | P.PNPSY ---
I was notified by phone by nurse Anahy ~4:15pm 02/14 that patient had eloped from the unit during fresh air break by pulling himself up with the basketball hoop in the atrium area. Nurse related that campus security and police had been notified to retrieve the patient. I instructed the nurse to inform family of this change in status. I further instructed nurse that upon patient's return to the unit he was to be placed on a 1:1 and to be restricted to the unit until further notice. This morning, 02/15, I have conducted an inspection of the atrium area with nurse email operations manager for possible means of escape. The atrium area will be closed until necessary modifications can be made to secure the atrium against further elopement, and nurse email operations manager will convey this instruction to staff. I have further discussed restrictions for the patient (1:1, restriction to unit, patient to be kept well away from main exit door on [address], i.e. not to venture past 2705 room) with nurse and sitter. Dr. Diaz will round on the patient today in advance of [address] hearing tomorrow as I will be out of the office.
--- NOTE | 2018-02-15 10:31 | P.TTN ---
- Patient Problems Problems: 1. Discharge planning 2. Medication compliance 3. Knowledge deficit 4. Lack of coping skills - Progress Toward Goals Provider Present: Dr. Hermilo Diaz, Dr. Carlin Caldwell Provider Input: Patient presents as psychotic, there is no one to consent for medications, patient needs to remain for further stabilization. Dr. Caldwell advise Tan to contact patient's mother to obtain collateral and more importantly to obtain consent for medications. February 15, 2018 patient is new to Dr. Diaz. Psychiatric Counselors Present: Tan Chun Jr., [facility] Psychiatric Therapist Input: Tan attempted to contact the patient's mother yesterday, without success, left a voicemail. Patient presents as unstable, no insight, with thought blocking, appearing internally stimulated. February 15, 2018 Dr. iDaz is taking over the case is not familiar with the patient. Patient escaped from the unit yesterday and was returned by local PD last night. Mother is consenting for medications. Counselor spoke to mother and father, both will be in attendance at [address] in the morning. Mother will be advocating for patient discharge, while the father will be advocating for further stabilization. Patient is on a one-to-one, attends select groups, Dr. Diaz will titrate medications. Group Spec/RT/OT/FELIZ Present: TRAY Lafleur (Attends select groups) - Documentation Teaching Recipient: Patient
--- NOTE | 2018-02-15 14:14 | P.PNPSY ---
Subjective Chief Complaint: [place] act Remarks: Patient seen in day room with nurse wse, chart reviewed, patient discussed with nursing staff, Dr. Caldwell initial H&P and progress notes reviewed today patient sitting in the corner of dayroom quiet somewhat vigilant. With me patient focusing on discharge when he did go home. He denies suicidality. He is vague about any auditory hallucinations as they are his voice in his head. He is on no psychotropics at the present time. He is unable to give any specific reason for the elopement yesterday. Patient to [facility] tomorrow Review of Systems All other systems reviewed negative except as stated in HPI Mental Status Examination Appearance: Disheveled Consciousness: Alert Orientation: Person, Place (At least) Motor Activity: Normal gait, Other (No motor abnormalities noted) Speech: Slow Language: Adequate Fund of Knowledge: Adequate Attention and Concentration: Easily distracted Memory: Unremarkable Mood: Irritable, Other (Dysphoric) Affect: Other (Restricted. Tearful.) Thought Process & Associations: Circumstantial Thought Content: Hallucinations, Thought blocking Hallucination Type: Other (Remains internally stimulated) Delusion Type: None Suicidal Ideation: No (Remains unreliable to contract for safety) Suicidal Plan: No Suicidal Intention: No Homicidal Ideation: No Homicidal Plan: No Homicidal Intention: No Insight: Poor Judgment: Poor Assessment and Plan - Assessment (1) Schizophrenia Code(s): F20.9 - Schizophrenia, unspecified Status: Acute (2) Cannabis abuse Code(s): F12.10 - Cannabis abuse, uncomplicated Status: Acute - Plan Plan: Patient continues to meet criteria patient to [facility] tomorrow psychotic with little insight into his disease. Justification for Continued Inpatient Stay: At this time patient would decompensate if placed in a lower level of care Discharge Planning: To be determined Request Healthcare Surrogate/Guardian Advocate?: Yes (1) Schizophrenia Qualifiers: Schizophrenia type: undifferentiated schizophrenia Qualified Code(s): F20.3 - Undifferentiated schizophrenia
[2018-02-15] MEDS ORDERED: Haloperidol Inj 5 MG/ML Ampul ONE (17:56)
[2018-02-15] MEDS ORDERED: Haloperidol Inj 5 MG/ML Ampul IM ONE (18:00)
[2018-02-15] MEDS: QUEtiapine 25 MG Tablet PO SCH (21:12)
[2018-02-15] MEDS: Melatonin 5 MG Tablet PO PRN (21:12)
--- NOTE | 2018-02-15 21:46 | ECG ---
Date Performed: 02/14/2018 Time Performed: 13:26:31 PTAGE: 23 years EKG: Sinus rhythm POSSIBLE RIGHT VENTRICULAR CONDUCTION DELAY ST ELEVATION, PROBABLY EARLY REPOLARIZATION TALL T-WAVES , SUGGESTS HYPERKALEMIA TYPE 3 BRUGADA PATTERN (NON-DIAGNOSTIC) ABNORMAL ECG PREVIOUS TRACING : 08/26/2017 10.38 Since the previous tracing, no significant change noted DOCTOR: Subhash Banegas Interpretating Date/Time 02/15/2018 21:45:46
[2018-02-16] MEDS: QUEtiapine 25 MG Tablet PO SCH ×2 (08:13→20:21)
[2018-02-16] MEDS: Senna/Docusate Sodium 8.6/50 MG Tablet PO SCH ×2 (08:13→20:21)
--- NOTE | 2018-02-16 16:08 | P.PNPSY ---
Subjective Chief Complaint: [place] act Remarks: Patient seen [place] patient's mother and father also present. [facility] to be guardian advocate. Patient remained delusional with no insight into his disease during the court hearing. There is also significant animosity noted between his parents who are in the midst of a divorce. It is the opinion of the court chepe allowing either parent to be guardian advocate will cause significant conflict with this entire situation thus the [facility] was she was not to be guardian advocate for now continue treatment of interest the patient asked the court if he could just use marijuana as his treatment Review of Systems All other systems reviewed negative except as stated in HPI Mental Status Examination Appearance: Disheveled Consciousness: Alert Orientation: Person, Place (At least) Motor Activity: Normal gait, Other (No motor abnormalities noted) Speech: Slow Language: Adequate Fund of Knowledge: Adequate Attention and Concentration: Easily distracted Memory: Unremarkable Mood: Irritable, Other (Dysphoric) Affect: Other (Restricted. Tearful.) Thought Process & Associations: Circumstantial Thought Content: Hallucinations, Thought blocking Hallucination Type: Other (Remains internally stimulated) Delusion Type: None Suicidal Ideation: No (Remains unreliable to contract for safety) Suicidal Plan: No Suicidal Intention: No Homicidal Ideation: No Homicidal Plan: No Homicidal Intention: No Insight: Poor Judgment: Poor Assessment and Plan - Assessment (1) Schizophrenia Code(s): F20.9 - Schizophrenia, unspecified Status: Acute (2) Cannabis abuse Code(s): F12.10 - Cannabis abuse, uncomplicated Status: Acute - Plan Plan: Patient retained by [facility] as guardian advocate patient remains quite psychotic and delusional Justification for Continued Inpatient Stay: At this time patient would decompensate a place to the lower level of care Discharge Planning: To be determined Request Healthcare Surrogate/Guardian Advocate?: Yes (1) Schizophrenia Qualifiers: Schizophrenia type: undifferentiated schizophrenia Qualified Code(s): F20.3 - Undifferentiated schizophrenia
[2018-02-17] MEDS: QUEtiapine 25 MG Tablet PO SCH ×3 (08:35→17:30)
[2018-02-17] MEDS: Senna/Docusate Sodium 8.6/50 MG Tablet PO SCH ×2 (08:35→22:53)
--- NOTE | 2018-02-17 16:01 | P.PNPSY ---
Subjective Chief Complaint: [place] act Remarks: Patient seen in the [place]ade with nurse Evi, chart reviewed, patient compliant medication. Patient showing little insight or ability to process the [place] [address] hearing from yesterday. When I attempted to discuss with him the contentiousness shown by his parents and how it is affecting him he became tearful and in denial. He denies mental illness says all he needs for treatment is marijuana. He is showing a quite childlike attitude towards this becoming tearful and crying stating he just wants to go home. Patient remained psychotic paranoid with no insight. We will increase his Seroquel to 50 mg 8 AM and 4 PM and 100 mg at at bedtime Review of Systems All other systems reviewed negative except as stated in HPI Mental Status Examination Appearance: Appropriate, Disheveled Consciousness: Alert Orientation: Person, Place (At least) Motor Activity: Normal gait, Other (No motor abnormalities noted) Speech: Slow Language: Adequate Fund of Knowledge: Adequate Attention and Concentration: Easily distracted Memory: Unremarkable Mood: Sad (Labile and crying), Irritable, Other (Dysphoric) Affect: Other (Somewhat increased range and intensity) Thought Process & Associations: Circumstantial Thought Content: Hallucinations, Thought blocking Hallucination Type: Other (Remains internally stimulated) Delusion Type: None Suicidal Ideation: No (Remains unreliable to contract for safety) Suicidal Plan: No Suicidal Intention: No Homicidal Ideation: No Homicidal Plan: No Homicidal Intention: No Insight: Poor Judgment: Poor Assessment and Plan - Assessment (1) Schizophrenia Code(s): F20.9 - Schizophrenia, unspecified Status: Acute (2) Cannabis abuse Code(s): F12.10 - Cannabis abuse, uncomplicated Status: Acute - Plan Plan: Patient remained psychotic delusional tearful with no insight. She medication adjustment above Justification for Continued Inpatient Stay: At this time patient would decompensate a place to a lower level of care Discharge Planning: To be determined Request Healthcare Surrogate/Guardian Advocate?: Yes (1) Schizophrenia Qualifiers: Schizophrenia type: undifferentiated schizophrenia Qualified Code(s): F20.3 - Undifferentiated schizophrenia
[2018-02-17] MEDS ORDERED: QUEtiapine 100 MG Tablet PO SCH (21:00)
[2018-02-18] MEDS: Senna/Docusate Sodium 8.6/50 MG Tablet PO SCH ×2 (09:23→21:56)
[2018-02-18] MEDS: QUEtiapine 25 MG Tablet PO SCH (09:23)
--- NOTE | 2018-02-18 14:57 | P.PNPSY ---
Subjective Chief Complaint: Guerrier act Remarks: Patient was seen and case discussed with nursing. Patient is very oppositional today. He is refusing his medications and is refusing simple requests throughout the day. He is labile and internally stimulated. Insight is very poor denying and need for medication. I spoke with Dr. Diaz and he suggested kamille Armstrong with IM backup. His legal status was reviewed and he has a court appointed guardian making his medical decisions. Nursing will attempt to make that call to get consent. Patient continues to take off his Band-Aid for his wound and we will order bacitracin ointment and get a wound care consult. Mental Status Examination Appearance: Appropriate, Disheveled Consciousness: Alert Orientation: Person, Place (At least) Motor Activity: Normal gait, Other (No motor abnormalities noted) Speech: Slow Language: Adequate Fund of Knowledge: Adequate Attention and Concentration: Easily distracted Memory: Unremarkable Mood: Sad (Labile and crying), Oppositional, Irritable, Other (Dysphoric) Affect: Other (Somewhat increased range and intensity) Thought Process & Associations: Circumstantial Thought Content: Hallucinations, Thought blocking Hallucination Type: Other (Remains internally stimulated) Delusion Type: None Suicidal Ideation: No (Remains unreliable to contract for safety) Suicidal Plan: No Suicidal Intention: No Homicidal Ideation: No Homicidal Plan: No Homicidal Intention: No Insight: Poor Judgment: Poor Assessment and Plan - Assessment (1) Schizophrenia Code(s): F20.9 - Schizophrenia, unspecified Status: Acute (2) Cannabis abuse Code(s): F12.10 - Cannabis abuse, uncomplicated Status: Acute - Plan Plan: See HPI Justification for Continued Inpatient Stay: Patient would decompensate in a less restrictive setting Request Healthcare Surrogate/Guardian Advocate?: Yes (1) Schizophrenia Qualifiers: Schizophrenia type: undifferentiated schizophrenia Qualified Code(s): F20.3 - Undifferentiated schizophrenia
[2018-02-19] MEDS: Senna/Docusate Sodium 8.6/50 MG Tablet PO SCH ×2 (09:03→20:25)
--- NOTE | 2018-02-19 11:22 | P.PNPSY ---
Subjective Chief Complaint: Guerrier act Remarks: Patient was seen and case discussed with nursing. He is less labile and oppositional today. He is agreeable to p.o. medication but that she also seeking behavior jiggling the doorknob. Insight remains very poor and he continues to believe he does not have a psychotic disorder. He is tolerating the Geodon well without side effects. Continues to deny auditory or visual hallucinations Mental Status Examination Appearance: Appropriate, Disheveled Consciousness: Vigilant Orientation: Person, Place (At least) Motor Activity: Normal gait, Other (No motor abnormalities noted) Speech: Slow Language: Adequate Fund of Knowledge: Adequate Attention and Concentration: Easily distracted Memory: Unremarkable Mood: Sad (Labile and crying), Oppositional, Irritable, Other (Dysphoric) Affect: Other (Irritable) Thought Process & Associations: Tangential Thought Content: Thought blocking Hallucination Type: Other (Remains internally stimulated) Delusion Type: None Suicidal Ideation: No (Remains unreliable to contract for safety) Suicidal Plan: No Suicidal Intention: No Homicidal Ideation: No Homicidal Plan: No Homicidal Intention: No Insight: Poor Judgment: Poor Assessment and Plan - Assessment (1) Schizophrenia Code(s): F20.9 - Schizophrenia, unspecified Status: Acute (2) Cannabis abuse Code(s): F12.10 - Cannabis abuse, uncomplicated Status: Acute - Plan Plan: Continue current treatment plan Justification for Continued Inpatient Stay: Patient would decompensate in a less restrictive setting Request Healthcare Surrogate/Guardian Advocate?: Yes (1) Schizophrenia Qualifiers: Schizophrenia type: undifferentiated schizophrenia Qualified Code(s): F20.3 - Undifferentiated schizophrenia
[2018-02-20] MEDS: Senna/Docusate Sodium 8.6/50 MG Tablet PO SCH ×2 (09:50→20:25)
--- NOTE | 2018-02-20 14:23 | P.PNPSY ---
Subjective Chief Complaint: Guerrier act Remarks: Patient seen and wade with nurse Richey, chart reviewed, patient compliant medication. Patient continues paranoid vigilant perseverating and focusing on wanting to be discharged today continues to deny mental illness states she really was and why he would see a psychiatrist in the community is because I told him to. For now will increase his Geodon to 60 mg twice daily and also offer Vistaril 50 mg I am every 6 hours for anxiety Review of Systems All other systems reviewed negative except as stated in HPI Mental Status Examination Appearance: Appropriate Consciousness: Vigilant Orientation: Person, Place (At least) Motor Activity: Normal gait Speech: Rapid, Hesitant Language: Adequate, Perseveration Fund of Knowledge: Adequate Attention and Concentration: Easily distracted Memory: Unremarkable Mood: Sad (Labile and crying), Oppositional, Irritable, Other (Dysphoric) Affect: Other (Irritable) Thought Process & Associations: Disorganized, Tangential Thought Content: Thought blocking Hallucination Type: Other (Remains internally stimulated) Delusion Type: None Suicidal Ideation: No (Remains unreliable to contract for safety) Suicidal Plan: No Suicidal Intention: No Homicidal Ideation: No Homicidal Plan: No Homicidal Intention: No Insight: Poor Judgment: Poor Assessment and Plan - Assessment (1) Schizophrenia Code(s): F20.9 - Schizophrenia, unspecified Status: Acute (2) Cannabis abuse Code(s): F12.10 - Cannabis abuse, uncomplicated Status: Acute - Plan Plan: Patient continues psychotic delusional quite vigilant C medication adjustments above Justification for Continued Inpatient Stay: At this time patient would decompensate a place to the lower level of care Discharge Planning: To be determined perhaps with 1 of his parents Request Healthcare Surrogate/Guardian Advocate?: Yes (1) Schizophrenia Qualifiers: Schizophrenia type: undifferentiated schizophrenia Qualified Code(s): F20.3 - Undifferentiated schizophrenia
[2018-02-21] MEDS: Senna/Docusate Sodium 8.6/50 MG Tablet PO SCH ×2 (09:18→21:34)
--- NOTE | 2018-02-21 13:56 | P.PNPSY ---
Subjective Chief Complaint: Guerrier act Remarks: Patient seen in day room with nurse Richey, chart reviewed, patient reluctantly compliant medication. Patient continues agitated anxious labile intrusive focusing on discharge showing no insight into his disease little insight into the process of attempting to gain control of his mental health issues. He feels he has no mental illness and that he can leave and to smoke marijuana. He became more anxious with me showing no insight walked away and then ran towards the exit door slamming on the door necessitating him going into the short haul. At the stomach feel patient does show some significant impulse control with this we will ask permission from the guardian advocate to initiate Tegretol treatment started 100 mg twice daily of the chewable tablet we will continue the other medications no change at this time Review of Systems All other systems reviewed negative except as stated in HPI Mental Status Examination Appearance: Appropriate Consciousness: Vigilant Orientation: Person, Place (At least) Motor Activity: Normal gait Speech: Rapid, Hesitant Language: Adequate, Perseveration Fund of Knowledge: Adequate Attention and Concentration: Easily distracted Memory: Unremarkable Mood: Sad (Labile and crying), Oppositional, Irritable, Other (Dysphoric) Affect: Other (Marked increased range and intensity) Thought Process & Associations: Disorganized, Tangential Thought Content: Bizarre thinking, Thought blocking Hallucination Type: Other (Remains internally stimulated) Delusion Type: None, Paranoid Suicidal Ideation: No (Remains unreliable to contract for safety) Suicidal Plan: No Suicidal Intention: No Homicidal Ideation: No Homicidal Plan: No Homicidal Intention: No Insight: Poor Judgment: Poor Assessment and Plan - Assessment (1) Schizophrenia Code(s): F20.9 - Schizophrenia, unspecified Status: Acute (2) Cannabis abuse Code(s): F12.10 - Cannabis abuse, uncomplicated Status: Acute - Plan Plan: Patient remains quite psychotic delusional paranoid see medication adjustments above. Patient continues to be quite a high risk for elopement for now we will refrain from allowing her visiting and monitor him with the one-to-one Justification for Continued Inpatient Stay: At this time patient would decompensate a place in lower level of care Discharge Planning: To be determined Request Healthcare Surrogate/Guardian Advocate?: Yes (1) Schizophrenia Qualifiers: Schizophrenia type: undifferentiated schizophrenia Qualified Code(s): F20.3 - Undifferentiated schizophrenia
--- NOTE | 2018-02-21 14:47 | P.TTN ---
- Patient Problems Problems: 1. Discharge planning 2. Medication compliance 3. Knowledge deficit 4. Lack of coping skills - Progress Toward Goals Provider Present: Dr. Hermilo Diaz, Dr. Carlin Caldwell Provider Input: Patient presents as psychotic, there is no one to consent for medications, patient needs to remain for further stabilization. Dr. Caldwell advise Tan to contact patient's mother to obtain collateral and more importantly to obtain consent for medications. 02-21-18 patient remains unstable , no insight, discharge focused and requires further stabilization. Patient has made no progress toward goals. February 15, 2018 patient is new to Dr. Diaz. Psychiatric Counselors Present: Tan Chun Jr., [facility] Psychiatric Therapist Input: Tan attempted to contact the patient's mother yesterday, without success, left a voicemail. Patient presents as unstable, no insight, with thought blocking, appearing internally stimulated. February 15, 2018 Dr. Diaz is taking over the case is not familiar with the patient. Patient escaped from the unit yesterday and was returned by local PD last night. Mother is consenting for medications. Counselor spoke to mother and father, both will be in attendance at [employer] court in the morning. Mother will be advocating for patient discharge, while the father will be advocating for further stabilization. Patient is on a one-to-one, attends select groups, Dr. Diaz will titrate medications. January 21, 2018 patient extremely high risk for elopement, escape focused, discharge focused, states medical marijuana is the only medication that will help to stabilize him in the long run. Patient reports he has no intent on being med compliant upon discharge. Group Spec/RT/OT/FELIZ Present: TRAY Lafleur (Attends select groups) - Documentation Teaching Recipient: Patient
[2018-02-21] MEDS: carBAMazepine 100 MG Chewable Tablets PO SCH (20:35)
[2018-02-22] MEDS: Senna/Docusate Sodium 8.6/50 MG Tablet PO SCH ×2 (08:20→21:31)
[2018-02-22] MEDS: carBAMazepine 100 MG Chewable Tablets PO SCH ×2 (08:20→21:31)
--- NOTE | 2018-02-22 10:05 | P.CON ---
History of Present Illness Service: Hand surgery Consult date: 02/21/18 Primary Care Provider: No Primary Care Physician History of Present Illness: History obtained from patient, patient's nurse, and chart as patient poor historian Mr. Keys is a 23-year-old male with a history of schizophreniform disorder who presents in transfer from [facility] under a Guerrier act by law enforcement. Documentation from outside hospital reviewed. Patient was brought into the hospital with cut to right forearm. According to collateral obtained by ED provider from patient's father, patient seemed depressed. When the parents went out for dinner, patient reportedly came to the restaurant with his arms covered, found to have laceration. Patient refused suture repair of laceration in the ED. Patient seen and examined with counselor. Chart reviewed. Case discussed with nursing staff. On my examination today, the patient presents as disheveled. He insists that the laceration to the right hand was sustained trying to get inside his house, saying that he tripped into a window. He denies any suicidal or homicidal ideation, intent or plan saying "of course not." He denies audiovisual hallucinations, but only after a pause. He does appears somewhat internally preoccupied. Past psychiatric history: The patient has a history of schizophreniform disorder. He reports that he follows with an outpatient provider name My in [place] but takes no psychotropic medications. Patient says "I do not need medications." He cannot say when he last took any psychotropic medications. He is somewhat evasive when I ask about interval psychiatric admissions between current admission and most recent admission at [facility]. He denies a history of suicide attempts. Family history: The patient denies any family history of mental illness. Chemical dependency history: The patient reports use of cannabis saying it helps him sleep. Social history: The patient lives with his parents. He does not work. He is not presently in school. He has a girlfriend. He has no children. He denies any access to guns or firearms. Hand surgery consulted for volar wrist laceration. Patient denies deficits or dysfunction. He endorses normal sensation Review of Systems All other systems reviewed negative except as stated in HPI Medication list reviewed PMFSH - History History Provided By: Patient - Medical History Medical History: Medical History (Last Updated 02/12/18 @ 02:25 by Elvin Rosales) Schizophrenia - Surgical History Surgical History: Surgical History (Last Updated 02/12/18 @ 02:25 by Elvin Rosales) No history of previous surgery - Tobacco History Second Hand Smoke Exposure: Yes Tobacco Use In Past 30 Days: Yes Smoking Status: Heavy tobacco smoker Tobacco Type: Cigarettes - Alcohol History How Often Do You Have a Drink Containing Alcohol: Never - Substance Use History Substance History: Active Abuse [facility] - History History Provided By: Patient - Medical History Medical History: Medical History (Last Reviewed 02/13/18 @ 17:50 by DINA Patel) Schizophrenia - Surgical History Surgical History: Surgical History (Last Reviewed 02/13/18 @ 17:50 by DINA Patel) No history of previous surgery - Tobacco History Second Hand Smoke Exposure: Yes Tobacco Use In Past 30 Days: Yes Smoking Status: Heavy tobacco smoker Tobacco Type: Cigarettes - Alcohol History How Often Do You Have a Drink Containing Alcohol: Never - Substance Use History Substance History: Active Abuse - Travel History Recent Travel in the [facility] Within the Last 8 Weeks: No Recent Travel Out of the Country Within the Last 8 Weeks: No - Immunization History Tetanus Immunization: <5 Years Hx Influenza Vaccine This Season: Yes Medications and Allergies Active Medications: Active Medications Acetaminophen (Tylenol) 650 mg PO Q4H PRN PRN Reason: PAIN 1-10 AND/OR FEVER >101F Al Hydrox/Mg Hydrox/Simethicone (Mag-Al Plus Susp Liq) 30 ml PO Q6H PRN PRN Reason: DYSPEPSIA Bacitracin (Baciguent Oint) 1 applicatio TOPICAL TID [facility] Last Admin: 02/22/18 08:20 Dose: Not Given Carbamazepine (Tegretol Chewable) 100 mg PO BID [facility] Last Admin: 02/22/18 08:20 Dose: Not Given Hydroxyzine HCl (Atarax) 50 mg PO Q6H PRN PRN Reason: ANXIETY Last Admin: 02/18/18 21:56 Dose: 50 mg Hydroxyzine HCl (Vistaril Inj) 50 mg IM Q6H PRN PRN Reason: ANXIETY Melatonin (Melatonin) 5 mg PO HS PRN PRN Reason: INSOMNIA Last Admin: 02/15/18 21:12 Dose: 5 mg Senna/Docusate Sodium (Symone-Colace) 1 tab PO BID [facility] Last Admin: 02/22/18 08:20 Dose: Not Given Ziprasidone (Geodon Inj) 20 mg IM Q12H PRN PRN Reason: REFUSAL OF PO DOSE Ziprasidone (Geodon) 60 mg PO BIDPC [facility] Last Admin: 02/22/18 08:19 Dose: 60 mg Allergies Allergy/AdvReac Type Severity Reaction Status Date / Time No Known Allergies Allergy Unverified 02/12/18 02:20 Home Medications Medication Instructions Recorded Confirmed Type fluphenazine HCl 30 mg PO DAILY 02/12/18 02/12/18 History Physical Exam Narrative: Distal volar wrist with roughly 2 cm superficial laceration No vital structures apparent and open wound All flexors/extensors intact by exam No wrist deviation on wrist flexion Sensation intact light touch M/R/U/palmar cutaneous of the median and ulnar No signs of infection Assessment and Plan - Assessment (1) Laceration of right forearm Code(s): S51.811A - Laceration without foreign body of right forearm, initial encounter Status: Acute - Plan 23-year-old male admitted under Guerrier act for suicidal attempt, with open volar wrist wound Wound very superficial and with signs of healing No deficits appreciated Please call with questions/concerns
--- NOTE | 2018-02-22 10:28 | P.TTN ---
- Patient Problems Problems: 1. Discharge planning 2. Medication compliance 3. Knowledge deficit 4. Lack of coping skills - Progress Toward Goals Provider Present: Dr. Hermilo Diaz, Dr. Carlin Caldwell Provider Input: Patient presents as psychotic, there is no one to consent for medications, patient needs to remain for further stabilization. Dr. Caldwell advise Tan to contact patient's mother to obtain collateral and more importantly to obtain consent for medications. 02-21-18 patient remains unstable , no insight, discharge focused and requires further stabilization. Patient has made no progress toward goals. February 15, 2018 patient is new to Dr. Diaz. February 22, 2018 Dr. Diaz is titrating medications, patient needs to remain for further stabilization. Psychiatric Counselors Present: aTn Chun Jr., [facility] Psychiatric Therapist Input: Tan attempted to contact the patient's mother yesterday, without success, left a voicemail. Patient presents as unstable, no insight, with thought blocking, appearing internally stimulated. February 15, 2018 Dr. Diaz is taking over the case is not familiar with the patient. Patient escaped from the unit yesterday and was returned by local PD last night. Mother is consenting for medications. Counselor spoke to mother and father, both will be in attendance at [employer] court in the morning. Mother will be advocating for patient discharge, while the father will be advocating for further stabilization. Patient is on a one-to-one, attends select groups, Dr. Diaz will titrate medications. January 21, 2018 patient extremely high risk for elopement, escape focused, discharge focused, states medical marijuana is the only medication that will help to stabilize him in the long run. Patient reports he has no intent on being med compliant upon discharge. Patient is hyper focused on discharge, patient's does not appear to be making any progress toward his treatment goals at this time. Patient maintains that he will not take medications upon discharge. Patient remains adamant that marijuana is the only medicine that will help to treat his schizoaffective disorder. Group Spec/RT/OT/FELIZ Present: TRAY Lafleur (Attends select groups. February 22, 2018 patient attends select groups.) - Documentation Teaching Recipient: Patient
--- NOTE | 2018-02-22 14:59 | P.PNPSY ---
Subjective Chief Complaint: Guerrier act Remarks: Patient seen in his room with sitter. Chart reviewed, patient refusing the Tegretol chewable tablets though permission has been given by the guardian advocate. Patient compliant with his Geodon. We will increase Geodon 80 mg twice daily. Patient continues to perseverate on discharge. Patient continues to deny mental illness denies need for any medication that all he needs is to be treated with his marijuana when he leaves here. For now continue treatment medication adjustment as mentioned Review of Systems All other systems reviewed negative except as stated in HPI Mental Status Examination Appearance: Appropriate Consciousness: Vigilant Orientation: Person, Place (At least) Motor Activity: Normal gait Speech: Rapid, Hesitant Language: Adequate, Perseveration Fund of Knowledge: Adequate Attention and Concentration: Easily distracted Memory: Unremarkable Mood: Angry, Sad (Labile and crying), Oppositional, Irritable, Other (Dysphoric) Affect: Other (Marked increased range and intensity) Thought Process & Associations: Disorganized, Tangential Thought Content: Bizarre thinking, Thought blocking Hallucination Type: Other (Remains internally stimulated) Delusion Type: None, Paranoid Suicidal Ideation: No (Remains unreliable to contract for safety) Suicidal Plan: No Suicidal Intention: No Homicidal Ideation: No Homicidal Plan: No Homicidal Intention: No Insight: Poor Judgment: Poor Assessment and Plan - Assessment (1) Schizophrenia Code(s): F20.9 - Schizophrenia, unspecified Status: Acute (2) Cannabis abuse Code(s): F12.10 - Cannabis abuse, uncomplicated Status: Acute - Plan Plan: Patient remains quite paranoid psychotic delusional with no insight into his disease. Continues markedly resistant to medications refusing the Tegretol but continuing to accept the Geodon Justification for Continued Inpatient Stay: At this time patient would decompensate a place to a lower level of care Discharge Planning: To be determined Request Healthcare Surrogate/Guardian Advocate?: Yes (1) Schizophrenia Qualifiers: Schizophrenia type: undifferentiated schizophrenia Qualified Code(s): F20.3 - Undifferentiated schizophrenia
[2018-02-23] MEDS: carBAMazepine 100 MG Chewable Tablets PO SCH ×2 (08:18→20:24)
[2018-02-23] MEDS: Senna/Docusate Sodium 8.6/50 MG Tablet PO SCH (08:19)
--- NOTE | 2018-02-23 13:43 | P.PNPSY ---
Subjective Chief Complaint: Guerrier act Remarks: Patient seen in his room on 2700 with floor staff, chart reviewed, patient compliant with the Geodon, still refusing the Tegretol. He is somewhat drowsy and napping today but arousable continues to focus on discharge denying need for medication. Though it is not quite as irritable and labile today. For now continue treatment Review of Systems All other systems reviewed negative except as stated in HPI Mental Status Examination Appearance: Appropriate Consciousness: Vigilant Orientation: Person, Place (At least) Motor Activity: Normal gait Speech: Rapid, Hesitant Language: Adequate, Perseveration Fund of Knowledge: Adequate Attention and Concentration: Easily distracted Memory: Unremarkable Mood: Angry, Sad (Labile and crying), Oppositional, Irritable, Other (Dysphoric) Affect: Other (Marked increased range and intensity) Thought Process & Associations: Disorganized, Tangential Thought Content: Bizarre thinking, Thought blocking Hallucination Type: Other (Remains internally stimulated) Delusion Type: None, Paranoid Suicidal Ideation: No (Remains unreliable to contract for safety) Suicidal Plan: No Suicidal Intention: No Homicidal Ideation: No Homicidal Plan: No Homicidal Intention: No Insight: Poor Judgment: Poor Assessment and Plan - Assessment (1) Schizophrenia Code(s): F20.9 - Schizophrenia, unspecified Status: Acute (2) Cannabis abuse Code(s): F12.10 - Cannabis abuse, uncomplicated Status: Acute - Plan Plan: Patient continues psychotic delusional paranoid with mixed compliance medication Justification for Continued Inpatient Stay: At this time patient would decompensate a place to a lower level of care Discharge Planning: To be determined Request Healthcare Surrogate/Guardian Advocate?: Yes (1) Schizophrenia Qualifiers: Schizophrenia type: undifferentiated schizophrenia Qualified Code(s): F20.3 - Undifferentiated schizophrenia
[2018-02-24] MEDS: Senna/Docusate Sodium 8.6/50 MG Tablet PO SCH ×3 (02:20→23:35)
[2018-02-24] MEDS: carBAMazepine 100 MG Chewable Tablets PO SCH ×2 (08:53→20:37)
--- NOTE | 2018-02-24 14:09 | P.PNPSY ---
Subjective Chief Complaint: [place] act Remarks: Patient seen today and wade with nurse Hernandez, chart reviewed, patient continues to refuse Tegretol, patient discussed with nurse. Patient continues to perseverate focus on discharge he continues to deny illness states all he needs this is marijuana. When I discussed with him the purpose of the goal of trial of Tegretol E voice that he understood that and that he was willing to do that. I then instructed nurse Mary to offer patient 100 mg chewable Tegretol 1 hours on the unit. Patient refused to take it. It has been noted by the staff that patient has not allowed occasionally to visit with parents both jointly and separately leading to confrontations and much drama between the parents. Thus at this time I will restrict patient to the unit with no off unit privileges no visiting privileges. I feel he is still Review of Systems All other systems reviewed negative except as stated in HPI Mental Status Examination Appearance: Appropriate Consciousness: Vigilant Orientation: Person, Place (At least) Motor Activity: Normal gait Speech: Rapid, Hesitant Language: Adequate, Perseveration Fund of Knowledge: Adequate Attention and Concentration: Easily distracted Memory: Unremarkable Mood: Angry, Sad (Labile and crying), Oppositional, Irritable, Other (Dysphoric) Affect: Other (Marked increased range and intensity) Thought Process & Associations: Disorganized, Tangential Thought Content: Bizarre thinking, Thought blocking Hallucination Type: Other (Remains internally stimulated) Delusion Type: None, Paranoid Suicidal Ideation: No (Remains unreliable to contract for safety) Suicidal Plan: No Suicidal Intention: No Homicidal Ideation: No Homicidal Plan: No Homicidal Intention: No Insight: Poor Judgment: Poor Assessment and Plan - Assessment (1) Schizophrenia Code(s): F20.9 - Schizophrenia, unspecified Status: Acute (2) Cannabis abuse Code(s): F12.10 - Cannabis abuse, uncomplicated Status: Acute - Plan Plan: Patient remained psychotic paranoid with mixed compliance medication. Continues to refuse Tegretol. We will I did lift the one-to-one observation we will keep him on close observations with no off unit privileges no visiting privileges due to the high risk for elopement Justification for Continued Inpatient Stay: At this time patient would decompensate a place to a lower level of care Discharge Planning: To be determined Request Healthcare Surrogate/Guardian Advocate?: Yes (1) Schizophrenia Qualifiers: Schizophrenia type: undifferentiated schizophrenia Qualified Code(s): F20.3 - Undifferentiated schizophrenia
[2018-02-25] MEDS: carBAMazepine 100 MG Chewable Tablets PO SCH ×2 (10:17→21:53)
[2018-02-25] MEDS: Senna/Docusate Sodium 8.6/50 MG Tablet PO SCH ×2 (10:17→21:53)
--- NOTE | 2018-02-25 16:57 | P.PNPSY ---
Subjective Chief Complaint: [place] act Remarks: Reviewed electronic medical records and discussed case with staff. Follow-up was conducted in the hallway with JOSE Richey present. Patient continues to refuse his Tegretol. Staff reports that earlier today he was observed sprinting down the wade however the door was closed she is unsure if it was an attempt to escape. He was given as needed Vistaril. He states that he has been making animal noises today and acting in a bizarre fashion. He states that he sleeping well and eating well. He is discharged focused but overall cooperative with the interview. Mental Status Examination Appearance: Appropriate Consciousness: Vigilant Orientation: Person, Place (At least) Motor Activity: Normal gait Speech: Rapid, Hesitant Language: Adequate, Perseveration Fund of Knowledge: Adequate Attention and Concentration: Easily distracted Memory: Unremarkable Mood: Angry, Sad (Labile and crying), Oppositional, Irritable, Other (Dysphoric) Affect: Other (Marked increased range and intensity) Thought Process & Associations: Disorganized, Tangential Thought Content: Bizarre thinking, Thought blocking Hallucination Type: Other (Remains internally stimulated) Delusion Type: None, Paranoid Suicidal Ideation: No (Remains unreliable to contract for safety) Suicidal Plan: No Suicidal Intention: No Homicidal Ideation: No Homicidal Plan: No Homicidal Intention: No Insight: Poor Judgment: Poor Assessment and Plan - Assessment (1) Schizophrenia Code(s): F20.9 - Schizophrenia, unspecified Status: Acute - Plan Plan: Patient will be reevaluated Tuesday by the attending psychiatrist. Continue with current treatment plan. Justification for Continued Inpatient Stay: Moving this patient to a less restrictive environment would likely result in decompensation. Request Healthcare Surrogate/Guardian Advocate?: Yes (1) Schizophrenia Qualifiers: Schizophrenia type: undifferentiated schizophrenia Qualified Code(s): F20.3 - Undifferentiated schizophrenia
[2018-02-25] MEDS: Melatonin 5 MG Tablet PO PRN (22:55)
[2018-02-26] MEDS: carBAMazepine 100 MG Chewable Tablets PO SCH ×2 (09:11→20:22)
[2018-02-26] MEDS: Senna/Docusate Sodium 8.6/50 MG Tablet PO SCH ×2 (09:11→20:21)
--- NOTE | 2018-02-26 15:10 | P.PNPSY ---
Subjective Chief Complaint: Schizophrenia Remarks: Reviewed electronic medical records and discussed case with staff. Follow-up was conducted in the patient's room with JOSE Richey present. Patient continues to refuse his Tegretol. Nurses report that he has been childlike, bizzare and acting like a "niga fighter." Eating and sleeping well. Denies AVH. Lack of concentration. He is noted to be a high risk for elopement. Review of Systems All other systems reviewed negative except as stated in HPI Mental Status Examination Appearance: Appropriate Consciousness: Vigilant Orientation: Person, Place (At least) Motor Activity: Normal gait Speech: Rapid, Hesitant Language: Adequate, Perseveration Fund of Knowledge: Adequate Attention and Concentration: Easily distracted Memory: Unremarkable Mood: Angry, Sad (Labile and crying), Oppositional, Irritable, Other (Dysphoric) Affect: Other (Marked increased range and intensity) Thought Process & Associations: Disorganized, Tangential Thought Content: Bizarre thinking, Thought blocking Hallucination Type: Other (Remains internally stimulated) Delusion Type: None, Paranoid Suicidal Ideation: No (Remains unreliable to contract for safety) Suicidal Plan: No Suicidal Intention: No Homicidal Ideation: No Homicidal Plan: No Homicidal Intention: No Insight: Poor Judgment: Poor Assessment and Plan - Assessment (1) Schizophrenia Code(s): F20.9 - Schizophrenia, unspecified Status: Acute - Plan Plan: Patient will be reevaluated Tuesday by the attending psychiatrist. Continue with current treatment plan. Justification for Continued Inpatient Stay: Moving patient to a less restrictive environment may result in his decompensation. Request Healthcare Surrogate/Guardian Advocate?: Yes
[2018-02-27] MEDS: Senna/Docusate Sodium 8.6/50 MG Tablet PO SCH ×2 (08:30→21:06)
[2018-02-27] MEDS: carBAMazepine 100 MG Chewable Tablets PO SCH ×2 (08:30→21:06)
[2018-02-27] MEDS ORDERED: Haloperidol Inj 5 MG/ML Ampul IM STA (16:08)
--- NOTE | 2018-02-27 16:08 | P.PNPSY ---
Subjective Chief Complaint: Schizophrenia Remarks: Patient seen and wade. Continues markedly distractible. Chart reviewed, patient compliant medication, staff also states noticed patient talking to himself. Again patient focuses on discharge. When I discussed with him the need for further medication management hopefully he would be willing to take in Starks orally in anticipation of in Starks sustain injection. He appears reluctant to do that. I will at this time increase the at bedtime Geodon to 120 mg. There is a finish the above dictation of the nurse came and informed me that the patient is now at the door pounding on the door attempting to escape. This time we will give patient ETO of Haldol 10 mg Ativan 2 mg Benadryl 50 mg IM Review of Systems All other systems reviewed negative except as stated in HPI Mental Status Examination Appearance: Appropriate Consciousness: Vigilant Orientation: Person, Place (At least) Motor Activity: Normal gait Speech: Rapid, Hesitant Language: Adequate, Perseveration Fund of Knowledge: Adequate Attention and Concentration: Easily distracted Memory: Unremarkable Mood: Angry, Sad (Labile and crying), Oppositional, Irritable, Other (Dysphoric) Affect: Other (Marked increased range and intensity) Thought Process & Associations: Disorganized, Tangential Thought Content: Bizarre thinking, Thought blocking Hallucination Type: Other (Remains internally stimulated) Delusion Type: None, Paranoid Suicidal Ideation: No (Remains unreliable to contract for safety) Suicidal Plan: No Suicidal Intention: No Homicidal Ideation: No Homicidal Plan: No Homicidal Intention: No Insight: Poor Judgment: Poor Assessment and Plan - Assessment (1) Schizophrenia Code(s): F20.9 - Schizophrenia, unspecified Status: Deleted (2) Cannabis abuse Code(s): F12.10 - Cannabis abuse, uncomplicated Status: Acute - Plan Plan: Patient remains quite psychotic paranoid with high risk of developing and escaping see medication adjustment above Justification for Continued Inpatient Stay: At this time patient would decompensate a place to a lower level of care Request Healthcare Surrogate/Guardian Advocate?: Yes (1) Schizophrenia Qualifiers: Schizophrenia type: undifferentiated schizophrenia Qualified Code(s): F20.3 - Undifferentiated schizophrenia
[2018-02-27] MEDS ORDERED: Haloperidol Inj 5 MG/ML Ampul ONE (16:10)
[2018-02-28] MEDS: carBAMazepine 100 MG Chewable Tablets PO SCH ×2 (08:33→20:23)
[2018-02-28] MEDS: Senna/Docusate Sodium 8.6/50 MG Tablet PO SCH ×2 (08:33→20:23)
--- NOTE | 2018-02-28 14:26 | P.PNPSY ---
Subjective Chief Complaint: Schizophrenia Remarks: Patient seen and wade with nurse Anahy. Chart reviewed. Patient discussed with nurse patient continues to refuse oral medications and has been receiving IM Geodon in its place. There is been no significant improvement in patient's psychosis delusions or behaviors. Patient did receive a ETO of Haldol and Ativan and Benadryl last night. After that injection he showed some improvement with his behavior and cooperation at this time I will discontinue all Geodon orders. Will start patient on Haldol elixir 5 mg p.o. twice daily if refuses he is to get the Haldol 5 mg IM in its place only with permission of the guardian advocate. We will also attempt to meet with patient's father over the next 2-3 days to discuss patient's behavior including the possibility that this young man might need long-term placement Review of Systems All other systems reviewed negative except as stated in HPI Mental Status Examination Appearance: Appropriate Consciousness: Vigilant Orientation: Person, Place (At least) Motor Activity: Normal gait Speech: Rapid, Hesitant Language: Adequate, Perseveration Fund of Knowledge: Adequate Attention and Concentration: Easily distracted Memory: Unremarkable Mood: Angry, Sad (Labile and crying), Oppositional, Irritable, Other (Dysphoric) Affect: Other (Marked increased range and intensity) Thought Process & Associations: Disorganized, Tangential Thought Content: Bizarre thinking, Thought blocking Hallucination Type: Other (Remains internally stimulated) Delusion Type: None, Paranoid Suicidal Ideation: No (Remains unreliable to contract for safety) Suicidal Plan: No Suicidal Intention: No Homicidal Ideation: No Homicidal Plan: No Homicidal Intention: No Insight: Poor Judgment: Poor Assessment and Plan - Assessment (1) Schizophrenia Code(s): F20.9 - Schizophrenia, unspecified Status: Deleted (2) Cannabis abuse Code(s): F12.10 - Cannabis abuse, uncomplicated Status: Acute - Plan Plan: Patient remains quite psychotic delusional paranoid escape seeking with no insight. He continues to state the only thing he needs to take it is his "medicinal marijuana". It appears she is not responding very well to the Geodon. We will discontinue the Geodon offer Haldol 5 mg p.o. of the elixir and its place and if refuses Haldol 5 mg IM only with permission of the guardian advocate Justification for Continued Inpatient Stay: At this time patient would decompensate if placed in a lower level of care Discharge Planning: To be determined Request Healthcare Surrogate/Guardian Advocate?: Yes (1) Schizophrenia Qualifiers: Schizophrenia type: undifferentiated schizophrenia Qualified Code(s): F20.3 - Undifferentiated schizophrenia
[2018-02-28] MEDS: Haloperidol Lactate Oral Conc 10 MG/5 ML UDC PO SCH ×2 (14:31→20:23)
[2018-02-28] MEDS: Haloperidol Inj 5 MG/ML Ampul IM SCH ×2 (14:53→20:28)
[2018-03-01] MEDS: Haloperidol Inj 5 MG/ML Ampul IM SCH ×2 (09:00→20:17)
[2018-03-01] MEDS: Haloperidol Lactate Oral Conc 10 MG/5 ML UDC PO SCH ×2 (09:32→20:15)
[2018-03-01] MEDS: carBAMazepine 100 MG Chewable Tablets PO SCH ×2 (09:32→20:16)
[2018-03-01] MEDS: Senna/Docusate Sodium 8.6/50 MG Tablet PO SCH ×2 (12:18→20:16)
--- NOTE | 2018-03-01 15:39 | P.PNPSY ---
Subjective Chief Complaint: Schizophrenia Remarks: Patient seen in day room with nurse Mary chart reviewed, patient trying mixed compliance patient sitting in the corner somewhat angry attitude he still firmly believes that the only medication to help him is marijuana and that her doctor has already prescribed it for him. However he has shown some compliance with the medication with much encouragement Review of Systems All other systems reviewed negative except as stated in HPI Mental Status Examination Appearance: Appropriate Consciousness: Vigilant Orientation: Person, Place (At least) Motor Activity: Normal gait Speech: Rapid, Hesitant Language: Adequate, Perseveration Fund of Knowledge: Adequate Attention and Concentration: Easily distracted Memory: Unremarkable Mood: Angry, Sad (Labile and crying), Oppositional, Irritable, Other (Dysphoric) Affect: Other (Marked increased range and intensity) Thought Process & Associations: Disorganized, Tangential Thought Content: Bizarre thinking, Thought blocking Hallucination Type: Other (Remains internally stimulated) Delusion Type: None, Paranoid Suicidal Ideation: No (Remains unreliable to contract for safety) Suicidal Plan: No Suicidal Intention: No Homicidal Ideation: No Homicidal Plan: No Homicidal Intention: No Insight: Poor Judgment: Poor Assessment and Plan - Assessment (1) Schizophrenia Code(s): F20.9 - Schizophrenia, unspecified Status: Deleted (2) Cannabis abuse Code(s): F12.10 - Cannabis abuse, uncomplicated Status: Acute - Plan Plan: Patient remains psychotic and delusional, with mixed compliance medication still no insight into his disease Justification for Continued Inpatient Stay: At this time patient would decompensate a place to a lower level of care Discharge Planning: To be determined Request Healthcare Surrogate/Guardian Advocate?: Yes (1) Schizophrenia Qualifiers: Schizophrenia type: undifferentiated schizophrenia Qualified Code(s): F20.3 - Undifferentiated schizophrenia
[2018-03-02] MEDS: Haloperidol Inj 5 MG/ML Ampul IM SCH ×2 (09:21→21:00)
[2018-03-02] MEDS: Haloperidol Lactate Oral Conc 10 MG/5 ML UDC PO SCH ×2 (09:33→20:57)
[2018-03-02] MEDS: carBAMazepine 100 MG Chewable Tablets PO SCH (09:34)
[2018-03-02] MEDS: Senna/Docusate Sodium 8.6/50 MG Tablet PO SCH ×2 (09:34→20:57)
--- NOTE | 2018-03-02 12:32 | P.PNPSY ---
Subjective Chief Complaint: Schizophrenia Remarks: Patient seen in hallway with nurse Richey. Chart reviewed, patient noncompliant with medications. Patient continues angry paranoid showing no insight or acknowledgment of his mental illness. He continues to deny need for medication , stating that all he needs is marijuana. He then told me that I am sick and that he wants a new psychiatrist. I shared with him the involuntary position of the attending psychiatrist related to accepting the patient. I did share with him our scheduled meeting tomorrow with his parents. He then rehired me to be as Dr. Patient has refused his oral Haldol and refuses Tegretol. At this time since she has been so noncompliant with the Tegretol I will place that on hold we will continue the Haldol no change at this time considering the amount of paranoia that this patient is now exhibiting I feel his diagnosis may be further refined as schizophrenia paranoid type Review of Systems All other systems reviewed negative except as stated in HPI Mental Status Examination Appearance: Appropriate Consciousness: Vigilant Orientation: Person, Place (At least) Motor Activity: Normal gait Speech: Rapid, Hesitant Language: Adequate, Perseveration Fund of Knowledge: Adequate Attention and Concentration: Easily distracted Memory: Unremarkable Mood: Angry, Sad (Labile and crying), Oppositional, Irritable, Other (Dysphoric) Affect: Other (Marked increased range and intensity) Thought Process & Associations: Disorganized, Tangential Thought Content: Bizarre thinking, Thought blocking Hallucination Type: Other (Remains internally stimulated) Delusion Type: None, Paranoid Suicidal Ideation: No (Remains unreliable to contract for safety) Suicidal Plan: No Suicidal Intention: No Homicidal Ideation: No Homicidal Plan: No Homicidal Intention: No Insight: Poor Judgment: Poor Assessment and Plan - Assessment (1) Schizophrenia Code(s): F20.9 - Schizophrenia, unspecified Status: Deleted (2) Cannabis abuse Code(s): F12.10 - Cannabis abuse, uncomplicated Status: Acute - Plan Plan: Patient continues quite psychotic and paranoid continues to be noncompliant with medication. Denying illness only wanting to be discharged and to be treated with marijuana. He is aware that we will be meeting with his family tomorrow at this time we will Place Tegretol on hold, I feel his diagnosis may be further defined to schizophrenia paranoid type Justification for Continued Inpatient Stay: This time patient would decompensate a place to a lower level of care Discharge Planning: To be determined Request Healthcare Surrogate/Guardian Advocate?: Yes (1) Schizophrenia Qualifiers: Schizophrenia type: paranoid schizophrenia Qualified Code(s): F20.0 - Paranoid schizophrenia
[2018-03-03] MEDS: Haloperidol Lactate Oral Conc 10 MG/5 ML UDC PO SCH ×2 (08:29→20:46)
[2018-03-03] MEDS: Haloperidol Inj 5 MG/ML Ampul IM SCH ×2 (09:03→21:16)
[2018-03-03] MEDS: Senna/Docusate Sodium 8.6/50 MG Tablet PO SCH ×2 (12:49→20:48)
--- NOTE | 2018-03-03 15:17 | P.PNPSY ---
Subjective Chief Complaint: Schizophrenia Remarks: Met with patient's mother and father (stepfather bed with patient 20 years) and counselor Tan this morning. Patient's mother came in with a list of questions that were inappropriate the could be responded to only by the guardian advocate. I shared that decision with her attempted to review of the [place] hearing that led to that decision. The mother stood up said I am finished and stormed out of the conference room. We continue the session with patient's father. He shared with us that patient is mental health family history both sides of his family. There is addiction history in the family also. That the patient has had behavioral issues since a child being diagnosed early in life and his attention deficit disorder. And been on various medications in the past. He is also for a period of time dated a girl who used LSD with him. Father is in agreement with continuation of care and medication management and appropriate follow-up. Patient then seen later in the afternoon again asking to leave today. It appears she is showing some mixed compliance with medication though I question his motivation for this. He does wish to visit with his family. I stated that I would allow it if he showed another days worth of cooperation with the oral medication. And he continue the visitation as long as he was taking his oral medication patient somewhat reluctantly agreed to that Review of Systems All other systems reviewed negative except as stated in HPI Mental Status Examination Appearance: Appropriate Consciousness: Vigilant Orientation: Person, Place (At least) Motor Activity: Normal gait Speech: Rapid, Hesitant Language: Adequate, Perseveration Fund of Knowledge: Adequate Attention and Concentration: Easily distracted Memory: Unremarkable Mood: Angry, Sad (Labile and crying), Oppositional, Irritable, Other (Dysphoric) Affect: Other (Marked increased range and intensity) Thought Process & Associations: Disorganized, Tangential Thought Content: Bizarre thinking, Thought blocking Hallucination Type: Other (Remains internally stimulated) Delusion Type: None, Paranoid Suicidal Ideation: No (Remains unreliable to contract for safety) Suicidal Plan: No Suicidal Intention: No Homicidal Ideation: No Homicidal Plan: No Homicidal Intention: No Insight: Poor Judgment: Poor Assessment and Plan - Assessment (1) Schizophrenia Code(s): F20.9 - Schizophrenia, unspecified Status: Deleted (2) Cannabis abuse Code(s): F12.10 - Cannabis abuse, uncomplicated Status: Acute - Plan Plan: Patient continues paranoid delusional with no insight and very mixed compliance with medication Justification for Continued Inpatient Stay: At this time patient would decompensate a place to a lower level of care Discharge Planning: To be determined Request Healthcare Surrogate/Guardian Advocate?: Yes (1) Schizophrenia Qualifiers: Schizophrenia type: paranoid schizophrenia Qualified Code(s): F20.0 - Paranoid schizophrenia
[2018-03-04] MEDS: Senna/Docusate Sodium 8.6/50 MG Tablet PO SCH ×2 (09:00→21:38)
[2018-03-04] MEDS: Haloperidol Lactate Oral Conc 10 MG/5 ML UDC PO SCH ×2 (09:30→21:37)
[2018-03-04] MEDS: Haloperidol Inj 5 MG/ML Ampul IM SCH ×2 (09:31→21:37)
--- NOTE | 2018-03-04 12:00 | P.PNPSY ---
Subjective Chief Complaint: Schizophrenia Remarks: Reviewed electronic medical records and discussed case with staff. Follow-up was conducted in the hallway with mary Maddoxor present. Patient continues to be discharged focused. He states that he slept "wonderfully" and that his appetite's been good. He denies any auditory or visual hallucinations. He continues to refuse his Tegretol stating "I do not need it". His affect is still a bit bizarre he froze briefly when asked why he was refusing to take the Tegretol. Additionally has periods of intense staring. Patient does complain of a "twitchy leg". Apparently, this is the first time this complaint has been aired so we will have staff monitor to see if he may be developing akathisia. Mental Status Examination Appearance: Appropriate Consciousness: Vigilant Orientation: Person, Place (At least) Motor Activity: Normal gait Speech: Rapid, Hesitant Language: Adequate, Perseveration Fund of Knowledge: Adequate Attention and Concentration: Easily distracted Memory: Unremarkable Mood: Angry, Sad (Labile and crying), Oppositional, Irritable, Other (Dysphoric) Affect: Other (Marked increased range and intensity) Thought Process & Associations: Disorganized, Tangential Thought Content: Bizarre thinking, Thought blocking Hallucination Type: Other (Remains internally stimulated) Delusion Type: None, Paranoid Suicidal Ideation: No (Remains unreliable to contract for safety) Suicidal Plan: No Suicidal Intention: No Homicidal Ideation: No Homicidal Plan: No Homicidal Intention: No Insight: Poor Judgment: Poor Assessment and Plan - Assessment (1) Schizophrenia Code(s): F20.9 - Schizophrenia, unspecified Status: Deleted - Plan Plan: Patient will be reevaluated Tuesday by the attending psychiatrist. Continue with current treatment plan. Justification for Continued Inpatient Stay: Moving this patient to a less restrictive environment would likely result in decompensation. Request Healthcare Surrogate/Guardian Advocate?: Yes (1) Schizophrenia Qualifiers: Schizophrenia type: paranoid schizophrenia Qualified Code(s): F20.0 - Paranoid schizophrenia
[2018-03-05] MEDS: Haloperidol Lactate Oral Conc 10 MG/5 ML UDC PO SCH ×2 (09:25→20:30)
[2018-03-05] MEDS: Haloperidol Inj 5 MG/ML Ampul IM SCH ×2 (09:35→21:13)
[2018-03-05] MEDS: Senna/Docusate Sodium 8.6/50 MG Tablet PO SCH ×2 (09:35→21:13)
--- NOTE | 2018-03-05 09:49 | P.PNPSY ---
Subjective Chief Complaint: Schizophrenia Remarks: Reviewed electronic medical records and discussed case with staff. Follow-up was conducted in the his room with JOSE Hernandez. Patient is discharge focused. He states that he will take his medications and went to the desk asking for his medications. He denies any auditory or visual hallucinations. He endorses that he has been sleeping and eating well. He states that he feels that he is improving. He is participating in group and activities on the unit. Staff report that he does come out of his room and will talk with other patients. Review of Systems All other systems reviewed negative except as stated in HPI Mental Status Examination Appearance: Appropriate Consciousness: Vigilant Orientation: Person, Place (At least) Motor Activity: Normal gait Speech: Rapid, Hesitant Language: Adequate, Perseveration Fund of Knowledge: Adequate Attention and Concentration: Easily distracted Memory: Unremarkable Mood: Angry, Sad (Labile and crying), Oppositional, Irritable, Other (Dysphoric) Affect: Other (Marked increased range and intensity) Thought Process & Associations: Disorganized, Tangential Thought Content: Bizarre thinking, Thought blocking Hallucination Type: Other (Remains internally stimulated) Delusion Type: None, Paranoid Suicidal Ideation: No (Remains unreliable to contract for safety) Suicidal Plan: No Suicidal Intention: No Homicidal Ideation: No Homicidal Plan: No Homicidal Intention: No Insight: Poor Judgment: Poor Assessment and Plan - Assessment (1) Schizophrenia Code(s): F20.9 - Schizophrenia, unspecified Status: Acute - Plan Plan: Patient will be reevaluated Tuesday by the attending psychiatrist. Continue with current treatment plan. Justification for Continued Inpatient Stay: Moving to a less restrictive environment may result in his decompensation. Request Healthcare Surrogate/Guardian Advocate?: Yes
[2018-03-06] MEDS: Haloperidol Lactate Oral Conc 10 MG/5 ML UDC PO SCH ×2 (08:18→21:33)
[2018-03-06] MEDS: Haloperidol Inj 5 MG/ML Ampul IM SCH (08:19)
[2018-03-06] MEDS: Senna/Docusate Sodium 8.6/50 MG Tablet PO SCH ×2 (08:20→21:33)
--- NOTE | 2018-03-06 13:18 | P.TTN ---
- Patient Problems Problems: 1. Discharge planning 2. Medication compliance 3. Knowledge deficit 4. Lack of coping skills - Progress Toward Goals Provider Present: Dr. Hermilo Diaz, Dr. Carlin Caldwell Provider Input: Patient presents as psychotic, there is no one to consent for medications, patient needs to remain for further stabilization. Dr. Caldwell advise Tan to contact patient's mother to obtain collateral and more importantly to obtain consent for medications. 02-21-18 patient remains unstable , no insight, discharge focused and requires further stabilization. Patient has made no progress toward goals. February 15, 2018 patient is new to Dr. Diaz. February 22, 2018 Dr. Diaz is titrating medications, patient needs to remain for further stabilization. March 06, 2018 Dr. Diaz continues to increase medication, patient remains focused on discharge, maintains he will smoke marijuana upon discharge, remains for further stabilization. Psychiatric Counselors Present: Tan Chun Jr., [facility] Psychiatric Therapist Input: Tan attempted to contact the patient's mother yesterday, without success, left a voicemail. Patient presents as unstable, no insight, with thought blocking, appearing internally stimulated. February 15, 2018 Dr. Diaz is taking over the case is not familiar with the patient. Patient escaped from the unit yesterday and was returned by local PD last night. Mother is consenting for medications. Counselor spoke to mother and father, both will be in attendance at [place] [address] in the morning. Mother will be advocating for patient discharge, while the father will be advocating for further stabilization. Patient is on a one-to-one, attends select groups, Dr. Diaz will titrate medications. January 21, 2018 patient extremely high risk for elopement, escape focused, discharge focused, states medical marijuana is the only medication that will help to stabilize him in the long run. Patient reports he has no intent on being med compliant upon discharge. Patient is hyper focused on discharge, patient's does not appear to be making any progress toward his treatment goals at this time. Patient maintains that he will not take medications upon discharge. Patient remains adamant that marijuana is the only medicine that will help to treat his schizoaffective disorder. March 06, 2018, patient appears to be slightly more engaged in the milieu, maintains appropriate conversation, remains high risk for elopement , discharge focused, likely to self medicate with cannabis upon discharge. Patient stating he will take medications upon discharge but still maintains that marijuana is the solution to his mental illness and psychiatric symptoms. Group Spec/RT/OT/FELIZ Present: MILENA Wyman (Patient cannot attend groups at this time due to risk of elopement.), TRAY Lafleur (Attends select groups. February 22, 2018 patient attends select groups.) - Documentation Teaching Recipient: Patient
--- NOTE | 2018-03-06 15:18 | P.PNPSY ---
Subjective Chief Complaint: Schizophrenia Remarks: Patient seen and wade with nurse Evi, chart reviewed, patient reluctantly compliant medications. Patient still with no insight. While he is paying lip service to be compliant with medications and his affect is facial expressions and is affect all showed his little insight into his disease. He continues to focus on discharge today stating that his mom and dad both want him home today. This might be true of his mother but is not sure of his father. She also asked about off unit privileges. We discussed this in treatment team today refill of his history of elopement and attempts to elope and activities that appear to be elopement seeking that he needs to be kept on the unit with no off unit privileges at this time thus we will do this now we will increase his Haldol to 10 mg twice daily Review of Systems All other systems reviewed negative except as stated in HPI Mental Status Examination Appearance: Appropriate Consciousness: Vigilant Orientation: Person, Place (At least) Motor Activity: Normal gait Speech: Rapid, Hesitant Language: Adequate, Perseveration Fund of Knowledge: Adequate Attention and Concentration: Easily distracted Memory: Unremarkable Mood: Angry, Sad (Labile and crying), Oppositional, Irritable, Other (Dysphoric) Affect: Other (Marked increased range and intensity) Thought Process & Associations: Disorganized, Tangential Thought Content: Bizarre thinking, Thought blocking Hallucination Type: Other (Remains internally stimulated) Delusion Type: None, Paranoid Suicidal Ideation: No (Remains unreliable to contract for safety) Suicidal Plan: No Suicidal Intention: No Homicidal Ideation: No Homicidal Plan: No Homicidal Intention: No Insight: Poor Judgment: Poor Assessment and Plan - Assessment (1) Schizophrenia Code(s): F20.9 - Schizophrenia, unspecified Status: Deleted (2) Cannabis abuse Code(s): F12.10 - Cannabis abuse, uncomplicated Status: Acute - Plan Plan: Patient remained psychotic and delusional with very little insight into her disease. It is a decision of the treatment team that patient is a high escape/ elopement risk thus he will have no off unit privileges at this time she medication adjustment above Justification for Continued Inpatient Stay: At this time patient would decompensate a place to a lower level of care Discharge Planning: To be determined Request Healthcare Surrogate/Guardian Advocate?: Yes (1) Schizophrenia Qualifiers: Schizophrenia type: paranoid schizophrenia Qualified Code(s): F20.0 - Paranoid schizophrenia
[2018-03-06] MEDS ORDERED: Haloperidol Inj 5 MG/ML Ampul IM PRN (16:00)
[2018-03-07] MEDS: Haloperidol Lactate Oral Conc 10 MG/5 ML UDC PO SCH ×2 (08:20→20:12)
[2018-03-07] MEDS: Senna/Docusate Sodium 8.6/50 MG Tablet PO SCH (08:21)
--- NOTE | 2018-03-07 15:34 | P.PNPSY ---
Subjective Chief Complaint: Schizophrenia Remarks: Patient seen and wade with floor staff, chart reviewed, patient compliant medications albeit somewhat reluctantly. Patient is somewhat calmer today though still intrusive is still feeling very little insight. However he does wish to visit with his parents. I discussed this with Counselor Tan he feels to be in the parents is important in determining this patient's status. Thus I will allow patient off unit privileges at staff discretion to visit with family. Otherwise continue treatment no change Review of Systems All other systems reviewed negative except as stated in HPI Mental Status Examination Appearance: Appropriate Consciousness: Vigilant Orientation: Person, Place (At least) Motor Activity: Normal gait Speech: Rapid, Hesitant Language: Adequate, Perseveration Fund of Knowledge: Adequate Attention and Concentration: Easily distracted Memory: Unremarkable Mood: Angry, Sad (Labile and crying), Oppositional, Irritable, Other (Dysphoric) Affect: Other (Marked increased range and intensity) Thought Process & Associations: Disorganized, Tangential Thought Content: Bizarre thinking, Thought blocking Hallucination Type: Other (Remains internally stimulated) Delusion Type: None, Paranoid Suicidal Ideation: No (Remains unreliable to contract for safety) Suicidal Plan: No Suicidal Intention: No Homicidal Ideation: No Homicidal Plan: No Homicidal Intention: No Insight: Poor Judgment: Poor Assessment and Plan - Assessment (1) Schizophrenia Code(s): F20.9 - Schizophrenia, unspecified Status: Deleted (2) Cannabis abuse Code(s): F12.10 - Cannabis abuse, uncomplicated Status: Acute - Plan Plan: Patient continues vigilant with little insight and somewhat intrusive. Though his not speaking about his desire for marijuana at the present time Justification for Continued Inpatient Stay: At this time patient would decompensate a place to a lower level of care Discharge Planning: To be determined Request Healthcare Surrogate/Guardian Advocate?: Yes (1) Schizophrenia Qualifiers: Schizophrenia type: paranoid schizophrenia Qualified Code(s): F20.0 - Paranoid schizophrenia
[2018-03-08] MEDS: Haloperidol Lactate Oral Conc 10 MG/5 ML UDC PO SCH ×2 (09:19→20:05)
--- NOTE | 2018-03-08 11:31 | P.PNPSY ---
Subjective Chief Complaint: Schizophrenia Remarks: Reviewed electronic medical records and discussed case with staff. Follow-up was conducted in the hallway with the JOSE Starks present. Patient states that he feels "wonderful". Reports that he slept well his appetite has been good. He was observed in the hallway having staring standoff with one of the other patients prior to the follow-up. However, other than that denies any behavioral disturbances. Does remain discharge focused and continues to be a flight risk. I again reiterated to him that he would not be allowed to attend fresh air. Mental Status Examination Appearance: Appropriate Consciousness: Vigilant Orientation: Person, Place (At least) Motor Activity: Normal gait Speech: Rapid, Hesitant Language: Adequate, Perseveration Fund of Knowledge: Adequate Attention and Concentration: Easily distracted Memory: Unremarkable Mood: Angry, Sad (Labile and crying), Oppositional, Irritable, Other (Dysphoric) Affect: Other (Marked increased range and intensity) Thought Process & Associations: Disorganized, Tangential Thought Content: Bizarre thinking, Thought blocking Hallucination Type: Other (Remains internally stimulated) Delusion Type: None, Paranoid Suicidal Ideation: No (Remains unreliable to contract for safety) Suicidal Plan: No Suicidal Intention: No Homicidal Ideation: No Homicidal Plan: No Homicidal Intention: No Insight: Poor Judgment: Poor Assessment and Plan - Assessment (1) Schizophrenia Code(s): F20.9 - Schizophrenia, unspecified Status: Acute - Plan Plan: Continue with current treatment plan. I understand that the plan is to arrange for a meeting with the patient and his parents to reevaluate his progress. Justification for Continued Inpatient Stay: Moving this patient to a less restrictive environment would likely result in decompensation. Request Healthcare Surrogate/Guardian Advocate?: Yes
[2018-03-08 17:43] VITALS: BP 123/65; PULSE 83; RESP 18; TEMP 97.9; O2SAT 97
[2018-03-09] MEDS: Haloperidol Lactate Oral Conc 10 MG/5 ML UDC PO SCH (09:04)
--- NOTE | 2018-03-09 11:44 | P.DSPSY ---
Psychiatry Discharge Summary Inpatient Psychiatric care?: Yes Advance Directives: No Mental Health Advance Directive: No Health Care Proxy: No - Admission Admission Date: February 12, 2018 12:32 - Admission Diagnosis (1) Schizophrenia Code(s): F20.9 - Schizophrenia, unspecified Brief History: Mr. Keys is a 23-year-old male with a history of schizophreniform disorder who presents in transfer from [facility] under a [place] act by law enforcement. Documentation from outside hospital reviewed. Patient was brought into the hospital with cut to right forearm. According to collateral obtained by ED provider from patient's father, patient seemed depressed. When the parents went out for dinner, patient reportedly came to the restaurant with his arms covered, found to have laceration. Patient refused suture repair of laceration in the ED. reviewing our electronic medical record, I note that the patient was admitted under my care in July of this year. Patient seen and examined with counselor. Chart reviewed. Case discussed with nursing staff. On my examination today, the patient presents as disheveled. He insists that the laceration to the right hand was sustained trying to get inside his house, saying that he tripped into a window. He denies any suicidal or homicidal ideation, intent or plan saying "of course not." He denies audiovisual hallucinations, but only after a pause. He does appears somewhat internally preoccupied. I can elicit no paranoia or ideas of reference. He is evasive when I ask about feelings of thought manipulation. Mood is described as "tired, anxious to go home." Affect is dysphoric, and the patient does become tearful at points in the interview. Remainder of the psychiatric ROS is negative. No acute physical complaints. Past psychiatric history: The patient has a history of schizophreniform disorder. He reports that he follows with an outpatient provider name My in [place] but takes no psychotropic medications. Patient says "I do not need medications." He cannot say when he last took any psychotropic medications. He is somewhat evasive when I ask about interval psychiatric admissions between current admission and most recent admission at [place]. He denies a history of suicide attempts. Family history: The patient denies any family history of mental illness. Chemical dependency history: The patient reports use of cannabis saying it helps him sleep. Social history: The patient lives with his parents. He does not work. He is not presently in school. He has a girlfriend. He has no children. He denies any access to guns or firearms. Given the patient's degree of psychiatric impairment, I did endeavor to obtain collateral from the patient's mother Karen at [phone] as well as stepfather Ac Keys at [phone]. I have left generic voicemails for both requesting a call back. Tobacco Use In Past 30 Days: Yes How Often Do You Have a Drink Containing Alcohol: Never Hospital Course: This patient was admitted to a locked, psychiatric inpatient unit. All safety precautions were maintained throughout the visit. Patient was followed daily by a psychiatric provider as well as being seen by a counselor. During the early stages of this patient's stay he had behavioral disturbances and even eloped over a wall. The patient was trialed on several medications and the psychiatrist was finally able to achieve stabilization on Haldol 10 mg by mouth twice a day. Staff report that his behaviors had decreased although he continues to display some manipulative tendencies. His counselor Tan reports that he has had 2 successful family visits, he has spoke with the father on the phone and they would like the patient to be discharged to them. Upon examination today I find the patient in the Courtyard for fresh air. His mood is good his affect is euthymic. He denies being suicidal or homicidal as well as experiencing auditory or visual hallucinations. There is no indication of psychosis or celina at this time. He is appropriate and cooperative with the follow-up. At this time, I do not feel he is an imminent danger to himself or others. I do believe he has reached the maximum benefit from this inpatient admission at this time. He will be discharged to his family with instructions for establishing with an outpatient psychiatrist. He has been counseled on the importance of this follow-up and of adherence to his medication. He is advised to return to this facility should his condition worsen. - Discharge Discharge Date: 03/09/18 Discharge Disposition: Home - Discharge Instructions Activities You Can Perform: Regular- No Restrictions - Discharge Time > 30 minutes Mental Status Examination Appearance: Appropriate Consciousness: Vigilant Orientation: Person, Place (At least) Motor Activity: Normal gait Speech: Rapid, Hesitant Language: Adequate, Perseveration Fund of Knowledge: Adequate Attention and Concentration: Easily distracted Memory: Unremarkable Mood: Angry, Sad (Labile and crying), Oppositional, Irritable, Other (Dysphoric) Affect: Other (Marked increased range and intensity) Thought Process & Associations: Disorganized, Tangential Thought Content: Bizarre thinking, Thought blocking Hallucination Type: Other (Remains internally stimulated) Delusion Type: None, Paranoid Suicidal Ideation: No (Remains unreliable to contract for safety) Suicidal Plan: No Suicidal Intention: No Homicidal Ideation: No Homicidal Plan: No Homicidal Intention: No Insight: Poor Judgment: Poor Discharge/Advance Care Plan - Results Vital Signs: Last Vital Signs Temp 97.9 F 03/08/18 17:42 Pulse 83 03/08/18 17:42 Resp 18 03/08/18 17:42 BP 123/65 03/08/18 17:42 Pulse Ox 97 03/08/18 17:42 Lab Results: Laboratory Results Hemoglobin A1c 5.2 % (4.3-6.0) 02/14/18 13:00 Triglycerides 71 mg/dL (42-150) 02/14/18 13:00 Cholesterol 113 mg/dL (120-200) L 02/14/18 13:00 LDL Cholesterol, Calc 63 mg/dL (0-99) 02/14/18 13:00 HDL Cholesterol 36.1 mg/dL (40.0-60.0) L 02/14/18 13:00 Summary of Procedures: None Pending Results: None - Medications Number of antipsychotic medications at discharge: 1 - Discharge Care Plan Goals to Promote Your Health: * To prevent worsening of your condition and complications * To maintain your health at the optimal level Directions to Meet Your Goals: Take your medications as prescribed Follow your dietary instruction Follow activity as directed Keep your appointments as scheduled Take your immunizations and boosters as scheduled If your symptoms worsen call your PCP, if no PCP go to Urgent Care Center or Emergency Room For 10/01 questions related to your inpatient stay or results of tests pending at discharge, please contact DINA Alba at Smoking is Dangerous to Your Health. Avoid second hand smoking
== END 2018-03-09 15:55 | disposition home or self-care (01) ==
LOC: NEPD 02:00 → NEDA 12:32 → H260 14:03 → H270 16:06
PROVIDERS: ADMIT Psychiatry & Neurology Psychiatry; ATTEND Psychiatry & Neurology Psychiatry